=== PATIENT | female | born 1950 | race American Indian/Alaskan Native ===

== ENCOUNTER 2016-11-07 08:37 | Outpatient (CLI) | payer MEDICARE ==
--- NOTE | 2016-11-07 15:45 | PET Report ---
PET/CT:11/07/16 CLINICAL: Breast cancer restaging. RADIOPHARMACEUTICAL: 14.0mCi F18-FDG. COMPARISON: 01/03/15 PET/CT TECHNIQUE- Following intravenous injection of F-18 FDG and an approximately 60 minute uptake period, CT and PET images from the mid skull to the upper thighs were acquired with the patient in the fasted state. No contrast was administered. The CT protocol used for this PET CT study is designed for attenuation correction and anatomic localization of PET abnormalities. This bagging salvager CT is not desired to produce and cannot replace, [id number] diagnostic CT scans with specific imaging protocols for different body parts and indications. Plasma glucose at the time of this test: 117g/dl. The standardized uptake values (SUV) are normalized to patient body weight and indicate the highest activity concentration (SUV max) in a given disease site. FINDINGS: Brain--Physiologic FDG uptake in the visualized regions of the brain. Neck--Physiologic FDG uptake . Chest--Physiologic FDG uptake in mediastinal blood pool and myocardium. Massive cardiomegaly with increased size of the heart since the last exam. Lungs--No abnormal uptake. No pulmonary nodule or mass. Pleura/pericardium--No abnormal uptake. Diffuse pleural thickening has developed in the right hemithorax and there is a moderate size loculated pleural effusion or empyema. It contains no air. Thoracic nodes--No abnormal uptake. Hepatobiliary--No abnormal uptake. Liver background SUV mean, as a reference for comparing FDG studies, is 2.8 compared to 2.0 on the last exam. Stable 3 cm benign left hepatic cyst. No liver mass. Spleen--No abnormal uptake. Pancreas--No abnormal uptake. Adrenal Glands--No abnormal uptake. Kidneys/Ureters/Bladder--No abnormal uptake. Abdominopelvic Nodes--No abnormal uptake. Bowel/Peritoneum/Mesentery--No abnormal uptake. Pelvic organs--No abnormal uptake. Bones/Soft Tissues--No abnormal uptake. No bone lesions. Other findings: Status post right mastectomy. Large volume ascites. IMPRESSION-1. No evidence of FDG avid tumor. 2. Loculated right pleural effusion versus empyema. 3. Increased cardiomegaly and increased ascites.
== END 2016-11-07 08:38 | disposition home or self-care (01) ==
LOC: PET 08:37
PROVIDERS: ATTEND Internal Medicine Hematology & Oncology
DX: I50.9 Heart failure, unspecified (principal); C50.911 Malignant neoplasm of unspecified site of right female breast; I51.7 Cardiomegaly; J90 Pleural effusion, not elsewhere classified; K76.89 Other specified diseases of liver; R18.8 Other ascites; Z90.11 Acquired absence of right breast and nipple
CPT/HCPCS: 78815; 82962; A9552

== ENCOUNTER 2016-11-14 09:24 | Day surgery (SDC) | payer MEDICARE ==
[2016-11-14 10:41] LABS: INR 1.18 (0.87-1.13); Partial Thromboplastin Time < 20.0 Sec. (24.2-36.6)
[2016-11-14 13:35] VITALS: BP 120/78
--- NOTE | 2016-11-14 14:13 | Short Stay Summary ---
Short Stay Documentation Date of service: 11/14/16 - History Principal diagnosis: ascites H&P: obtained from office - Allergies and Medications Current Medications: Allergies grape Allergy (Verified 07/02/16 10:13) Itching pineapple Allergy (Verified 07/02/16 10:13) Itching Home Medications Medication Instructions Recorded Confirmed Last Taken Type Pravastatin Sodium [Pravastatin] 20 mg PO QHS 08/16/13 11/14/16 11/13/16 History Furosemide [Furosemide ORAL LIQ] 40 mg PO DAILY #30 ml 10/30/14 11/14/16 Rx Potassium Chloride [K-Dur] 20 meq PO QDAY 02/24/15 11/14/16 11/13/16 History Warfarin [Coumadin] 5 mg PO DAILY@1700 02/24/15 11/14/16 11/11/16 History Aspirin [Aspirin TAB] 325 mg PO ONCE 05/14/16 11/14/16 11/13/16 History amLODIPine [Norvasc] 10 mg PO DAILY 05/14/16 11/14/16 11/13/16 History Carvedilol [Coreg] 6.25 mg PO BID #60 tablet 06/13/16 11/14/16 11/13/16 Rx Lisinopril [Zestril TAB] 2.5 mg PO QDAY #30 tablet 06/13/16 11/14/16 11/13/16 Rx Digoxin [Lanoxin] 0.125 mg PO QDAY 08/20/16 11/14/16 11/13/16 History - Physical exam General appearance: no acute distress Gastrointestinal: distended - Brief post op/procedure progress note Date of procedure: 11/14/16 Pre-op diagnosis: ascites Post-op diagnosis: same Procedure: US paracentesis Anesthesia: local Surgeon: RAYMUNDO NIETO Estimated blood loss: none Pathology: none Specimen disposition: discarded Condition: stable - Disposition Condition at discharge: Good Short Stay Discharge Plan Additional Instructions: Make follow up appointment with .
--- NOTE | 2016-11-15 08:30 | Ultrasound Report ---
ULTRASOUND PARACENTESIS: HISTORY: Ascites. DESCRIPTION OF PROCEDURE: Informed consent was obtained. Sterile technique was utilized. 1% lidocaine for skin anesthesia. Using ultrasound guidance, a 5 Brazilian centesis needle was advanced into the left lower quadrant peritoneal space. There was spontaneous return of clear yellow fluid. 5.4 L of fluid was aspirated and discarded. No complications. IMPRESSION: Successful ultrasound-guided paracentesis.
== END 2016-11-14 13:20 ==
LOC: OPU 09:24
PROVIDERS: ATTEND Specialist
DX: R18.8 Other ascites (principal)
CPT/HCPCS: 36415; 49083; 85610; 85730

== ENCOUNTER 2016-12-16 09:32 | Day surgery (SDC) | payer MEDICARE ==
[2016-12-16 10:32] LABS: INR 1.34 (0.87-1.13)
[2016-12-16 10:33] LABS: Partial Thromboplastin Time 32.6 Sec. (24.2-36.6)
[2016-12-16] MEDS ORDERED: ALBURX 25% (ALBUMIN) IV ONE ×2 (11:56→11:57)
--- NOTE | 2016-12-16 12:00 | Short Stay Summary ---
Short Stay Documentation Date of service: 12/16/16 - Allergies and Medications Current Medications: Allergies grape Allergy (Verified 07/02/16 10:13) Itching pineapple Allergy (Verified 07/02/16 10:13) Itching Home Medications Medication Instructions Recorded Confirmed Last Taken Type Pravastatin Sodium [Pravastatin] 20 mg PO QHS 08/16/13 12/16/16 12/15/16 History 20mh Furosemide [Furosemide ORAL LIQ] 40 mg PO DAILY #30 ml 10/30/14 12/16/16 Rx 40mg Potassium Chloride [K-Dur] 20 meq PO QDAY 02/24/15 12/16/16 12/15/16 History 20meq Warfarin [Coumadin] 5 mg PO DAILY@1700 02/24/15 12/16/16 12/05/16 History Aspirin [Aspirin TAB] 325 mg PO ONCE 05/14/16 12/16/16 12/12/16 History 325mg amLODIPine [Norvasc] 10 mg PO DAILY 05/14/16 12/16/16 12/15/16 History 10mg Carvedilol [Coreg] 6.25 mg PO BID #60 tablet 06/13/16 12/16/16 12/15/16 Rx 6.25mg Lisinopril [Zestril TAB] 2.5 mg PO QDAY #30 tablet 06/13/16 12/16/16 12/15/16 Rx 2.5mg Digoxin [Lanoxin] 0.125 mg PO QDAY 08/20/16 12/16/16 12/15/16 History 0.125mg Active Medications Albumin Human (Alburx 25% (Albumin)) 25 gm IV ONCE ONE Stop: 12/16/16 11:57 - Physical exam General appearance: no acute distress Gastrointestinal: distended - Brief post op/procedure progress note Date of procedure: 12/16/16 Pre-op diagnosis: Ascites Post-op diagnosis: same Procedure: US guided paracentesis Anesthesia: local Findings: 7700 cc yellow serous fluid removed. Surgeon: THOMAS AGUILAR Estimated blood loss: none Condition: stable - Disposition Condition at discharge: Good Disposition: DISCHARGED TO HOME OR SELFCARE
--- NOTE | 2016-12-16 12:34 | Ultrasound Report ---
ULTRASOUND-GUIDED PARACENTESIS INDICATION: Ascites. COMPARISON: 11/14/2016. FINDINGS: After explaining the risk and benefits to the patient, written informed consent obtained. Using ultrasound guidance, an appropriate skin site in the left lower quadrant marked. Skin prepped and draped in the usual sterile fashion. 1% Xylocaine used for local anesthesia. Using ultrasound guidance, a 5 Naur[place] Yueh catheter was placed into the fluid collection and 7700 cc of straw-colored fluid aspirated. No sample sent to laboratory. Catheter removed and hemostasis achieved. Patient tolerated the procedure well and left the radiology department in stable condition. CONCLUSION: Ultrasound guided paracentesis, as described above. IV albumin would be administered in the [facility]PP[facility]. Dr. Patton present for and performed the entire procedure. Thank you for the opportunity to participate in this patient's care.
[2016-12-16 13:33] VITALS: BP 118/71
== END 2016-12-16 13:50 | disposition home or self-care (01) ==
LOC: OPU 09:32
PROVIDERS: ATTEND Specialist
DX: R18.8 Other ascites (principal); I48.91 Unspecified atrial fibrillation; E78.5 Hyperlipidemia, unspecified; D64.9 Anemia, unspecified; I11.0 Hypertensive heart disease with heart failure; I50.23 Acute on chronic systolic (congestive) heart failure; Z85.3 Personal history of malignant neoplasm of breast; Z79.01 Long term (current) use of anticoagulants
CPT/HCPCS: 36415; 49083; 85610; 85730; 96365; P9047

== ENCOUNTER 2017-01-16 08:18 | Day surgery (SDC) | payer MEDICARE ==
[2017-01-16 09:46] LABS: INR 1.52 (0.87-1.13)
[2017-01-16 09:47] LABS: Partial Thromboplastin Time 30.1 Sec. (24.2-36.6)
[2017-01-16 11:33] VITALS: BP 119/67
--- NOTE | 2017-01-16 11:58 | Short Stay Summary ---
Short Stay Documentation Date of service: 01/16/17 - History Principal diagnosis: Ascites - Allergies and Medications Current Medications: Allergies grape Allergy (Verified 07/02/16 10:13) Itching pineapple Allergy (Verified 07/02/16 10:13) Itching Home Medications Medication Instructions Recorded Confirmed Last Taken Type Pravastatin Sodium [Pravastatin] 20 mg PO QHS 08/16/13 01/16/17 01/15/17 History Furosemide [Furosemide ORAL LIQ] 40 mg PO DAILY #30 ml 10/30/14 01/16/17 Rx Potassium Chloride [K-Dur] 20 meq PO QDAY 02/24/15 01/16/17 01/15/17 History Warfarin [Coumadin] 5 mg PO DAILY@1700 02/24/15 01/16/17 01/12/17 History Aspirin [Aspirin TAB] 325 mg PO ONCE 05/14/16 01/16/17 01/12/17 History amLODIPine [Norvasc] 10 mg PO DAILY 05/14/16 01/16/17 01/15/17 History Carvedilol [Coreg] 6.25 mg PO BID #60 tablet 06/13/16 01/16/17 01/15/17 Rx Lisinopril [Zestril TAB] 2.5 mg PO QDAY #30 tablet 06/13/16 01/16/17 01/15/17 Rx Digoxin [Lanoxin] 0.125 mg PO QDAY 08/20/16 01/16/17 01/15/17 History - Physical exam General appearance: no acute distress - Brief post op/procedure progress note Date of procedure: 01/16/17 Pre-op diagnosis: Ascites Post-op diagnosis: same Procedure: Paracentesis Anesthesia: local Estimated blood loss: none Pathology: none Specimen disposition: discarded Condition: stable - Disposition Condition at discharge: Good Disposition: DISCHARGED TO HOME OR SELFCARE Short Stay Discharge Plan Additional Instructions: Follow up with MD as scheduled.
--- NOTE | 2017-01-29 08:36 | Ultrasound Report ---
Ultrasound guided paracentesis. History: Ascites. Procedure: The patient's skin surface overlying the left lower quadrant was prepped and draped using sterile technique. Local anesthetic was injected in the skin. Using sonographic guidance, a 5 Kiswahili Yueh catheter was inserted into the fluid collection. 3.5 L of serous fluid was aspirated. The patient tolerated the procedure well clinically.
== END 2017-01-16 12:25 | disposition home or self-care (01) ==
LOC: OPU 08:18 → EDSTATUS 09:00 → OPU 12:25
PROVIDERS: ATTEND Specialist
DX: R18.8 Other ascites (principal); I10 Essential (primary) hypertension; E78.5 Hyperlipidemia, unspecified; I48.91 Unspecified atrial fibrillation; Z85.3 Personal history of malignant neoplasm of breast; Z90.11 Acquired absence of right breast and nipple; Z79.899 Other long term (current) drug therapy; Z80.42 Family history of malignant neoplasm of prostate; Z80.1 Family history of malignant neoplasm of trachea, bronchus and lung; Z82.3 Family history of stroke; Z82.49 Family history of ischemic heart disease and other diseases of the circulatory system; Z83.1 Family history of other infectious and parasitic diseases
CPT/HCPCS: 36415; 49083; 85610; 85730

== ENCOUNTER 2017-02-13 08:20 | Day surgery (SDC) | payer MEDICARE ==
[2017-02-13 10:21] LABS: INR 1.51 (0.87-1.13); Partial Thromboplastin Time 28.8 Sec. (24.2-36.6)
--- NOTE | 2017-02-13 13:04 | Short Stay Summary ---
Short Stay Documentation Date of service: 02/13/17 - History Past Medical History: cancer - Allergies and Medications Current Medications: Allergies grape Allergy (Verified 07/02/16 10:13) Itching pineapple Allergy (Verified 07/02/16 10:13) Itching Home Medications Medication Instructions Recorded Confirmed Last Taken Type Pravastatin Sodium [Pravastatin] 20 mg PO QHS 08/16/13 02/13/17 02/05/17 History Furosemide [Furosemide ORAL LIQ] 40 mg PO DAILY #30 ml 10/30/14 02/13/17 Rx Potassium Chloride [K-Dur] 20 meq PO QDAY 02/24/15 02/13/17 02/12/17 History Warfarin [Coumadin] 5 mg PO DAILY@1700 02/24/15 02/13/17 02/09/17 History Aspirin [Aspirin TAB] 325 mg PO ONCE 05/14/16 02/13/17 02/09/17 History amLODIPine [Norvasc] 10 mg PO DAILY 05/14/16 02/13/17 02/12/17 History Carvedilol [Coreg] 6.25 mg PO BID #60 tablet 06/13/16 02/13/17 02/12/17 Rx Lisinopril [Zestril TAB] 2.5 mg PO QDAY #30 tablet 06/13/16 02/13/17 02/12/17 Rx Digoxin [Lanoxin] 0.125 mg PO QDAY 08/20/16 02/13/17 02/12/17 History - Physical exam General appearance: no acute distress Gastrointestinal: distended - Brief post op/procedure progress note Date of procedure: 02/13/17 Pre-op diagnosis: Ascites, mets, breast Ca Post-op diagnosis: same Procedure: US guided paracentesis Anesthesia: local Findings: 4800 cc of blood tinged fluid removed. Surgeon: THOMAS AGUILAR Estimated blood loss: none Specimen disposition: discarded Condition: stable
--- NOTE | 2017-02-13 13:06 | Ultrasound Report ---
ULTRASOUND-GUIDED PARACENTESIS INDICATION: Ascites. Breast carcinoma, metastases. COMPARISON: 01/16/2017. FINDINGS: After explaining the risk and benefits to the patient, written informed consent obtained. Using ultrasound guidance, an appropriate skin site in the left lower quadrant marked. Skin prepped and draped in the usual sterile fashion. 1% Xylocaine used for local anesthesia. Using ultrasound guidance, a 5 [place] Yueh catheter was placed into the fluid collection and 4800 cc of blood-tinged serous fluid aspirated. No sample sent to laboratory. Catheter removed and hemostasis achieved. Patient tolerated the procedure well and left the radiology department in stable condition. CONCLUSION: Ultrasound guided paracentesis, as described above. Dr. Patton present for and performed the entire procedure. Thank you for the opportunity to participate in this patient's care.
[2017-02-13 13:18] VITALS: BP 121/70
== END 2017-02-13 13:25 | disposition home or self-care (01) ==
LOC: OPU 08:20 → EDSTATUS 09:00 → OPU 13:25
PROVIDERS: ATTEND Specialist
DX: R18.8 Other ascites (principal); C50.919 Malignant neoplasm of unspecified site of unspecified female breast; Z79.01 Long term (current) use of anticoagulants
CPT/HCPCS: 36415; 49083; 85610; 85730

== ENCOUNTER 2017-03-27 08:23 | Day surgery (SDC) | payer MEDICARE ==
[2017-03-27 09:29] LABS: Eosinophils % (Auto) 6.4 % (0.0-4.3); Hematocrit 35.5 % (30.3-42.9); Hemoglobin 11.4 gm/dl (10.1-14.3); Mean Corpuscular HGB Conc 32 % (30-34); Mean Corpuscular Hemoglobin 26 pg (28-32); Mean Corpuscular Volume 82 fl (79-97); Platelet Count 191 K/mm3 (140-440); Red Blood Count 4.34 M/mm3 (3.65-5.03); Red Cell Distribution Width 19.5 % (13.2-15.2)
[2017-03-27 09:37] LABS: INR 1.48 (0.87-1.13)
--- NOTE | 2017-03-27 12:52 | Short Stay Summary ---
Short Stay Documentation Date of service: 03/27/17 - History Past Medical History: cancer - Allergies and Medications Current Medications: Allergies grape Allergy (Verified 07/02/16 10:13) Itching pineapple Allergy (Verified 07/02/16 10:13) Itching Home Medications Medication Instructions Recorded Confirmed Last Taken Type Pravastatin Sodium [Pravastatin] 20 mg PO QHS 08/16/13 03/27/17 03/26/17 History Furosemide [Furosemide ORAL LIQ] 40 mg PO DAILY #30 ml 10/30/14 03/27/17 Rx Potassium Chloride [K-Dur] 20 meq PO QDAY 02/24/15 03/27/17 03/26/17 History Warfarin [Coumadin] 5 mg PO DAILY@1700 02/24/15 03/27/17 03/23/17 History Aspirin [Aspirin TAB] 325 mg PO ONCE 05/14/16 03/27/17 03/26/17 History amLODIPine [Norvasc] 10 mg PO DAILY 05/14/16 03/27/17 03/26/17 History Carvedilol [Coreg] 6.25 mg PO BID #60 tablet 06/13/16 03/27/17 03/26/17 Rx Lisinopril [Zestril TAB] 2.5 mg PO QDAY #30 tablet 06/13/16 03/27/17 03/26/17 Rx Digoxin [Lanoxin] 0.125 mg PO QDAY 08/20/16 03/27/17 03/26/17 History - Physical exam General appearance: no acute distress Gastrointestinal: distended - Brief post op/procedure progress note Date of procedure: 03/27/17 Pre-op diagnosis: Ascites Post-op diagnosis: same Procedure: US guided paracentesis. Anesthesia: local Findings: 5300 cc blood tinged serous fluid removed. Surgeon: THOMAS AGUILAR Estimated blood loss: none Specimen disposition: discarded Condition: stable - Disposition Condition at discharge: Good Disposition: DISCHARGED TO HOME OR SELFCARE Short Stay Discharge Plan Follow up with: SOFIE VASUQEZ MD [Primary Care Provider] - 7 Days
--- NOTE | 2017-03-27 12:58 | Ultrasound Report ---
ULTRASOUND-GUIDED PARACENTESIS INDICATION: Ascites. Breast cancer. COMPARISON: 02/13/2017. FINDINGS: After explaining the risk and benefits to the patient, written informed consent obtained. Using ultrasound guidance, an appropriate skin site in the left lower quadrant marked. Skin prepped and draped in the usual sterile fashion. 1% Xylocaine used for local anesthesia. Using ultrasound guidance, a 5 Maltese Yueh catheter was placed into the fluid collection and 5300 cc of blood-tinged serous fluid aspirated. No sample sent to laboratory. Catheter removed and hemostasis achieved. Patient tolerated the procedure well and left the radiology department in stable condition. CONCLUSION: Ultrasound guided paracentesis, as described above. Dr. Patton present for and performed the entire procedure. Thank you for the opportunity to participate in this patient's care.
[2017-03-27 13:19] VITALS: BP 119/60
== END 2017-03-27 08:24 | disposition home or self-care (01) ==
LOC: OPU 08:23
PROVIDERS: ATTEND Specialist
DX: R18.8 Other ascites (principal); Z91.018 Allergy to other foods; Z85.3 Personal history of malignant neoplasm of breast
CPT/HCPCS: 36415; 49083; 85025; 85610

== ENCOUNTER 2017-04-25 07:55 | Day surgery (SDC) | payer MEDICARE ==
[2017-04-25] MEDS ORDERED: ALBURX 25% (ALBUMIN) IV PRN (10:31)
--- NOTE | 2017-04-25 10:31 | Short Stay Summary ---
Short Stay Documentation Date of service: 04/25/17 - History Principal diagnosis: ascites H&P: obtained from office - Allergies and Medications Current Medications: Allergies grape Allergy (Verified 07/02/16 10:13) Itching pineapple Allergy (Verified 07/02/16 10:13) Itching Home Medications Medication Instructions Recorded Confirmed Last Taken Type Pravastatin Sodium [Pravastatin] 20 mg PO QHS 08/16/13 04/25/17 04/24/17 History Furosemide [Furosemide ORAL LIQ] 40 mg PO DAILY #30 ml 10/30/14 04/25/17 Rx Potassium Chloride [K-Dur] 20 meq PO QDAY 02/24/15 04/25/17 04/24/17 History Warfarin [Coumadin] 5 mg PO DAILY@1700 02/24/15 04/25/17 04/22/17 History Aspirin [Aspirin TAB] 325 mg PO ONCE 05/14/16 04/25/17 04/24/17 History amLODIPine [Norvasc] 10 mg PO DAILY 05/14/16 04/25/17 04/24/17 History Carvedilol [Coreg] 6.25 mg PO BID #60 tablet 06/13/16 04/25/17 04/24/17 Rx Lisinopril [Zestril TAB] 2.5 mg PO QDAY #30 tablet 06/13/16 04/25/17 04/24/17 Rx Digoxin [Lanoxin] 0.125 mg PO QDAY 08/20/16 04/25/17 04/24/17 History - Physical exam General appearance: no acute distress Gastrointestinal: distended - Brief post op/procedure progress note Date of procedure: 04/25/17 Pre-op diagnosis: ascites Post-op diagnosis: same Procedure: US paracentesis Anesthesia: local Findings: large ascites Surgeon: RAYMUNDO NIETO Estimated blood loss: none Pathology: none Specimen disposition: discarded Condition: stable - Disposition Condition at discharge: Good Disposition: DC-01 TO HOME OR SELFCARE Short Stay Discharge Plan Follow up with: SOFIE VASQUEZ MD [Primary Care Provider] - 7 Days
--- NOTE | 2017-04-25 11:38 | Ultrasound Report ---
ULTRASOUND PARACENTESIS History: Ascites. Description of procedure: Informed consent was obtained. Sterile technique was utilized. Using ultrasound guidance, a 5 [place]orese centesis needle was advanced into the left lower quadrant peritoneal space. There was spontaneous return of clear yellow fluid. 7.3 L of fluid was aspirated and discarded. No complications. Impression: Successful ultrasound guided large volume paracentesis.
[2017-04-25 12:24] VITALS: BP 117/74
== END 2017-04-25 13:00 | disposition home or self-care (01) ==
LOC: OPU 07:55
PROVIDERS: ATTEND Specialist
DX: R18.8 Other ascites (principal); I10 Essential (primary) hypertension; Z79.899 Other long term (current) drug therapy; Z79.01 Long term (current) use of anticoagulants; Z91.018 Allergy to other foods
CPT/HCPCS: 49083; 96365; P9047

== ENCOUNTER 2017-05-26 06:31 | Day surgery (SDC) | payer MEDICARE ==
[2017-05-26 07:38] VITALS: BP 119/66
[2017-05-26 08:10] LABS: INR 1.37 (0.87-1.13); Partial Thromboplastin Time 30.4 Sec. (24.2-36.6)
== END 2017-05-26 08:30 | disposition home or self-care (01) ==
LOC: CATHLABREC 06:31 → EDSTATUS 07:30 → CATHLABREC 08:30
PROVIDERS: ATTEND Specialist
DX: R18.8 Other ascites (principal); Z53.8 Procedure and treatment not carried out for other reasons
CPT/HCPCS: 36415; 85610; 85730

== ENCOUNTER 2017-05-29 06:55 | Day surgery (SDC) | payer MEDICARE ==
[2017-05-29 08:36] LABS: INR 1.39 (0.87-1.13)
[2017-05-29 08:37] LABS: Partial Thromboplastin Time 29.5 Sec. (24.2-36.6)
[2017-05-29] MEDS ORDERED: ALBURX 25% (ALBUMIN) IV ONE ×2 (11:10→11:13)
--- NOTE | 2017-05-29 12:13 | Short Stay Summary ---
Short Stay Documentation Date of service: 05/29/17 - History Principal diagnosis: Ascites - Allergies and Medications Current Medications: Allergies grape Allergy (Verified 07/02/16 10:13) Itching pineapple Allergy (Verified 07/02/16 10:13) Itching Home Medications Medication Instructions Recorded Confirmed Last Taken Type Pravastatin Sodium [Pravastatin] 20 mg PO QHS 08/16/13 05/29/17 05/28/17 History Furosemide [Furosemide ORAL LIQ] 40 mg PO DAILY #30 ml 10/30/14 05/29/17 Rx Potassium Chloride [K-Dur] 20 meq PO QDAY 02/24/15 05/29/17 05/28/17 History Warfarin [Coumadin] 5 mg PO DAILY@1700 02/24/15 05/29/17 05/22/17 History 5mg Aspirin [Aspirin TAB] 325 mg PO ONCE 05/14/16 05/29/17 05/22/17 History 325mg amLODIPine [Norvasc] 10 mg PO DAILY 05/14/16 05/29/17 05/28/17 History Carvedilol [Coreg] 6.25 mg PO BID #60 tablet 06/13/16 05/29/17 05/28/17 Rx Lisinopril [Zestril TAB] 2.5 mg PO QDAY #30 tablet 06/13/16 05/29/17 05/28/17 Rx Digoxin [Lanoxin] 0.125 mg PO QDAY 08/20/16 05/29/17 05/28/17 History - Physical exam General appearance: no acute distress Gastrointestinal: distended - Brief post op/procedure progress note Date of procedure: 05/29/17 Pre-op diagnosis: Ascites Post-op diagnosis: same Procedure: Paracentesis Surgeon: JAMES JIMENEZ Estimated blood loss: none Pathology: none Specimen disposition: discarded Condition: stable - Disposition Condition at discharge: Good Disposition: DC-01 TO HOME OR SELFCARE Short Stay Discharge Plan Follow up with: BLANCA IQBAL MD [Staff Physician] - 7 Days SOFIE VASQUEZ MD [Primary Care Provider] - 7 Days
[2017-05-29 13:46] VITALS: BP 112/65
--- NOTE | 2017-05-29 14:37 | Ultrasound Report ---
Ultrasound guided paracentesis. History: Ascites. Procedure: The patient's skin surface overlying the left lower quadrant was prepped and draped using sterile technique. Local anesthetic was injected into the skin. Using sonographic guidance, a 5 Turkish catheter was inserted into the fluid collection. Approximately 8 L of serous fluid was aspirated and discarded. After the procedure, the patient was given 50 g of albumin intravenously. The patient was then discharged in satisfactory condition.
== END 2017-05-29 13:35 | disposition home or self-care (01) ==
LOC: CATHLABREC 06:55
PROVIDERS: ATTEND Specialist
DX: R18.8 Other ascites (principal); Z91.018 Allergy to other foods; Z79.01 Long term (current) use of anticoagulants
CPT/HCPCS: 36415; 49083; 85610; 85730; 96365; 96366; P9047

== ENCOUNTER 2017-06-26 07:02 | Day surgery (SDC) | payer MEDICARE ==
[2017-06-26 08:14] LABS: INR 1.3 (0.87-1.13)
[2017-06-26 08:15] LABS: Partial Thromboplastin Time 29.6 Sec. (24.2-36.6)
--- NOTE | 2017-06-26 10:10 | History and Physical Report ---
History of Present Illness Date of examination: 06/26/17 Chief complaint: distended abdomen Medications and Allergies Allergies Allergy/AdvReac Type Severity Reaction Status Date / Time grape Allergy Itching Verified 07/02/16 10:13 pineapple Allergy Itching Verified 07/02/16 10:13 Home Medications Medication Instructions Recorded Confirmed Last Taken Type Pravastatin Sodium [Pravastatin] 20 mg PO QHS 08/16/13 06/26/17 06/25/17 History Furosemide [Furosemide ORAL LIQ] 40 mg PO DAILY #30 ml 10/30/14 06/26/17 Rx Potassium Chloride [K-Dur] 20 meq PO QDAY 02/24/15 06/26/17 06/25/17 History Warfarin [Coumadin] 5 mg PO DAILY@1700 02/24/15 06/26/17 06/22/17 History Aspirin [Aspirin TAB] 325 mg PO ONCE 05/14/16 06/26/17 06/22/17 History amLODIPine [Norvasc] 10 mg PO DAILY 05/14/16 06/26/17 06/25/17 History Carvedilol [Coreg] 6.25 mg PO BID #60 tablet 06/13/16 06/26/17 06/25/17 Rx Lisinopril [Zestril TAB] 2.5 mg PO QDAY #30 tablet 06/13/16 06/26/17 06/25/17 Rx Digoxin [Lanoxin] 0.125 mg PO QDAY 08/20/16 06/26/17 06/25/17 History Palbociclib [Ibrance] 125 mg PO QDAY 06/26/17 06/26/17 06/25/17 History Exam Vital Signs Temp Pulse Resp BP Pulse Ox 97.6 F 62 18 118/68 94 06/26/17 07:30 06/26/17 07:30 06/26/17 07:30 06/26/17 07:30 06/26/17 07:30
--- NOTE | 2017-06-26 10:12 | Procedure Note ---
Date of procedure: 06/26/17 Pre-op diagnosis: ascites Post-op diagnosis: same Procedure: paracentesis Findings: straw colored fluid Anesthesia: local Surgeon: KIKI CAMILO Estimated blood loss: none Pathology: none Specimen disposition: discarded Condition: stable Disposition: observation
--- NOTE | 2017-06-26 11:10 | Ultrasound Report ---
Ultrasound guided paracentesis: Ascites. Imaging of the abdomen demonstrated a significant by him of free peritoneal fluid. An approach site in the left flank was chosen. The skin was cleansed and 1% lidocaine used for local anesthesia. The area was draped. A small skin mansoor was made through which a 5 [place] Yueh catheter was successfully placed into the fluid collection. A total of 5.7 L of straw-colored fluid was removed without complication. The fluid was discarded. The patient was sent to the observation prior to discharge.
[2017-06-26 11:16] VITALS: BP 113/60
== END 2017-06-26 11:35 | disposition home or self-care (01) ==
LOC: CATHLABREC 07:02 → EDSTATUS 07:30 → CATHLABREC 11:35
PROVIDERS: ATTEND Specialist
DX: R18.8 Other ascites (principal); Z91.018 Allergy to other foods; Z79.01 Long term (current) use of anticoagulants
CPT/HCPCS: 36415; 49083; 85610; 85730

== ENCOUNTER 2017-07-21 06:52 | Day surgery (SDC) | payer MEDICARE ==
[2017-07-21 08:08] LABS: INR 1.28 (0.87-1.13); Partial Thromboplastin Time 32.5 Sec. (24.2-36.6)
[2017-07-21 09:44] VITALS: BP 124/65
--- NOTE | 2017-07-21 09:52 | Ultrasound Report ---
ULTRASOUND-GUIDED PARACENTESIS INDICATION: Ascites. Metastatic breast cancer. COMPARISON: 06/26/2017. FINDINGS: After explaining the risk and benefits to the patient, written informed consent obtained. Using ultrasound guidance, an appropriate skin site in the left lower quadrant marked. Skin prepped and draped in the usual sterile fashion. 1% Xylocaine used for local anesthesia. Using ultrasound guidance, a 5 Indonesian Yueh catheter was placed into the fluid collection and 4600 cc of dark yellow fluid aspirated. No sample sent to laboratory. Catheter removed and hemostasis achieved. Patient tolerated the procedure well and left the radiology department in stable condition. CONCLUSION: Ultrasound guided paracentesis, as described above. Dr. Patton present for and performed the entire procedure. Thank you for the opportunity to participate in this patient's care.
--- NOTE | 2017-07-21 09:58 | Short Stay Summary ---
Short Stay Documentation Date of service: 07/21/17 - History Past Medical History: cancer - Allergies and Medications Current Medications: Allergies grape Allergy (Verified 07/02/16 10:13) Itching pineapple Allergy (Verified 07/02/16 10:13) Itching Home Medications Medication Instructions Recorded Confirmed Last Taken Type Pravastatin Sodium [Pravastatin] 20 mg PO QHS 08/16/13 07/21/17 07/20/17 History Furosemide [Furosemide ORAL LIQ] 40 mg PO DAILY #30 ml 10/30/14 07/21/17 Rx Potassium Chloride [K-Dur] 20 meq PO QDAY 02/24/15 07/21/17 07/20/17 History Warfarin [Coumadin] 5 mg PO DAILY@1700 02/24/15 07/21/17 07/17/17 History Aspirin [Aspirin TAB] 325 mg PO ONCE 05/14/16 07/21/17 07/20/17 History amLODIPine [Norvasc] 10 mg PO DAILY 05/14/16 07/21/17 07/20/17 History Carvedilol [Coreg] 6.25 mg PO BID #60 tablet 06/13/16 07/21/17 07/20/17 Rx Lisinopril [Zestril TAB] 2.5 mg PO QDAY #30 tablet 06/13/16 07/21/17 07/20/17 Rx Digoxin [Lanoxin] 0.125 mg PO QDAY 08/20/16 07/21/17 07/20/17 History Palbociclib [Ibrance] 125 mg PO QDAY 06/26/17 07/21/17 07/20/17 History - Physical exam General appearance: no acute distress Gastrointestinal: distended - Brief post op/procedure progress note Date of procedure: 07/21/17 Pre-op diagnosis: Ascites Post-op diagnosis: same Procedure: US guided paracentesis Anesthesia: local Findings: 4.6 liters of yellow serous fuid removed. Surgeon: THOMAS AGUILAR Estimated blood loss: none Specimen disposition: discarded Condition: stable - Disposition Condition at discharge: Stable Disposition: DC-01 TO HOME OR SELFCARE Short Stay Discharge Plan Follow up with: SOFIE VASQUEZ MD [Primary Care Provider] - 7 Days
== END 2017-07-21 11:00 | disposition home or self-care (01) ==
LOC: CATHLABREC 06:52 → EDSTATUS 07:30 → CATHLABREC 11:00
PROVIDERS: ATTEND Specialist
DX: R18.8 Other ascites (principal); C50.919 Malignant neoplasm of unspecified site of unspecified female breast; Z79.01 Long term (current) use of anticoagulants; Z91.018 Allergy to other foods
CPT/HCPCS: 36415; 49083; 85610; 85730

== ENCOUNTER 2017-08-26 06:56 | Day surgery (SDC) | payer MEDICARE ==
[2017-08-26 08:01] LABS: Hematocrit 31.1 % (30.3-42.9); Hemoglobin 10.7 gm/dl (10.1-14.3); Mean Corpuscular HGB Conc 34 % (30-34); Mean Corpuscular Hemoglobin 33 pg (28-32); Mean Corpuscular Volume 95 fl (79-97); Platelet Count 111 K/mm3 (140-440); Red Blood Count 3.26 M/mm3 (3.65-5.03)
[2017-08-26 08:12] LABS: INR 1.28 (0.87-1.13)
[2017-08-26 08:13] LABS: Partial Thromboplastin Time 30.3 Sec. (24.2-36.6)
[2017-08-26 08:15] LABS: Red Cell Distribution Width 26.9 % (13.2-15.2); White Blood Count 2.2 K/mm3 (4.5-11.0)
--- NOTE | 2017-08-26 10:34 | Ultrasound Report ---
ULTRASOUND-GUIDED PARACENTESIS INDICATION: Ascites. COMPARISON: 07/21/2017. FINDINGS: After explaining the risk and benefits to the patient, written informed consent obtained. Using ultrasound guidance, an appropriate skin site in the right lower quadrant marked. Skin prepped and draped in the usual sterile fashion. 1% Xylocaine used for local anesthesia. Using ultrasound guidance, a 5 Kyrgyz Yueh catheter was placed into the fluid collection and 3800 cc of dark yellow/slight blood tinged fluid aspirated. No sample sent to laboratory. Catheter removed and hemostasis achieved. Patient tolerated the procedure well and left the radiology department in stable condition. CONCLUSION: Ultrasound guided paracentesis, as described above. Dr. Patton present for and performed the entire procedure. Thank you for the opportunity to participate in this patient's care.
[2017-08-26 10:40] VITALS: BP 115/75
--- NOTE | 2017-08-26 10:40 | Short Stay Summary ---
Short Stay Documentation Date of service: 08/26/17 - Allergies and Medications Current Medications: Allergies grape Allergy (Verified 07/02/16 10:13) Itching pineapple Allergy (Verified 07/02/16 10:13) Itching Home Medications Medication Instructions Recorded Confirmed Last Taken Type Pravastatin Sodium [Pravastatin] 20 mg PO QHS 08/16/13 08/26/17 08/25/17 History Furosemide [Furosemide ORAL LIQ] 40 mg PO DAILY #30 ml 10/30/14 08/26/17 Rx Potassium Chloride [K-Dur] 20 meq PO QDAY 02/24/15 08/26/17 08/25/17 History Warfarin [Coumadin] 6 mg PO DAILY@1700 02/24/15 08/26/17 08/22/17 History Aspirin [Aspirin TAB] 325 mg PO ONCE 05/14/16 08/26/17 08/22/17 History amLODIPine [Norvasc] 10 mg PO DAILY 05/14/16 08/26/17 08/25/17 History Carvedilol [Coreg] 6.25 mg PO BID #60 tablet 06/13/16 08/26/17 08/25/17 Rx Lisinopril [Zestril TAB] 2.5 mg PO QDAY #30 tablet 06/13/16 08/26/17 08/25/17 Rx Digoxin [Lanoxin] 0.125 mg PO QDAY 08/20/16 08/26/17 08/25/17 History Palbociclib [Ibrance] 125 mg PO QDAY 06/26/17 08/26/17 08/25/17 History - Physical exam General appearance: no acute distress Gastrointestinal: distended - Brief post op/procedure progress note Date of procedure: 08/26/17 Pre-op diagnosis: Ascites Post-op diagnosis: same Procedure: US guided paracentesis Anesthesia: local Findings: 3800 dark yellow/slight blood tinged fluid removed. Surgeon: THOMAS AGUILAR Estimated blood loss: none Specimen disposition: discarded Condition: stable - Disposition Condition at discharge: Stable Disposition: DC-01 TO HOME OR SELFCARE Short Stay Discharge Plan Additional Instructions: Resume diet, activity and medications as prior to admission. May shower 08/27/2017. Report to MD any redness, swelling, drainage or fever. Follow up with Dr. Carvalho as needed. Follow up with: SOFIE VASQUEZ MD [Primary Care Provider] - 7 Days
== END 2017-08-26 11:00 | disposition home or self-care (01) ==
LOC: CATHLABREC 06:56 → EDSTATUS 07:30 → CATHLABREC 11:00
PROVIDERS: ATTEND Specialist
DX: R18.8 Other ascites (principal); J90 Pleural effusion, not elsewhere classified; Z79.82 Long term (current) use of aspirin; Z79.01 Long term (current) use of anticoagulants; Z79.899 Other long term (current) drug therapy; Z91.018 Allergy to other foods
CPT/HCPCS: 36415; 49083; 85027; 85610; 85730

== ENCOUNTER 2017-09-25 07:01 | Day surgery (SDC) | payer MEDICARE ==
[2017-09-25 09:16] LABS: INR 1.31 (0.87-1.13)
[2017-09-25 09:17] LABS: Partial Thromboplastin Time 29.9 Sec. (24.2-36.6)
[2017-09-25] MEDS ORDERED: ALBURX 25% (ALBUMIN) IV PRN (10:31)
--- NOTE | 2017-09-25 10:31 | Short Stay Summary ---
Short Stay Documentation Date of service: 09/25/17 - History Principal diagnosis: ascites H&P: obtained from office - Allergies and Medications Current Medications: Allergies grape Allergy (Verified 07/02/16 10:13) Itching pineapple Allergy (Verified 07/02/16 10:13) Itching Home Medications Medication Instructions Recorded Confirmed Last Taken Type Pravastatin Sodium [Pravastatin] 20 mg PO QHS 08/16/13 08/26/17 08/25/17 History Furosemide [Furosemide ORAL LIQ] 40 mg PO DAILY #30 ml 10/30/14 08/26/17 Rx Potassium Chloride [K-Dur] 20 meq PO QDAY 02/24/15 08/26/17 08/25/17 History Warfarin [Coumadin] 6 mg PO DAILY@1700 02/24/15 08/26/17 08/22/17 History Aspirin [Aspirin TAB] 325 mg PO ONCE 05/14/16 08/26/17 08/22/17 History amLODIPine [Norvasc] 10 mg PO DAILY 05/14/16 08/26/17 08/25/17 History Carvedilol [Coreg] 6.25 mg PO BID #60 tablet 06/13/16 08/26/17 08/25/17 Rx Lisinopril [Zestril TAB] 2.5 mg PO QDAY #30 tablet 06/13/16 08/26/17 08/25/17 Rx Digoxin [Lanoxin] 0.125 mg PO QDAY 08/20/16 08/26/17 08/25/17 History Palbociclib [Ibrance] 125 mg PO QDAY 06/26/17 08/26/17 08/25/17 History - Physical exam General appearance: no acute distress Gastrointestinal: distended - Brief post op/procedure progress note Date of procedure: 09/25/17 Pre-op diagnosis: ascites Post-op diagnosis: same Procedure: US paracentesis Anesthesia: local Findings: large ascites Surgeon: RAYMUNDO NIETO Estimated blood loss: none Pathology: none Specimen disposition: discarded Condition: stable - Disposition Condition at discharge: Good Disposition: DC-01 TO HOME OR SELFCARE Short Stay Discharge Plan Follow up with: SOFIE VASQUEZ MD [Primary Care Provider] - 7 Days
--- NOTE | 2017-09-25 12:25 | Ultrasound Report ---
ULTRASOUND PARACENTESIS History: Ascites. Description of procedure: Informed consent was obtained. Sterile technique was utilized. 1% lidocaine for skin anesthesia. Using ultrasound guidance, a 5 Korean centesis needle was advanced into the left lower quadrant peritoneal space. There was spontaneous return of blood-tinged fluid. 6.3 L of fluid was aspirated and discarded. No complications. Impression: Successful ultrasound guided paracentesis as described.
[2017-09-25 12:42] VITALS: BP 118/58
== END 2017-09-25 12:45 | disposition home or self-care (01) ==
LOC: CATHLABREC 07:01 → EDSTATUS 07:30 → CATHLABREC 12:45
PROVIDERS: ATTEND Specialist
DX: R18.8 Other ascites (principal); Z79.01 Long term (current) use of anticoagulants; Z91.018 Allergy to other foods; Z79.82 Long term (current) use of aspirin; Z79.899 Other long term (current) drug therapy
CPT/HCPCS: 36415; 49083; 85610; 85730; 96365; P9047

== ENCOUNTER 2017-10-24 06:44 | Day surgery (SDC) | payer MEDICARE ==
[2017-10-24 08:08] LABS: INR 1.24 (0.87-1.13)
[2017-10-24 08:09] LABS: Partial Thromboplastin Time 30.4 Sec. (24.2-36.6)
[2017-10-24] MEDS ORDERED: ALBURX 25% (ALBUMIN) IV PRN (09:30)
--- NOTE | 2017-10-24 09:30 | Short Stay Summary ---
Short Stay Documentation Date of service: 10/24/17 - History Principal diagnosis: ascites H&P: obtained from office - Allergies and Medications Current Medications: Allergies grape Allergy (Verified 07/02/16 10:13) Itching pineapple Allergy (Verified 07/02/16 10:13) Itching Home Medications Medication Instructions Recorded Confirmed Last Taken Type Pravastatin Sodium [Pravastatin] 20 mg PO QHS 08/16/13 10/24/17 10/23/17 History 20mg Furosemide [Furosemide ORAL LIQ] 40 mg PO DAILY #30 ml 10/30/14 10/24/17 Rx 240mg Potassium Chloride [K-Dur] 20 meq PO QDAY 02/24/15 10/24/17 10/23/17 History 20meq Warfarin [Coumadin] 6 mg PO DAILY@1700 02/24/15 10/24/17 10/18/17 History 6mg Aspirin [Aspirin TAB] 325 mg PO ONCE 05/14/16 10/24/17 10/18/17 History 325mg amLODIPine [Norvasc] 10 mg PO DAILY 05/14/16 10/24/17 10/23/17 History 10mg Carvedilol [Coreg] 6.25 mg PO BID #60 tablet 06/13/16 10/24/17 10/23/17 Rx 6.25 Lisinopril [Zestril TAB] 2.5 mg PO QDAY #30 tablet 06/13/16 10/24/17 10/23/17 Rx 2.5mg Digoxin [Lanoxin] 0.125 mg PO QDAY 08/20/16 10/24/17 10/23/17 History 0.125mg Palbociclib [Ibrance] 125 mg PO QDAY 06/26/17 10/24/17 10/23/17 History 125mg - Physical exam General appearance: no acute distress Gastrointestinal: distended - Brief post op/procedure progress note Date of procedure: 10/24/17 Pre-op diagnosis: ascites Post-op diagnosis: same Procedure: US paracentesis Anesthesia: local Findings: large ascites Surgeon: RAYMUNDO NIETO Estimated blood loss: none Pathology: none Specimen disposition: discarded Condition: stable - Disposition Condition at discharge: Good Disposition: DC-01 TO HOME OR SELFCARE Short Stay Discharge Plan Follow up with: SOFIE VASQUEZ MD [Primary Care Provider] - 7 Days
--- NOTE | 2017-10-24 10:21 | Ultrasound Report ---
ULTRASOUND PARACENTESIS History: Ascites. Description of procedure: Informed consent was obtained. Sterile technique was utilized. Using ultrasound guidance, a 5 Italian centesis needle was advanced into the right lower quadrant peritoneal space. There was spontaneous return of clear yellow fluid. 6.3 L of fluid was aspirated and discarded. No complications. Impression: Successful ultrasound-guided paracentesis.
[2017-10-24 11:49] VITALS: BP 125/78
== END 2017-10-24 12:15 | disposition home or self-care (01) ==
LOC: CATHLABREC 06:44
PROVIDERS: ATTEND Specialist
DX: R18.8 Other ascites (principal); Z91.018 Allergy to other foods; Z79.82 Long term (current) use of aspirin; Z79.01 Long term (current) use of anticoagulants
CPT/HCPCS: 36415; 49083; 85610; 85730; 96365; P9047

== ENCOUNTER 2017-11-20 07:09 | Day surgery (SDC) | payer MEDICARE ==
[2017-11-20 09:11] LABS: INR 1.2 (0.87-1.13)
[2017-11-20 09:12] LABS: Partial Thromboplastin Time 29.2 Sec. (24.2-36.6)
[2017-11-20] MEDS ORDERED: ALBURX 25% (ALBUMIN) IV PRN (10:29)
--- NOTE | 2017-11-20 10:29 | Short Stay Summary ---
Short Stay Documentation Date of service: 11/20/17 - History Principal diagnosis: ascites H&P: obtained from office - Allergies and Medications Current Medications: Allergies grape Allergy (Verified 07/02/16 10:13) Itching pineapple Allergy (Verified 07/02/16 10:13) Itching Home Medications Medication Instructions Recorded Confirmed Last Taken Type Pravastatin Sodium [Pravastatin] 20 mg PO QHS 08/16/13 11/20/17 11/19/17 History Furosemide [Furosemide ORAL LIQ] 40 mg PO DAILY #30 ml 10/30/14 11/20/17 Rx Potassium Chloride [K-Dur] 20 meq PO QDAY 02/24/15 11/20/17 11/19/17 History Warfarin [Coumadin] 6 mg PO DAILY@1700 02/24/15 11/20/17 11/14/17 History Aspirin [Aspirin TAB] 325 mg PO ONCE 05/14/16 11/20/17 11/14/17 History amLODIPine [Norvasc] 10 mg PO DAILY 05/14/16 11/20/17 11/19/17 History Carvedilol [Coreg] 6.25 mg PO BID #60 tablet 06/13/16 11/20/17 11/19/17 Rx Lisinopril [Zestril TAB] 2.5 mg PO QDAY #30 tablet 06/13/16 11/20/17 11/19/17 Rx Digoxin [Lanoxin] 0.125 mg PO QDAY 08/20/16 11/20/17 11/19/17 History Palbociclib [Ibrance] 125 mg PO QDAY 06/26/17 11/20/17 11/19/17 History - Physical exam General appearance: no acute distress Gastrointestinal: distended - Brief post op/procedure progress note Date of procedure: 11/20/17 Pre-op diagnosis: ascites Post-op diagnosis: same Procedure: US paracentesis Anesthesia: local Surgeon: RAYMUNDO NIETO Estimated blood loss: none Pathology: none Specimen disposition: discarded Condition: stable - Disposition Condition at discharge: Good Disposition: DC-01 TO HOME OR SELFCARE Short Stay Discharge Plan Follow up with: SOFIE VASQUEZ MD [Primary Care Provider] - 7 Days
[2017-11-20 10:40] VITALS: BP 111/78
--- NOTE | 2017-11-20 11:32 | Ultrasound Report ---
ULTRASOUND PARACENTESIS HISTORY: Ascites. DESCRIPTION OF PROCEDURE: Informed consent was obtained. Sterile technique was utilized. 1% lidocaine for skin anesthesia. Using ultrasound guidance, a 5 Irish centesis needle was advanced into the left lower quadrant peritoneal space. There was spontaneous return of clear yellow fluid. 3.2 L of fluid was aspirated and discarded. No complications. IMPRESSION: Successful ultrasound guided paracentesis as described.
== END 2017-11-20 11:40 | disposition home or self-care (01) ==
LOC: CATHLABREC 07:09 → EDSTATUS 07:30 → CATHLABREC 11:40
PROVIDERS: ATTEND Specialist
DX: R18.8 Other ascites (principal); Z91.018 Allergy to other foods; Z79.899 Other long term (current) drug therapy; Z79.01 Long term (current) use of anticoagulants
CPT/HCPCS: 36415; 49083; 85610; 85730

== ENCOUNTER 2017-12-22 07:01 | Day surgery (SDC) | payer MEDICARE ==
[2017-12-22 08:14] LABS: INR 1.19 (0.87-1.13)
[2017-12-22 08:15] LABS: Partial Thromboplastin Time 29.8 Sec. (24.2-36.6)
--- NOTE | 2017-12-22 08:40 | Short Stay Summary ---
Short Stay Documentation Date of service: 12/22/17 - History Principal diagnosis: ascites, cirrhosis H&P: obtained from office - Allergies and Medications Current Medications: Allergies grape Allergy (Verified 07/02/16 10:13) Itching pineapple Allergy (Verified 07/02/16 10:13) Itching Home Medications Medication Instructions Recorded Confirmed Last Taken Type Pravastatin Sodium [Pravastatin] 20 mg PO QHS 08/16/13 12/22/17 12/21/17 History Furosemide [Furosemide ORAL LIQ] 40 mg PO DAILY #30 ml 10/30/14 12/22/17 Rx Potassium Chloride [K-Dur] 20 meq PO QDAY 02/24/15 12/22/17 12/21/17 History Warfarin [Coumadin] 6 mg PO DAILY@1700 02/24/15 12/22/17 12/17/17 History Aspirin [Aspirin TAB] 325 mg PO ONCE 05/14/16 12/22/17 12/17/17 History amLODIPine [Norvasc] 10 mg PO DAILY 05/14/16 12/22/17 12/21/17 History Carvedilol [Coreg] 6.25 mg PO BID #60 tablet 06/13/16 12/22/17 12/21/17 Rx Lisinopril [Zestril TAB] 2.5 mg PO QDAY #30 tablet 06/13/16 12/22/17 12/21/17 Rx Digoxin [Lanoxin] 0.125 mg PO QDAY 08/20/16 12/22/17 12/21/17 History Palbociclib [Ibrance] 125 mg PO QDAY 06/26/17 12/22/17 12/20/17 History - Physical exam General appearance: no acute distress Gastrointestinal: normoactive bowel sounds, distended - Brief post op/procedure progress note Date of procedure: 12/22/17 Pre-op diagnosis: ascites Post-op diagnosis: same Procedure: US paracentesis Anesthesia: local Findings: large ascites Surgeon: RAYMUNDO NIETO Estimated blood loss: none Pathology: none Specimen disposition: discarded Condition: stable - Hospital course Hospital course: uneventful - Disposition Condition at discharge: Good Disposition: DC-01 TO HOME OR SELFCARE Short Stay Discharge Plan Follow up with: SOFIE VASQUEZ MD [Primary Care Provider] - 7 Days
--- NOTE | 2017-12-22 09:11 | Ultrasound Report ---
ULTRASOUND PARACENTESIS History: Ascites. Description of procedure: Informed consent was obtained. Sterile technique was utilized. 1% lidocaine for skin anesthesia. Using ultrasound guidance, a 5 Georgian centesis needle was advanced into the left lower quadrant peritoneal space. There was spontaneous return of clear, yellow fluid. 5.1 L of fluid was aspirated and discarded. No complications. Impression: Successful ultrasound guided paracentesis as described.
[2017-12-22] MEDS ORDERED: ALBURX 25% (ALBUMIN) IV PRN (10:00)
[2017-12-22 10:40] VITALS: BP 116/57
== END 2017-12-22 10:55 | disposition home or self-care (01) ==
LOC: CATHLABREC 07:01 → EDSTATUS 07:30 → CATHLABREC 10:55
PROVIDERS: ATTEND Specialist
DX: R18.8 Other ascites (principal); K74.60 Unspecified cirrhosis of liver; Z91.018 Allergy to other foods; Z79.82 Long term (current) use of aspirin; Z79.899 Other long term (current) drug therapy
CPT/HCPCS: 36415; 49083; 85610; 85730; 96365; P9047

== ENCOUNTER 2018-01-19 07:03 | Day surgery (SDC) | payer MEDICARE ==
[2018-01-19 08:09] LABS: INR 1.41 (0.87-1.13)
[2018-01-19 08:10] LABS: Partial Thromboplastin Time 34.6 Sec. (24.2-36.6)
--- NOTE | 2018-01-19 09:20 | Ultrasound Report ---
ULTRASOUND PARACENTESIS History: Ascites. Description of procedure: Informed consent was obtained. Sterile technique was utilized. 1% lidocaine for skin anesthesia. Using ultrasound guidance, a 5 Armenian centesis needle was advanced into the left lower quadrant peritoneal space. There is spontaneous return of clear yellow fluid. 4.7 L of fluid was aspirated and discarded. No complications. Impression: Successful ultrasound guided paracentesis as described.
[2018-01-19] MEDS ORDERED: ALBURX 25% (ALBUMIN) IV PRN (09:25)
--- NOTE | 2018-01-19 09:25 | Short Stay Summary ---
Short Stay Documentation Date of service: 01/19/18 - History Principal diagnosis: ascites H&P: obtained from office - Allergies and Medications Current Medications: Allergies grape Allergy (Verified 07/02/16 10:13) Itching pineapple Allergy (Verified 07/02/16 10:13) Itching Home Medications Medication Instructions Recorded Confirmed Last Taken Type Pravastatin Sodium [Pravastatin] 20 mg PO QHS 08/16/13 01/19/18 01/18/18 History Furosemide [Furosemide ORAL LIQ] 40 mg PO DAILY #30 ml 10/30/14 01/19/18 Rx Potassium Chloride [K-Dur] 20 meq PO QDAY 02/24/15 01/19/18 01/18/18 History Warfarin [Coumadin] 6 mg PO DAILY@1700 02/24/15 01/19/18 4 Days Ago History ~01/15/18 Aspirin [Aspirin TAB] 325 mg PO ONCE 05/14/16 01/19/18 01/18/18 History amLODIPine [Norvasc] 10 mg PO DAILY 05/14/16 01/19/18 01/18/18 History Carvedilol [Coreg] 6.25 mg PO BID #60 tablet 06/13/16 01/19/18 01/18/18 Rx Lisinopril [Zestril TAB] 2.5 mg PO QDAY #30 tablet 06/13/16 01/19/18 01/18/18 Rx Digoxin [Lanoxin] 0.125 mg PO QDAY 08/20/16 01/19/18 01/18/18 History Palbociclib [Ibrance] 125 mg PO QDAY 06/26/17 01/19/18 01/18/18 History - Physical exam General appearance: no acute distress Gastrointestinal: normoactive bowel sounds, distended - Brief post op/procedure progress note Date of procedure: 01/19/18 Pre-op diagnosis: ascites Post-op diagnosis: same Procedure: US paracentesis Anesthesia: local Findings: large ascites Surgeon: RAYMUNDO NIETO Estimated blood loss: none Pathology: none Specimen disposition: discarded Condition: stable - Hospital course Hospital course: uneventful - Disposition Condition at discharge: Good Disposition: DC-01 TO HOME OR SELFCARE Short Stay Discharge Plan Follow up with: SOFIE VASQUEZ MD [Primary Care Provider] - 7 Days
[2018-01-19 10:02] VITALS: BP 114/68
== END 2018-01-19 10:10 | disposition home or self-care (01) ==
LOC: CATHLABREC 07:03 → EDSTATUS 07:30 → CATHLABREC 10:10
PROVIDERS: ATTEND Specialist
DX: R18.8 Other ascites (principal); Z79.01 Long term (current) use of anticoagulants; Z91.018 Allergy to other foods; Z79.82 Long term (current) use of aspirin; Z79.899 Other long term (current) drug therapy
CPT/HCPCS: 36415; 49083; 85610; 85730

== ENCOUNTER 2018-01-22 08:51 | Outpatient (CLI) | payer MEDICARE ==
--- NOTE | 2018-01-22 14:53 | PET Report ---
PET SB TO MT SUBSEQUENT: HISTORY: Restaging of breast cancer. TECHNIQUE: 12.2 millicuries F-18 FDG was administered intravenously. Noncontrast CT images and PET images were obtained from the skull base to the proximal thighs. Fused images were reviewed on a workstation. The patient's blood glucose level measured 102. COMPARISON: 11/07/16. FINDINGS: BRAIN: physiologic FDG uptake in the imaged brain. NECK: physiologic FDG uptake. MEDIASTINUM: There is moderate cardiomegaly and small pericardial effusion. LUNGS: physiologic FDG uptake. PLEURA/PERICARDIUM: Small to medium complex right pleural effusion appear stable. THORACIC LYMPH NODES: physiologic FDG uptake. HEPATOBILIARY: physiologic FDG uptake. 3.3 cm liver hypodensity is unchanged and most consistent with a hemangioma or cyst. Mean liver SUV measures 2.5. PANCREAS: physiologic FDG uptake. SPLEEN: physiologic FDG uptake. ADRENAL GLANDS: physiologic FDG uptake. KIDNEYS/RENAL COLLECTING SYSTEMS: physiologic FDG uptake. BOWEL/MESENTERY: physiologic FDG uptake. Large ascites is noted. PELVIC VISCERA: physiologic FDG uptake. ABDOMINAL/PELVIC LYMPH NODES: physiologic FDG uptake. MUSCULOSKELETAL: physiologic FDG uptake. IMPRESSION: Negative PET/CT. No evidence for disease recurrence or metastasis. Stable findings since 11/07/16.
== END 2018-01-22 08:52 | disposition home or self-care (01) ==
LOC: PET 08:51
PROVIDERS: ATTEND Internal Medicine Hematology & Oncology
DX: C50.911 Malignant neoplasm of unspecified site of right female breast (principal); I51.7 Cardiomegaly; I31.3 Pericardial effusion (noninflammatory); J90 Pleural effusion, not elsewhere classified; R18.8 Other ascites; I50.9 Heart failure, unspecified; I48.91 Unspecified atrial fibrillation; E78.00 Pure hypercholesterolemia, unspecified
CPT/HCPCS: 78815; 82962; A9552

== ENCOUNTER 2018-02-23 07:12 | Day surgery (SDC) | payer MEDICARE ==
[2018-02-23 09:57] LABS: INR 1.26 (0.87-1.13); Partial Thromboplastin Time 29.2 Sec. (24.2-36.6)
--- NOTE | 2018-02-23 11:36 | Ultrasound Report ---
ULTRASOUND PARACENTESIS History: Ascites. Description of procedure: Informed consent was obtained. Sterile technique was utilized. 1% lidocaine for skin anesthesia. Using ultrasound guidance, a 5 Faroese centesis needle was advanced into the left lower quadrant peritoneal space. There was spontaneous return of clear yellow fluid. 5.8 L of fluid was aspirated and discarded. No complications. Impression: Successful ultrasound guided right paracentesis as described.
[2018-02-23] MEDS ORDERED: ALBURX 25% (ALBUMIN) IV PRN (11:47)
--- NOTE | 2018-02-23 11:47 | Short Stay Summary ---
Short Stay Documentation Date of service: 02/23/18 - History Principal diagnosis: ascites H&P: obtained from office - Allergies and Medications Current Medications: Allergies grape Allergy (Verified 07/02/16 10:13) Itching pineapple Allergy (Verified 07/02/16 10:13) Itching Home Medications Medication Instructions Recorded Confirmed Last Taken Type Pravastatin Sodium [Pravastatin] 20 mg PO QHS 08/16/13 02/23/18 02/22/18 History Furosemide [Furosemide ORAL LIQ] 40 mg PO DAILY #30 ml 10/30/14 02/23/18 Rx Potassium Chloride [K-Dur] 20 meq PO QDAY 02/24/15 02/23/18 02/22/18 History Warfarin [Coumadin] 6 mg PO DAILY@1700 02/24/15 02/23/18 02/18/18 History Aspirin [Aspirin TAB] 325 mg PO ONCE 05/14/16 02/23/18 02/18/18 History amLODIPine [Norvasc] 10 mg PO DAILY 05/14/16 02/23/18 02/22/18 History Carvedilol [Coreg] 6.25 mg PO BID #60 tablet 06/13/16 02/23/18 02/22/18 Rx Lisinopril [Zestril TAB] 2.5 mg PO QDAY #30 tablet 06/13/16 02/23/18 02/22/18 Rx Digoxin [Lanoxin] 0.125 mg PO QDAY 08/20/16 02/23/18 02/22/18 History Palbociclib [Ibrance] 125 mg PO QDAY 06/26/17 02/23/18 02/21/18 History - Physical exam General appearance: no acute distress Gastrointestinal: distended - Brief post op/procedure progress note Date of procedure: 02/23/18 Pre-op diagnosis: ascites Post-op diagnosis: same Procedure: US paracentesis Anesthesia: local Findings: moderate to large ascites Surgeon: RAYMUNDO NIETO Estimated blood loss: none Pathology: none Specimen disposition: discarded Condition: stable - Disposition Condition at discharge: Good Disposition: DC-01 TO HOME OR SELFCARE Short Stay Discharge Plan Follow up with: SOFIE VASQUEZ MD [Primary Care Provider] - 7 Days
[2018-02-23 12:54] VITALS: BP 124/62
== END 2018-02-23 13:26 | disposition home or self-care (01) ==
LOC: CATHLABREC 07:12 → EDSTATUS 07:30 → CATHLABREC 13:26
PROVIDERS: ATTEND Specialist
DX: R18.8 Other ascites (principal); Z79.01 Long term (current) use of anticoagulants; Z79.82 Long term (current) use of aspirin; Z79.899 Other long term (current) drug therapy; Z91.018 Allergy to other foods
CPT/HCPCS: 36415; 49083; 85610; 85730; P9047

== ENCOUNTER 2018-03-25 07:10 | Day surgery (SDC) | payer MEDICARE ==
[2018-03-25 08:54] LABS: Partial Thromboplastin Time 32.4 Sec. (24.2-36.6)
[2018-03-25 09:13] LABS: INR 1.56 (0.87-1.13)
[2018-03-25 11:13] VITALS: BP 118/69
--- NOTE | 2018-03-25 13:08 | Ultrasound Report ---
ULTRASOUND PARACENTESIS History: Ascites. Description of procedure: Informed consent was obtained. Sterile technique was utilized. 1% lidocaine for skin anesthesia. Using ultrasound guidance, a 5 Kinyarwanda centesis needle was advanced into the left lower quadrant peritoneal space. There was spontaneous return of slightly cloudy yellow fluid. 5.9 L of fluid was aspirated and discarded. No complications. Impression: Successful ultrasound-guided paracentesis.
--- NOTE | 2018-03-25 13:23 | Short Stay Summary ---
Short Stay Documentation Date of service: 03/25/18 - History Principal diagnosis: ascites Past Medical History: cancer - Allergies and Medications Current Medications: Allergies grape Allergy (Verified 07/02/16 10:13) Itching pineapple Allergy (Verified 07/02/16 10:13) Itching Home Medications Medication Instructions Recorded Confirmed Last Taken Type Pravastatin Sodium [Pravastatin] 20 mg PO QHS 08/16/13 03/25/18 03/24/18 History Furosemide [Furosemide ORAL LIQ] 40 mg PO DAILY #30 ml 10/30/14 03/25/18 Rx Potassium Chloride [K-Dur] 20 meq PO QDAY 02/24/15 03/25/18 03/24/18 History Warfarin [Coumadin] 6 mg PO DAILY@1700 02/24/15 03/25/18 03/20/18 History Aspirin [Aspirin TAB] 325 mg PO ONCE 05/14/16 03/25/18 03/20/18 History amLODIPine [Norvasc] 10 mg PO DAILY 05/14/16 03/25/18 03/24/18 History Carvedilol [Coreg] 6.25 mg PO BID #60 tablet 06/13/16 03/25/18 03/24/18 Rx Lisinopril [Zestril TAB] 2.5 mg PO QDAY #30 tablet 06/13/16 03/25/18 03/24/18 Rx Digoxin [Lanoxin] 0.125 mg PO QDAY 08/20/16 03/25/18 03/24/18 History Palbociclib [Ibrance] 125 mg PO QDAY 06/26/17 03/25/18 03/24/18 History - Physical exam General appearance: no acute distress Gastrointestinal: distended - Brief post op/procedure progress note Date of procedure: 03/25/18 Pre-op diagnosis: ascites Post-op diagnosis: same Procedure: US paracentesis Anesthesia: local Findings: moderate to large ascites Surgeon: RAYMUNDO NIETO Estimated blood loss: none Pathology: none Specimen disposition: discarded Condition: stable Short Stay Discharge Plan Follow up with: SOFIE VASQUEZ MD [Primary Care Provider] - 7 Days
== END 2018-03-25 11:45 ==
LOC: CATHLABREC 07:10 → EDSTATUS 07:30 → CATHLABREC 11:45
PROVIDERS: ATTEND Specialist
DX: R18.8 Other ascites (principal); Z79.01 Long term (current) use of anticoagulants; Z91.018 Allergy to other foods; Z79.899 Other long term (current) drug therapy
CPT/HCPCS: 36415; 49083; 85610; 85730

== ENCOUNTER 2018-04-24 07:13 | Day surgery (SDC) | payer MEDICARE ==
[2018-04-24 09:23] LABS: INR 1.16 (0.87-1.13)
[2018-04-24 09:24] LABS: Partial Thromboplastin Time 22.3 Sec. (24.2-36.6)
--- NOTE | 2018-04-24 10:59 | Procedure Note ---
Date of procedure: 04/24/18 Pre-op diagnosis: ascites Post-op diagnosis: same Procedure: paracentesis Findings: straw colored fluid Anesthesia: local Surgeon: KIKI CAMILO Estimated blood loss: none Pathology: none Specimen disposition: discarded Condition: stable Disposition: observation
--- NOTE | 2018-04-24 11:00 | History and Physical Report ---
History of Present Illness Date of examination: 04/24/18 Chief complaint: distended abdomen History of present illness: chronic Medications and Allergies Allergies Allergy/AdvReac Type Severity Reaction Status Date / Time grape Allergy Itching Verified 07/02/16 10:13 pineapple Allergy Itching Verified 07/02/16 10:13 Home Medications Medication Instructions Recorded Confirmed Last Taken Type Pravastatin Sodium [Pravastatin] 20 mg PO QHS 08/16/13 04/24/18 04/23/18 History 20 mg Furosemide [Furosemide ORAL LIQ] 40 mg PO DAILY #30 ml 10/30/14 04/24/18 Rx 40 mg Potassium Chloride [K-Dur] 20 meq PO QDAY 02/24/15 04/24/18 04/23/18 History Warfarin [Coumadin] 6 mg PO DAILY@1700 02/24/15 04/24/18 04/19/18 History 6mg Aspirin [Aspirin TAB] 325 mg PO ONCE 05/14/16 04/24/18 04/19/18 History 325 mg amLODIPine [Norvasc] 10 mg PO DAILY 05/14/16 04/24/18 04/23/18 History 10mg Carvedilol [Coreg] 6.25 mg PO BID #60 tablet 06/13/16 04/24/18 04/23/18 Rx 6.25 mg Lisinopril [Zestril TAB] 2.5 mg PO QDAY #30 tablet 06/13/16 04/24/18 04/23/18 Rx 2.5 mg Digoxin [Lanoxin] 0.125 mg PO QDAY 08/20/16 04/24/18 04/23/18 History 0.125 mg Palbociclib [Ibrance] 125 mg PO QDAY 06/26/17 04/24/18 04/23/18 History Exam Vital Signs Temp Pulse Resp BP Pulse Ox 97.9 F 60 16 118/66 93 04/24/18 09:13 04/24/18 09:13 04/24/18 09:13 04/24/18 09:13 04/24/18 09:13
--- NOTE | 2018-04-24 11:19 | Ultrasound Report ---
Ultrasound guided paracentesis: Ascites. Imaging of the abdomen demonstrated a moderate volume of echolucent fluid in the abdomen. An appropriate approach site was identified in the left lower quadrant. The skin was cleansed and draped. 1% lidocaine used for local anesthesia. A small skin mansoor was made through which a 5 Mongolian Yueh catheter was positioned into a fluid pocket. A total of 3.7 L of straw-colored fluid was successfully removed and discarded. No patient complications identified.
[2018-04-24 14:20] VITALS: BP 101/56
== END 2018-04-24 13:10 | disposition home or self-care (01) ==
LOC: CATHLABREC 07:13 → EDSTATUS 07:30 → CATHLABREC 13:10
PROVIDERS: ATTEND Specialist
DX: R18.8 Other ascites (principal); Z79.01 Long term (current) use of anticoagulants
CPT/HCPCS: 36415; 49083; 85610; 85730

== ENCOUNTER 2018-05-14 07:43 | Day surgery (SDC) | payer MEDICARE ==
[2018-05-14 09:29] LABS: INR 1.31 (0.87-1.13)
[2018-05-14 09:30] LABS: Partial Thromboplastin Time 30.6 Sec. (24.2-36.6)
[2018-05-14] MEDS ORDERED: ALBURX 25% (ALBUMIN) IV PRN (12:29)
--- NOTE | 2018-05-14 12:29 | Short Stay Summary ---
Short Stay Documentation Date of service: 05/14/18 - History Principal diagnosis: ascites H&P: obtained from office - Allergies and Medications Current Medications: Allergies grape Allergy (Verified 07/02/16 10:13) Itching pineapple Allergy (Verified 07/02/16 10:13) Itching Home Medications Medication Instructions Recorded Confirmed Last Taken Type Pravastatin Sodium [Pravastatin] 20 mg PO QHS 08/16/13 05/14/18 05/13/18 History 20mg Furosemide [Furosemide ORAL LIQ] 40 mg PO DAILY #30 ml 10/30/14 05/14/18 Rx 40mg Potassium Chloride [K-Dur] 20 meq PO QDAY 02/24/15 05/14/18 05/13/18 History 20meq Warfarin [Coumadin] 6 mg PO DAILY@1700 02/24/15 05/14/18 05/10/18 History 6mg Aspirin [Aspirin TAB] 325 mg PO ONCE 05/14/16 05/14/18 05/10/18 History 325mg amLODIPine [Norvasc] 10 mg PO DAILY 05/14/16 05/14/18 05/13/18 History 10mg Carvedilol [Coreg] 6.25 mg PO BID #60 tablet 06/13/16 05/14/18 05/13/18 Rx 6.25mg Lisinopril [Zestril TAB] 2.5 mg PO QDAY #30 tablet 06/13/16 05/14/18 05/13/18 Rx 2.5mg Digoxin [Lanoxin] 0.125 mg PO QDAY 08/20/16 05/14/18 05/13/18 History 0.125mg Palbociclib [Ibrance] 125 mg PO QDAY 06/26/17 05/14/18 05/13/18 History 125mg - Physical exam General appearance: no acute distress Gastrointestinal: distended - Brief post op/procedure progress note Date of procedure: 05/14/18 Pre-op diagnosis: ascites Post-op diagnosis: same Procedure: US paracentesis Surgeon: RAYMUNDO NIETO Estimated blood loss: none Pathology: none Specimen disposition: discarded Condition: stable - Disposition Condition at discharge: Good Disposition: DC-01 TO HOME OR SELFCARE Short Stay Discharge Plan Follow up with: SOFIE VASQUEZ MD [Primary Care Provider] - 7 Days
[2018-05-14 13:20] VITALS: BP 104/55
--- NOTE | 2018-05-14 15:00 | Ultrasound Report ---
ULTRASOUND PARACENTESIS History: Ascites. Description of procedure: Informed consent was obtained. Sterile technique was utilized. 1% lidocaine for skin anesthesia. Using ultrasound guidance, a 5 Telugu centesis needle was advanced into the left lower quadrant peritoneal space. There was spontaneous return of clear yellow fluid. 4.2 L of fluid was aspirated and discarded. No complications. Impression: Successful ultrasound-guided paracentesis.
== END 2018-05-14 13:30 | disposition home or self-care (01) ==
LOC: CATHLABREC 07:43 → EDSTATUS 05-25 07:30
PROVIDERS: ATTEND Specialist
DX: R18.8 Other ascites (principal); E78.5 Hyperlipidemia, unspecified; I11.0 Hypertensive heart disease with heart failure; I50.23 Acute on chronic systolic (congestive) heart failure; I48.91 Unspecified atrial fibrillation; Z79.82 Long term (current) use of aspirin; Z79.01 Long term (current) use of anticoagulants; Z91.018 Allergy to other foods; Z85.3 Personal history of malignant neoplasm of breast
CPT/HCPCS: 36415; 49083; 85610; 85730

== ENCOUNTER 2018-06-15 07:37 | Day surgery (SDC) | payer MEDICARE ==
[2018-06-15 11:51] LABS: INR 1.68 (0.87-1.13); Partial Thromboplastin Time 32.3 Sec. (24.2-36.6)
[2018-06-15] MEDS ORDERED: ALBURX 25% (ALBUMIN) IV PRN (12:22)
--- NOTE | 2018-06-15 12:22 | Short Stay Summary ---
Short Stay Documentation Date of service: 06/15/18 - History Principal diagnosis: ascites H&P: obtained from office Past Medical History: ESRD - Allergies and Medications Current Medications: Allergies grape Allergy (Verified 07/02/16 10:13) Itching pineapple Allergy (Verified 07/02/16 10:13) Itching Home Medications Medication Instructions Recorded Confirmed Last Taken Type Pravastatin Sodium [Pravastatin] 20 mg PO QHS 08/16/13 06/15/18 06/14/18 History 10 mg Furosemide [Furosemide ORAL LIQ] 40 mg PO DAILY #30 ml 10/30/14 06/15/18 Rx 40 mg Potassium Chloride [K-Dur] 20 meq PO QDAY 02/24/15 06/15/18 06/14/18 History 20 meq Warfarin [Coumadin] 6 mg PO DAILY@1700 02/24/15 06/15/18 06/09/18 History 6mg Aspirin [Aspirin TAB] 325 mg PO ONCE 05/14/16 06/15/18 06/09/18 History 325 mg amLODIPine [Norvasc] 10 mg PO DAILY 05/14/16 06/15/18 06/14/18 History 10 mg Carvedilol [Coreg] 6.25 mg PO BID #60 tablet 06/13/16 06/15/18 06/14/18 Rx 6.25 Lisinopril [Zestril TAB] 2.5 mg PO QDAY #30 tablet 06/13/16 06/15/18 06/14/18 Rx 2.5 Digoxin [Lanoxin] 0.125 mg PO QDAY 08/20/16 06/15/18 06/14/18 History 0.125 mg Palbociclib [Ibrance] 125 mg PO QDAY 06/26/17 06/15/18 06/14/18 History 125 mg - Physical exam General appearance: no acute distress Gastrointestinal: distended - Brief post op/procedure progress note Date of procedure: 06/15/18 Pre-op diagnosis: ascites Post-op diagnosis: same Procedure: US paracentesis Anesthesia: local Findings: moderate ascites Surgeon: RAYMUNDO NIETO Estimated blood loss: none Pathology: none Specimen disposition: discarded Condition: stable - Disposition Condition at discharge: Good Disposition: DC-01 TO HOME OR SELFCARE Short Stay Discharge Plan Follow up with: SOFIE VASQUEZ MD [Primary Care Provider] - 7 Days
[2018-06-15 14:36] VITALS: BP 106/62
--- NOTE | 2018-06-15 14:48 | Ultrasound Report ---
ULTRASOUND PARACENTESIS History: Ascites Description of procedure: Informed consent was obtained. Sterile technique was utilized. 1% lidocaine for skin anesthesia. Using ultrasound guidance, a 5 South Sudanese centesis needle was advanced into the left lower quadrant peritoneal space. There was spontaneous return of clear yellow fluid. 5.5 L of fluid was aspirated and discarded. No complications. Impression: Successful ultrasound-guided paracentesis.
== END 2018-06-15 17:30 | disposition home or self-care (01) ==
LOC: US 07:37
PROVIDERS: ATTEND Specialist
DX: R18.8 Other ascites (principal); I13.2 Hypertensive heart and chronic kidney disease with heart failure and with stage 5 chronic kidney disease, or end stage renal disease; I50.23 Acute on chronic systolic (congestive) heart failure; N18.6 End stage renal disease; I48.91 Unspecified atrial fibrillation; E78.00 Pure hypercholesterolemia, unspecified; J18.9 Pneumonia, unspecified organism; E78.5 Hyperlipidemia, unspecified; D64.9 Anemia, unspecified; Z79.899 Other long term (current) drug therapy; Z79.01 Long term (current) use of anticoagulants; Z88.8 Allergy status to other drugs, medicaments and biological substances; Z98.42 Cataract extraction status, left eye; Z98.41 Cataract extraction status, right eye; Z85.3 Personal history of malignant neoplasm of breast; Z82.49 Family history of ischemic heart disease and other diseases of the circulatory system
CPT/HCPCS: 36415; 49083; 85610; 85730; 96365; P9047

== ENCOUNTER 2018-07-15 07:45 | Day surgery (SDC) | payer MEDICARE ==
[2018-07-15 09:09] LABS: INR 1.33 (0.87-1.13)
[2018-07-15] MEDS ORDERED: ALBURX 25% (ALBUMIN) IV PRN (10:46)
--- NOTE | 2018-07-15 10:46 | Short Stay Summary ---
Short Stay Documentation Date of service: 07/15/18 - History Principal diagnosis: ascites H&P: obtained from office - Allergies and Medications Current Medications: Allergies grape Allergy (Verified 07/02/16 10:13) Itching pineapple Allergy (Verified 07/02/16 10:13) Itching Home Medications Medication Instructions Recorded Confirmed Last Taken Type Pravastatin Sodium [Pravastatin] 20 mg PO QHS 08/16/13 07/15/18 07/14/18 History Furosemide [Furosemide ORAL LIQ] 40 mg PO DAILY #30 ml 10/30/14 07/15/18 Rx Potassium Chloride [K-Dur] 20 meq PO QDAY 02/24/15 07/15/18 07/14/18 History Warfarin [Coumadin] 6 mg PO DAILY@1700 02/24/15 07/15/18 07/10/18 History Aspirin [Aspirin TAB] 325 mg PO ONCE 05/14/16 07/15/18 07/10/18 History amLODIPine [Norvasc] 10 mg PO DAILY 05/14/16 07/15/18 07/14/18 History Carvedilol [Coreg] 6.25 mg PO BID #60 tablet 06/13/16 07/15/18 07/14/18 Rx Lisinopril [Zestril TAB] 2.5 mg PO QDAY #30 tablet 06/13/16 07/15/18 07/14/18 Rx Digoxin [Lanoxin] 0.125 mg PO QDAY 08/20/16 07/15/18 07/14/18 History Palbociclib [Ibrance] 125 mg PO QDAY 06/26/17 07/15/18 07/14/18 History - Physical exam General appearance: no acute distress Gastrointestinal: distended - Brief post op/procedure progress note Date of procedure: 07/15/18 Pre-op diagnosis: ascites Post-op diagnosis: same Procedure: US paracentesis Anesthesia: local Findings: moderate ascites Surgeon: RAYMUNDO INETO Estimated blood loss: none Pathology: none Specimen disposition: discarded Condition: stable - Disposition Condition at discharge: Good Disposition: DC-01 TO HOME OR SELFCARE Short Stay Discharge Plan Follow up with: SOFIE VASQUEZ MD [Primary Care Provider] - 7 Days
--- NOTE | 2018-07-15 11:27 | Ultrasound Report ---
ULTRASOUND PARACENTESIS History: Ascites. Description of procedure: Informed consent was obtained. Sterile technique was utilized. 1% lidocaine for skin anesthesia. Using ultrasound guidance, a 5 Icelandic centesis needle was advanced into the left lower quadrant peritoneal space. There was spontaneous return of clear yellow fluid. 4.9 L of fluid was aspirated and discarded. No complications. Impression: Successful ultrasound-guided paracentesis.
[2018-07-15 11:44] VITALS: BP 113/58
== END 2018-07-15 12:00 | disposition home or self-care (01) ==
LOC: CATHLABREC 07:45
PROVIDERS: ATTEND Specialist
DX: R18.8 Other ascites (principal); E78.00 Pure hypercholesterolemia, unspecified; I48.91 Unspecified atrial fibrillation; I11.0 Hypertensive heart disease with heart failure; I50.9 Heart failure, unspecified; Z79.82 Long term (current) use of aspirin; Z79.899 Other long term (current) drug therapy; Z79.01 Long term (current) use of anticoagulants; Z91.018 Allergy to other foods; Z90.11 Acquired absence of right breast and nipple; Z98.891 History of uterine scar from previous surgery; Z85.3 Personal history of malignant neoplasm of breast; Z86.718 Personal history of other venous thrombosis and embolism; Z98.890 Other specified postprocedural states; Z80.1 Family history of malignant neoplasm of trachea, bronchus and lung; Z80.9 Family history of malignant neoplasm, unspecified; Z82.49 Family history of ischemic heart disease and other diseases of the circulatory system
CPT/HCPCS: 36415; 49083; 85610; 85730

== ENCOUNTER 2018-11-13 07:38 | Day surgery (SDC) | payer MEDICARE ==
[2018-11-13 10:07] LABS: INR 1.26 (0.87-1.13)
[2018-11-13 10:08] LABS: Partial Thromboplastin Time 29.1 Sec. (24.2-36.6)
[2018-11-13] MEDS ORDERED: XYLOCAINE 1% 20 mL ONE (10:26)
[2018-11-13] MEDS ORDERED: ALBURX 25% (ALBUMIN) IV PRN (11:16)
--- NOTE | 2018-11-13 11:16 | Short Stay Summary ---
Short Stay Documentation Date of service: 11/13/18 - History Principal diagnosis: ascites H&P: obtained from office - Allergies and Medications Current Medications: Allergies grape Allergy (Verified 07/02/16 10:13) Itching pineapple Allergy (Verified 07/02/16 10:13) Itching Home Medications Medication Instructions Recorded Confirmed Last Taken Type Pravastatin Sodium [Pravastatin] 20 mg PO QHS 08/16/13 10/13/18 10/12/18 History 1 tab Furosemide [Furosemide ORAL LIQ] 40 mg PO DAILY #30 ml 10/30/14 10/13/18 10/12/18 Rx 1 tab Potassium Chloride [K-Dur] 20 meq PO QDAY 02/24/15 10/13/18 10/12/18 History 1 tab Warfarin [Coumadin] 6 mg PO DAILY@1700 02/24/15 10/13/18 10/09/18 History 1 tab Aspirin [Aspirin TAB] 325 mg PO ONCE 05/14/16 10/13/18 10/09/18 History 1 tab amLODIPine [Norvasc] 10 mg PO DAILY 05/14/16 10/13/18 10/12/18 History 1Tab Carvedilol [Coreg] 6.25 mg PO BID #60 tablet 06/13/16 10/13/18 10/12/18 Rx 1 tab Lisinopril [Zestril TAB] 2.5 mg PO QDAY #30 tablet 06/13/16 10/13/18 10/12/18 Rx 1 tab Digoxin [Lanoxin] 0.125 mg PO QDAY 08/20/16 10/13/18 10/12/18 History 1 tab Palbociclib [Ibrance] 125 mg PO QDAY 06/26/17 10/13/18 10/12/18 History 1 tab - Physical exam General appearance: no acute distress Gastrointestinal: distended - Brief post op/procedure progress note Date of procedure: 11/13/18 Pre-op diagnosis: ascites Post-op diagnosis: same Procedure: US paracentesis Anesthesia: local Surgeon: RAYMUNDO NIETO Estimated blood loss: none Pathology: none Specimen disposition: discarded Condition: stable - Disposition Condition at discharge: Good Disposition: DC-01 TO HOME OR SELFCARE Short Stay Discharge Plan Follow up with: PRIMARY CARE, [Primary Care Provider] - 7 Days
--- NOTE | 2018-11-13 11:42 | Ultrasound Report ---
ULTRASOUND PARACENTESIS HISTORY: Ascites. DESCRIPTION OF PROCEDURE: A time out was performed. Informed consent was obtained. Sterile technique was utilized. Using ultrasound guidance, a 5 Azeri centesis needle was advanced into the peritoneal space. There was spontaneous return of clear yellow fluid. 3.9 L of fluid was drained. No complications. IMPRESSION: Successful ultrasound-guided paracentesis.
[2018-11-13 12:02] VITALS: BP 120/58
== END 2018-11-13 12:20 | disposition home or self-care (01) ==
LOC: CATHLABREC 07:38
PROVIDERS: ATTEND Specialist
DX: R18.8 Other ascites (principal); I48.91 Unspecified atrial fibrillation; I11.0 Hypertensive heart disease with heart failure; I50.9 Heart failure, unspecified; Z79.899 Other long term (current) drug therapy; Z79.01 Long term (current) use of anticoagulants; Z79.82 Long term (current) use of aspirin; Z91.018 Allergy to other foods; Z90.11 Acquired absence of right breast and nipple; Z85.3 Personal history of malignant neoplasm of breast; Z98.891 History of uterine scar from previous surgery; Z98.890 Other specified postprocedural states; Z80.1 Family history of malignant neoplasm of trachea, bronchus and lung; Z82.49 Family history of ischemic heart disease and other diseases of the circulatory system
CPT/HCPCS: 36415; 49083; 85610; 85730

== ENCOUNTER 2018-12-10 07:43 | Outpatient (CLI) | payer MEDICARE ==
--- NOTE | 2018-12-10 15:51 | PET Report ---
PET/CT:12/10/18 07:43:00 CLINICAL: Breast cancer restaging. RADIOPHARMACEUTICAL: 14.213mCi F18-FDG. COMPARISON: 01/22/18 PET/CT TECHNIQUE- Following intravenous injection of F-18 FDG and an approximately 60 minute uptake period, CT and PET images from the mid skull to the upper thighs were acquired with the patient in the fasted state. No contrast was administered. The CT protocol used for this PET CT study is designed for attenuation correction and anatomic localization of PET abnormalities. This k9 handler CT is not desired to produce and cannot replace, [id number] diagnostic CT scans with specific imaging protocols for different body parts and indications. Plasma glucose at the time of this test: 108g/dl. The standardized uptake values (SUV) are normalized to patient body weight and indicate the highest activity concentration (SUV max) in a given disease site. FINDINGS: Brain--Physiologic FDG uptake in the visualized regions of the brain. Neck--Physiologic FDG uptake in mucosal structures and muscles of the neck. No mass or lymphadenopathy. Chest--Physiologic FDG uptake in mediastinal blood pool and myocardium. Physiologic FDG uptake in bilateral intercostal muscles and within the diaphragm. Stable mediastinal fluid and cardiomegaly. Minimal pericardial effusion. Lungs--No abnormal uptake. No pulmonary nodule or mass. Pleura/pericardium--No abnormal uptake. Stable loculated right pleural effusion. Thoracic nodes--No abnormal uptake. Hepatobiliary--No abnormal uptake. Liver background SUV mean, as a reference for comparing FDG studies, is 2.0 compared to 2.7 on the last exam. The previously identified left hepatic hypodense mass is slightly smaller and measures 2.6 x 2.6 cm. It has developed new peripheral calcifications. No other liver mass. Spleen--No abnormal uptake. Pancreas--No abnormal uptake. Adrenal Glands--No abnormal uptake. Kidneys/Ureters/Bladder--No abnormal uptake. Abdominopelvic Nodes--No abnormal uptake. Bowel/Peritoneum/Mesentery--No abnormal uptake. Pelvic organs--No abnormal uptake. Bones/Soft Tissues--No abnormal uptake and no suspicious bone lesions. Other findings: Large volume ascites is slightly increased. IMPRESSION- Negative study with no FDG avid disease. Stable loculated right pleural effusion of uncertain etiology. Slightly increased large volume ascites of uncertain etiology. No evidence of pulmonary, hepatic, jane or skeletal metastasis.
== END 2018-12-10 07:44 | disposition home or self-care (01) ==
LOC: PET 07:43
PROVIDERS: ATTEND Internal Medicine Hematology & Oncology
DX: C50.911 Malignant neoplasm of unspecified site of right female breast (principal); J90 Pleural effusion, not elsewhere classified; E78.5 Hyperlipidemia, unspecified; I11.0 Hypertensive heart disease with heart failure; I50.23 Acute on chronic systolic (congestive) heart failure; E78.00 Pure hypercholesterolemia, unspecified; Z90.12 Acquired absence of left breast and nipple
CPT/HCPCS: 78815; 82962; A9552

== ENCOUNTER 2018-12-14 07:44 | Day surgery (SDC) | payer MEDICARE ==
[2018-12-14 09:25] LABS: INR 1.21 (0.87-1.13)
[2018-12-14 09:26] LABS: Partial Thromboplastin Time 29.2 Sec. (24.2-36.6)
[2018-12-14] MEDS ORDERED: XYLOCAINE 1% 20 mL ONE (10:11)
[2018-12-14] MEDS ORDERED: ALBURX 25% (ALBUMIN) IV PRN (11:17)
--- NOTE | 2018-12-14 11:17 | Short Stay Summary ---
Short Stay Documentation Date of service: 12/14/18 Narrative H&P: ascites - History Principal diagnosis: ascites - Allergies and Medications Current Medications: Allergies grape Allergy (Verified 07/02/16 10:13) Itching pineapple Allergy (Verified 07/02/16 10:13) Itching Home Medications Medication Instructions Recorded Confirmed Last Taken Type Pravastatin Sodium [Pravastatin] 20 mg PO QHS 08/16/13 12/14/18 12/13/18 History 1 tab Furosemide [Furosemide ORAL LIQ] 40 mg PO DAILY #30 ml 10/30/14 12/14/18 12/13/18 Rx 1 tab Potassium Chloride [K-Dur] 20 meq PO QDAY 02/24/15 12/14/18 12/13/18 History 1 tab Warfarin [Coumadin] 6 mg PO DAILY@1700 02/24/15 12/14/18 12/11/18 History 1 tab Aspirin [Aspirin TAB] 325 mg PO ONCE 05/14/16 12/14/18 12/11/18 History 1 tab amLODIPine [Norvasc] 10 mg PO DAILY 05/14/16 12/14/18 12/13/18 History 1 tab Carvedilol [Coreg] 6.25 mg PO BID #60 tablet 06/13/16 12/14/18 12/13/18 Rx 1 tab Lisinopril [Zestril TAB] 2.5 mg PO QDAY #30 tablet 06/13/16 12/14/18 12/13/18 Rx 1 tab Digoxin [Lanoxin] 0.125 mg PO QDAY 08/20/16 12/14/18 12/13/18 History 1 tab Palbociclib [Ibrance] 125 mg PO QDAY 06/26/17 12/14/18 12/13/18 History 1 tab - Physical exam General appearance: no acute distress Gastrointestinal: distended - Brief post op/procedure progress note Date of procedure: 12/14/18 Pre-op diagnosis: ascites Post-op diagnosis: same Procedure: US paracentesis Anesthesia: local Findings: moderate ascites Surgeon: RAYMUNDO NIETO Estimated blood loss: none Pathology: none Specimen disposition: discarded Condition: stable - Disposition Condition at discharge: Good Disposition: DC-01 TO HOME OR SELFCARE Short Stay Discharge Plan Follow up with: DEEDEE BLANCO MD [Primary Care Provider] - 7 Days
[2018-12-14 12:18] VITALS: BP 130/68
--- NOTE | 2018-12-14 12:19 | Ultrasound Report ---
ULTRASOUND PARACENTESIS HISTORY: Ascites. DESCRIPTION OF PROCEDURE: A time out was performed. Informed consent was obtained. Sterile technique was utilized. Using ultrasound guidance, a 5 Icelandic centesis needle was advanced into the peritoneal space. There was spontaneous return of clear yellow fluid. 2.3 L of fluid was drained. No complications. IMPRESSION: Successful ultrasound-guided paracentesis.
== END 2018-12-14 13:00 | disposition home or self-care (01) ==
LOC: CATHLABREC 07:44 → EDSTATUS 09:00 → CATHLABREC 13:00
PROVIDERS: ATTEND Specialist
DX: R18.8 Other ascites (principal); I11.0 Hypertensive heart disease with heart failure; I50.23 Acute on chronic systolic (congestive) heart failure; I48.91 Unspecified atrial fibrillation; D64.9 Anemia, unspecified; H40.9 Unspecified glaucoma; E78.00 Pure hypercholesterolemia, unspecified; Z85.3 Personal history of malignant neoplasm of breast; Z79.01 Long term (current) use of anticoagulants; Z79.82 Long term (current) use of aspirin; Z79.899 Other long term (current) drug therapy; Z91.018 Allergy to other foods; Z98.49 Cataract extraction status, unspecified eye; Z90.11 Acquired absence of right breast and nipple; Z98.891 History of uterine scar from previous surgery; Z98.890 Other specified postprocedural states; Z80.1 Family history of malignant neoplasm of trachea, bronchus and lung; Z82.49 Family history of ischemic heart disease and other diseases of the circulatory system
CPT/HCPCS: 36415; 49083; 85610; 85730

== ENCOUNTER 2019-01-11 07:52 | Day surgery (SDC) | payer MEDICARE ==
[2019-01-11 09:23] LABS: INR 1.54 (0.87-1.13)
--- NOTE | 2019-01-11 10:37 | Short Stay Summary ---
Short Stay Documentation Date of service: 01/11/19 - History Principal diagnosis: ascites Past Medical History: renal failure - Allergies and Medications Current Medications: Allergies grape Allergy (Verified 07/02/16 10:13) Itching pineapple Allergy (Verified 07/02/16 10:13) Itching Home Medications Medication Instructions Recorded Confirmed Last Taken Type Pravastatin Sodium [Pravastatin] 20 mg PO QHS 08/16/13 01/11/19 01/10/19 History 20mg Furosemide [Furosemide ORAL LIQ] 40 mg PO DAILY #30 ml 10/30/14 01/11/19 01/10/19 Rx 40mg Potassium Chloride [K-Dur] 20 meq PO QDAY 02/24/15 01/11/19 01/10/19 History 20meq Warfarin [Coumadin] 6 mg PO DAILY@1700 02/24/15 01/11/19 01/07/19 History 6mg Aspirin [Aspirin TAB] 325 mg PO ONCE 05/14/16 01/11/19 01/10/19 History 325mg amLODIPine [Norvasc] 10 mg PO DAILY 05/14/16 01/11/19 01/10/19 History 10mg Carvedilol [Coreg] 6.25 mg PO BID #60 tablet 06/13/16 01/11/19 01/10/19 Rx 6.25mg Lisinopril [Zestril TAB] 2.5 mg PO QDAY #30 tablet 06/13/16 01/11/19 01/10/19 Rx 2.5mg Digoxin [Lanoxin] 0.125 mg PO QDAY 08/20/16 01/11/19 01/10/19 History 0.125mg Palbociclib [Ibrance] 125 mg PO QDAY 06/26/17 01/11/19 01/10/19 History 125mg - Physical exam General appearance: no acute distress Gastrointestinal: distended - Brief post op/procedure progress note Date of procedure: 01/11/19 Pre-op diagnosis: ascites Post-op diagnosis: same Procedure: US paracentesis Anesthesia: local Findings: moderate ascites Surgeon: RAYMUNDO NIETO Estimated blood loss: none Pathology: none Specimen disposition: discarded Condition: stable - Hospital course Hospital course: uneventful - Disposition Condition at discharge: Good Disposition: DC-01 TO HOME OR SELFCARE Short Stay Discharge Plan Follow up with: DEEDEE BLANCO MD [Primary Care Provider] - 7 Days
[2019-01-11] MEDS ORDERED: ALBURX 25% (ALBUMIN) IV PRN (10:38)
--- NOTE | 2019-01-11 11:32 | Ultrasound Report ---
ULTRASOUND PARACENTESIS HISTORY: Ascites. DESCRIPTION OF PROCEDURE: A time out was performed. Informed consent was obtained. Sterile technique was utilized. Using ultrasound guidance, a 5 Hungarian centesis needle was advanced into the peritoneal space. There was spontaneous return of clear yellow fluid. 3.9 L of fluid was drained. No complications. IMPRESSION: Successful ultrasound-guided paracentesis.
[2019-01-11 12:01] VITALS: BP 119/70
== END 2019-01-11 12:15 | disposition home or self-care (01) ==
LOC: CATHLABREC 07:52
PROVIDERS: ATTEND Specialist
DX: R18.8 Other ascites (principal); I11.0 Hypertensive heart disease with heart failure; D64.9 Anemia, unspecified; I50.23 Acute on chronic systolic (congestive) heart failure; H40.9 Unspecified glaucoma; I48.91 Unspecified atrial fibrillation; E78.00 Pure hypercholesterolemia, unspecified; Z90.11 Acquired absence of right breast and nipple; Z98.891 History of uterine scar from previous surgery; Z91.018 Allergy to other foods; Z79.899 Other long term (current) drug therapy; Z79.01 Long term (current) use of anticoagulants; Z79.82 Long term (current) use of aspirin; Z85.3 Personal history of malignant neoplasm of breast; Z98.49 Cataract extraction status, unspecified eye; Z80.1 Family history of malignant neoplasm of trachea, bronchus and lung; Z98.890 Other specified postprocedural states; Z82.49 Family history of ischemic heart disease and other diseases of the circulatory system
CPT/HCPCS: 36415; 49083; 85610

== ENCOUNTER 2019-02-11 07:35 | Day surgery (SDC) | payer MEDICARE ==
[2019-02-11 08:54] LABS: INR 1.33 (0.87-1.13); Partial Thromboplastin Time 30.1 Sec. (24.2-36.6)
[2019-02-11] MEDS ORDERED: XYLOCAINE 1% 20 mL ONE (09:16)
--- NOTE | 2019-02-11 09:34 | Short Stay Summary ---
Short Stay Documentation Date of service: 02/11/19 Narrative H&P: ascites - History Principal diagnosis: ascites Past Medical History: renal failure - Allergies and Medications Current Medications: Allergies grape Allergy (Verified 07/02/16 10:13) Itching pineapple Allergy (Verified 07/02/16 10:13) Itching Home Medications Medication Instructions Recorded Confirmed Last Taken Type Pravastatin Sodium [Pravastatin] 20 mg PO QHS 08/16/13 02/11/19 02/10/19 History Furosemide [Furosemide ORAL LIQ] 40 mg PO DAILY #30 ml 10/30/14 02/11/19 02/10/19 Rx Potassium Chloride [K-Dur] 20 meq PO QDAY 02/24/15 02/11/19 02/10/19 History Warfarin [Coumadin] 6 mg PO DAILY@1700 02/24/15 02/11/19 02/06/19 History Aspirin [Aspirin TAB] 325 mg PO ONCE 05/14/16 02/11/19 02/06/19 History amLODIPine [Norvasc] 10 mg PO DAILY 05/14/16 02/11/19 02/10/19 History Carvedilol [Coreg] 6.25 mg PO BID #60 tablet 06/13/16 02/11/19 02/10/19 Rx Lisinopril [Zestril TAB] 2.5 mg PO QDAY #30 tablet 06/13/16 02/11/19 02/10/19 Rx Digoxin [Lanoxin] 0.125 mg PO QDAY 08/20/16 02/11/19 02/10/19 History Palbociclib [Ibrance] 125 mg PO QDAY 06/26/17 02/11/19 02/10/19 History - Physical exam General appearance: no acute distress Gastrointestinal: distended - Brief post op/procedure progress note Date of procedure: 02/11/19 Pre-op diagnosis: ascites Post-op diagnosis: same Procedure: US paracentesis Anesthesia: local Findings: moderate ascites Surgeon: RAYMUNDO NIETO Estimated blood loss: none Pathology: none Specimen disposition: discarded Condition: stable - Hospital course Hospital course: uneventful - Disposition Condition at discharge: Good Disposition: DC-01 TO HOME OR SELFCARE Short Stay Discharge Plan Follow up with: DEEDEE BLANCO MD [Primary Care Provider] - 7 Days
[2019-02-11] MEDS ORDERED: ALBURX 25% (ALBUMIN) IV PRN (10:00)
--- NOTE | 2019-02-11 10:41 | Ultrasound Report ---
ULTRASOUND PARACENTESIS HISTORY: Ascites. DESCRIPTION OF PROCEDURE: A time out was performed. Informed consent was obtained. Sterile technique was utilized. Using ultrasound guidance, a 5 Chinese centesis needle was advanced into the peritoneal space. There was spontaneous return of clear yellow fluid. 3.3 L of fluid was drained. 120 cc of fluid was sent to laboratory for analysis. No complications. IMPRESSION: Successful ultrasound-guided paracentesis.
[2019-02-11 14:54] VITALS: BP 131/61
== END 2019-02-11 11:20 | disposition home or self-care (01) ==
LOC: CATHLABREC 07:35
PROVIDERS: ATTEND Specialist
DX: R18.8 Other ascites (principal); I48.91 Unspecified atrial fibrillation; I11.0 Hypertensive heart disease with heart failure; I50.23 Acute on chronic systolic (congestive) heart failure; D64.9 Anemia, unspecified; E78.00 Pure hypercholesterolemia, unspecified; J90 Pleural effusion, not elsewhere classified; Z90.11 Acquired absence of right breast and nipple; Z98.891 History of uterine scar from previous surgery; Z98.890 Other specified postprocedural states; Z86.718 Personal history of other venous thrombosis and embolism; Z80.1 Family history of malignant neoplasm of trachea, bronchus and lung; Z91.018 Allergy to other foods; Z79.01 Long term (current) use of anticoagulants; Z79.82 Long term (current) use of aspirin; Z98.49 Cataract extraction status, unspecified eye; Z79.899 Other long term (current) drug therapy; Z85.3 Personal history of malignant neoplasm of breast; Z82.49 Family history of ischemic heart disease and other diseases of the circulatory system; Z88.8 Allergy status to other drugs, medicaments and biological substances
CPT/HCPCS: 36415; 49083; 85610; 85730

== ENCOUNTER 2019-03-16 07:43 | Day surgery (SDC) | payer MEDICARE ==
[2019-03-16 08:53] LABS: INR 2.03 (0.87-1.13)
[2019-03-16 08:54] LABS: Partial Thromboplastin Time 36.2 Sec. (24.2-36.6)
--- NOTE | 2019-03-16 12:10 | Ultrasound Report ---
ULTRASOUND PARACENTESIS HISTORY: Ascites. DESCRIPTION OF PROCEDURE: A time out was performed. Informed consent was obtained. Sterile technique was utilized. Using ultrasound guidance, a 5 Greenlandic centesis needle was advanced into the peritoneal space. There was spontaneous return of clear yellow fluid. 4 L of fluid was drained. No complications. IMPRESSION: Successful ultrasound-guided paracentesis.
[2019-03-16] MEDS ORDERED: ALBURX 25% (ALBUMIN) IV PRN (12:12)
--- NOTE | 2019-03-16 12:12 | Short Stay Summary ---
Short Stay Documentation Date of service: 03/16/19 - History Principal diagnosis: ascites Past Medical History: renal failure - Allergies and Medications Current Medications: Allergies grape Allergy (Verified 07/02/16 10:13) Itching pineapple Allergy (Verified 07/02/16 10:13) Itching Home Medications Medication Instructions Recorded Confirmed Last Taken Type Pravastatin Sodium [Pravastatin] 20 mg PO QHS 08/16/13 02/11/19 02/10/19 History Furosemide [Furosemide ORAL LIQ] 40 mg PO DAILY #30 ml 10/30/14 02/11/19 02/10/19 Rx Potassium Chloride [K-Dur] 20 meq PO QDAY 02/24/15 02/11/19 02/10/19 History Warfarin [Coumadin] 6 mg PO DAILY@1700 02/24/15 02/11/19 02/06/19 History Aspirin 325 mg PO ONCE 05/14/16 02/11/19 02/06/19 History amLODIPine [Norvasc] 10 mg PO DAILY 05/14/16 02/11/19 02/10/19 History Carvedilol [Coreg] 6.25 mg PO BID #60 tablet 06/13/16 02/11/19 02/10/19 Rx Lisinopril [Zestril TAB] 2.5 mg PO QDAY #30 tablet 06/13/16 02/11/19 02/10/19 Rx Digoxin [Lanoxin] 0.125 mg PO QDAY 08/20/16 02/11/19 02/10/19 History Palbociclib [Ibrance] 125 mg PO QDAY 06/26/17 02/11/19 02/10/19 History - Physical exam General appearance: no acute distress Gastrointestinal: distended - Brief post op/procedure progress note Date of procedure: 03/16/19 Pre-op diagnosis: ascites Post-op diagnosis: same Procedure: US paracentesis Anesthesia: local Findings: moderate ascites Surgeon: RAYMUNDO NIETO Estimated blood loss: none Pathology: none Specimen disposition: discarded Condition: stable - Disposition Condition at discharge: Good Disposition: DC-01 TO HOME OR SELFCARE Short Stay Discharge Plan Follow up with: DEEDEE BLANCO MD [Primary Care Provider] - 7 Days
[2019-03-16 12:46] VITALS: BP 116/47
== END 2019-03-16 07:44 | disposition home or self-care (01) ==
LOC: CATHLABREC 07:43
PROVIDERS: ATTEND Internal Medicine Hematology & Oncology
DX: R18.8 Other ascites (principal); I11.0 Hypertensive heart disease with heart failure; I50.23 Acute on chronic systolic (congestive) heart failure; I48.91 Unspecified atrial fibrillation; D64.9 Anemia, unspecified; E78.00 Pure hypercholesterolemia, unspecified; Z86.718 Personal history of other venous thrombosis and embolism; Z80.8 Family history of malignant neoplasm of other organs or systems; Z80.1 Family history of malignant neoplasm of trachea, bronchus and lung; Z79.899 Other long term (current) drug therapy; Z85.3 Personal history of malignant neoplasm of breast; Z98.49 Cataract extraction status, unspecified eye; Z79.01 Long term (current) use of anticoagulants; Z79.82 Long term (current) use of aspirin; Z98.890 Other specified postprocedural states; Z90.11 Acquired absence of right breast and nipple; Z82.49 Family history of ischemic heart disease and other diseases of the circulatory system; Z88.8 Allergy status to other drugs, medicaments and biological substances
CPT/HCPCS: 36415; 49083; 85610; 85730; C1729

== ENCOUNTER 2019-04-14 07:21 | Day surgery (SDC) | payer MEDICARE ==
[2019-04-14 08:17] LABS: INR 1.66 (0.87-1.13)
[2019-04-14 10:03] VITALS: BP 111/61
--- NOTE | 2019-04-14 10:08 | Ultrasound Report ---
ULTRASOUND PARACENTESIS: 04/14/19 07:51:00 CLINICAL: Ascites. FINDINGS: Ultrasound demonstrated a large volume of ascites. Consent for the procedure was obtained and a time out was called. Using ultrasound guidance, 1% lidocaine local anesthesia and a 5-Andorran Yueh catheter, paracentesis was performed in the left lower quadrant. 4.4L of of dark mary jo fluid was removed. The patient tolerated the procedure well and there were no apparent complications. IMPRESSION: Uncomplicated paracentesis with removal of 4.4 L of ascitic fluid.
== END 2019-04-14 10:30 | disposition home or self-care (01) ==
LOC: CATHLABREC 07:21 → EDSTATUS 07:30 → CATHLABREC 10:30
PROVIDERS: ATTEND Specialist
DX: R18.8 Other ascites (principal); I48.91 Unspecified atrial fibrillation; I11.0 Hypertensive heart disease with heart failure; I50.23 Acute on chronic systolic (congestive) heart failure; E78.5 Hyperlipidemia, unspecified; D64.9 Anemia, unspecified; E78.00 Pure hypercholesterolemia, unspecified; Z86.718 Personal history of other venous thrombosis and embolism; Z90.11 Acquired absence of right breast and nipple; Z98.891 History of uterine scar from previous surgery; Z88.8 Allergy status to other drugs, medicaments and biological substances; Z79.899 Other long term (current) drug therapy; Z79.82 Long term (current) use of aspirin; Z98.890 Other specified postprocedural states; Z85.3 Personal history of malignant neoplasm of breast; Z80.1 Family history of malignant neoplasm of trachea, bronchus and lung; Z82.49 Family history of ischemic heart disease and other diseases of the circulatory system
CPT/HCPCS: 36415; 49083; 85610

== ENCOUNTER 2019-05-14 07:38 | Day surgery (SDC) | payer MEDICARE ==
[2019-05-14 08:29] LABS: INR 1.73 (0.87-1.13)
[2019-05-14] MEDS ORDERED: XYLOCAINE 1% 20 mL ONE (10:11)
[2019-05-14 12:39] VITALS: BP 119/67
[2019-05-14] MEDS ORDERED: ALBURX 25% (ALBUMIN) IV PRN (13:35)
--- NOTE | 2019-05-14 13:37 | Short Stay Summary ---
Short Stay Documentation Date of service: 05/14/19 - History Principal diagnosis: ascites Past Medical History: ESRD - Allergies and Medications Current Medications: Allergies grape Allergy (Verified 07/02/16 10:13) Itching pineapple Allergy (Verified 07/02/16 10:13) Itching Home Medications Medication Instructions Recorded Confirmed Last Taken Type Pravastatin Sodium [Pravastatin] 20 mg PO QHS 08/16/13 05/14/19 05/13/19 History Furosemide [Furosemide ORAL LIQ] 40 mg PO DAILY #30 ml 10/30/14 05/14/19 05/13/19 Rx Potassium Chloride [K-Dur] 20 meq PO QDAY 02/24/15 05/14/19 05/13/19 History Warfarin [Coumadin] 6 mg PO DAILY@1700 02/24/15 05/14/19 05/10/19 History Aspirin 325 mg PO ONCE 05/14/16 05/14/19 05/13/19 History amLODIPine [Norvasc] 10 mg PO DAILY 05/14/16 05/14/19 05/13/19 History Carvedilol [Coreg] 6.25 mg PO BID #60 tablet 06/13/16 05/14/19 05/13/19 Rx Lisinopril [Zestril TAB] 2.5 mg PO QDAY #30 tablet 06/13/16 05/14/19 05/13/19 Rx Digoxin [Lanoxin] 0.125 mg PO QDAY 08/20/16 05/14/19 05/13/19 History Palbociclib [Ibrance] 125 mg PO QDAY 06/26/17 05/14/19 05/13/19 History - Physical exam General appearance: no acute distress Gastrointestinal: distended - Brief post op/procedure progress note Date of procedure: 05/14/19 Pre-op diagnosis: ascites Post-op diagnosis: same Procedure: US paracentesis Anesthesia: local Findings: moderate ascites Surgeon: RAYMUNDO NIETO Estimated blood loss: none Pathology: none Specimen disposition: discarded Condition: stable - Hospital course Hospital course: uneventful - Disposition Condition at discharge: Good Disposition: DC-01 TO HOME OR SELFCARE Short Stay Discharge Plan Follow up with: DEEDEE BLANCO MD [Primary Care Provider] - 7 Days
--- NOTE | 2019-05-14 15:53 | Ultrasound Report ---
ULTRASOUND-GUIDED PARACENTESIS HISTORY: ascites. PROCEDURE: The risks (including but not limited to bleeding, infection, and bowel injury) and benefi ts were explained to the patient and informed consent was obtained. A time out procedure was perform ed. Ultrasound was used to evaluate the abdomen and locate the largest ascites fluid pocket. Once the sk in was marked, the procedure site was prepped and draped in the usual sterile fashion and lidocaine w as used for local anesthesia. A skin mansoor was made and a 6-Kyrgyz paracentesis catheter was placed. The patient was monitored closely throughout the procedure, and a total of 4400 mL of blood-tinged f luid was aspirated. Samples were sent to the lab for further evaluation per the primary clinicians o rders. The patient tolerated the procedure well with no complications. IMPRESSION: Successful ultrasound-guided paracentesis. Signer Name: Emerson Metcalf Jr, MD Signed: 05/14/2019 3:49 PM Workstation Name: [id number]
== END 2019-05-14 14:00 | disposition home or self-care (01) ==
LOC: CATHLABREC 07:38
PROVIDERS: ATTEND Specialist
DX: R18.8 Other ascites (principal); I11.0 Hypertensive heart disease with heart failure; I50.23 Acute on chronic systolic (congestive) heart failure; I48.91 Unspecified atrial fibrillation; H40.9 Unspecified glaucoma; Z80.8 Family history of malignant neoplasm of other organs or systems; Z80.1 Family history of malignant neoplasm of trachea, bronchus and lung; Z85.3 Personal history of malignant neoplasm of breast; Z88.8 Allergy status to other drugs, medicaments and biological substances; Z79.01 Long term (current) use of anticoagulants; Z79.82 Long term (current) use of aspirin; Z79.899 Other long term (current) drug therapy; Z98.49 Cataract extraction status, unspecified eye; Z86.718 Personal history of other venous thrombosis and embolism; Z90.11 Acquired absence of right breast and nipple; Z98.891 History of uterine scar from previous surgery; Z98.890 Other specified postprocedural states; Z82.49 Family history of ischemic heart disease and other diseases of the circulatory system
CPT/HCPCS: 36415; 49083; 85610; 85730

== ENCOUNTER 2019-06-14 07:42 | Day surgery (SDC) | payer MEDICARE ==
[2019-06-14 08:36] LABS: INR 1.54 (0.87-1.13)
[2019-06-14 08:37] LABS: Partial Thromboplastin Time 31.9 Sec. (24.2-36.6)
[2019-06-14] MEDS ORDERED: XYLOCAINE 1% 20 mL ONE (08:46)
[2019-06-14] MEDS ORDERED: ALBURX 25% (ALBUMIN) IV PRN (09:47)
--- NOTE | 2019-06-14 09:47 | Short Stay Summary ---
Short Stay Documentation Date of service: 06/14/19 Narrative H&P: ascites - History Principal diagnosis: ascites Past Medical History: renal failure - Allergies and Medications Current Medications: Allergies grape Allergy (Verified 07/02/16 10:13) Itching pineapple Allergy (Verified 07/02/16 10:13) Itching Home Medications Medication Instructions Recorded Confirmed Last Taken Type Pravastatin Sodium [Pravastatin] 20 mg PO QHS 08/16/13 05/14/19 06/13/19 History Furosemide [Furosemide ORAL LIQ] 40 mg PO DAILY #30 ml 10/30/14 06/14/19 06/13/19 Rx Potassium Chloride [K-Dur] 20 meq PO QDAY 02/24/15 06/14/19 06/13/19 History Warfarin [Coumadin] 6 mg PO DAILY@1700 02/24/15 06/14/19 06/09/19 History Aspirin 325 mg PO ONCE 05/14/16 06/14/19 06/09/19 History amLODIPine [Norvasc] 10 mg PO DAILY 05/14/16 06/14/19 06/13/19 History Carvedilol [Coreg] 6.25 mg PO BID #60 tablet 06/13/16 06/14/19 06/13/19 Rx Lisinopril [Zestril TAB] 2.5 mg PO QDAY #30 tablet 06/13/16 06/14/19 06/13/19 Rx Digoxin [Lanoxin] 0.125 mg PO QDAY 08/20/16 06/14/19 06/13/19 History Palbociclib [Ibrance] 125 mg PO QDAY 06/26/17 06/14/19 06/13/19 History - Physical exam General appearance: no acute distress Gastrointestinal: distended - Brief post op/procedure progress note Date of procedure: 06/14/19 Pre-op diagnosis: ascites Post-op diagnosis: same Procedure: US paracentesis Anesthesia: local Findings: moderate ascites Surgeon: RAYMUNDO NIETO Estimated blood loss: none Pathology: none Specimen disposition: discarded Condition: stable - Hospital course Hospital course: uneventful - Disposition Condition at discharge: Good Disposition: DC-01 TO HOME OR SELFCARE Short Stay Discharge Plan Follow up with: DEEDEE BLANCO MD [Primary Care Provider] - 7 Days
--- NOTE | 2019-06-14 09:52 | Ultrasound Report ---
ULTRASOUND-GUIDED PARACENTESIS HISTORY: ascites. PROCEDURE: The risks (including but not limited to bleeding, infection, and bowel injury) and benefi ts were explained to the patient and informed consent was obtained. A time out procedure was perform ed. Ultrasound was used to evaluate the abdomen and locate the largest ascites fluid pocket. Once the sk in was marked, the procedure site was prepped and draped in the usual sterile fashion and lidocaine w as used for local anesthesia. A skin mansoor was made and a 5 Niuean centesis catheter was placed. The patient was monitored closely throughout the procedure, and a total of 3800 mL of clear yellow fluid was aspirated. No labs were requested by the ordering physician. The patient tolerated the procedure well with no complications. IMPRESSION: Successful ultrasound-guided paracentesis as described. Signer Name: Emerson Metcalf Jr, MD Signed: 06/14/2019 9:48 AM Workstation Name: [id number]
[2019-06-14 10:37] VITALS: BP 119/67
== END 2019-06-14 10:48 | disposition home or self-care (01) ==
LOC: CATHLABREC 07:42
PROVIDERS: ATTEND Specialist
DX: R18.8 Other ascites (principal); I11.0 Hypertensive heart disease with heart failure; I50.23 Acute on chronic systolic (congestive) heart failure; I48.91 Unspecified atrial fibrillation; E78.5 Hyperlipidemia, unspecified; D64.9 Anemia, unspecified; H40.9 Unspecified glaucoma; J18.9 Pneumonia, unspecified organism; Z90.11 Acquired absence of right breast and nipple; Z98.891 History of uterine scar from previous surgery; Z79.82 Long term (current) use of aspirin; Z79.01 Long term (current) use of anticoagulants; Z88.8 Allergy status to other drugs, medicaments and biological substances; Z79.899 Other long term (current) drug therapy; Z85.3 Personal history of malignant neoplasm of breast; Z98.49 Cataract extraction status, unspecified eye; Z86.718 Personal history of other venous thrombosis and embolism; Z98.890 Other specified postprocedural states; Z80.1 Family history of malignant neoplasm of trachea, bronchus and lung; Z82.49 Family history of ischemic heart disease and other diseases of the circulatory system
CPT/HCPCS: 36415; 49083; 85610; 85730

== ENCOUNTER 2019-07-12 09:41 | Outpatient (CLI) | payer MEDICARE ==
--- NOTE | 2019-07-12 11:36 | Mammography Report ---
DIGITAL SCREENING MAMMOGRAM WITH CAD, 07/12/2019 INDICATION: Routine screening mammography. Breast cancer survivor status post right mastectomy. TECHNIQUE: Digital left 2D mammography was obtained in the craniocaudal and mediolateral oblique pro jections. This examination was interpreted with the benefit of Computer-Aided Detection analysis. COMPARISON: None. FINDINGS: Breast Density: The breast is heterogeneously dense, which may obscure small masses. There is no evidence of dominant mass, suspicious calcifications or architectural distortion in the l eft breast. IMPRESSION: No mammographic evidence of malignancy. Follow up recommendation: Routine yearly BI-RADS Category 1: Negative. A "normal" or negative report should not discourage follow up or biopsy of a clinically significant f inding. A written summary of these findings will be mailed to the patient. The patient will be entered into a mammography reporting system which will generate a reminder letter for the patient's next appointmen t at the appropriate interval. [employer] recommends yearly mammograms starting at age 40 and continuing as l esha as a woman is in good health. Breast MRI is recommended for women with an approximate 20-25% or greater lifetime risk of breast cancer, including women with a strong family history of breast or ova lamar cancer or who have been treated for Hodgkin's disease. Signer Name: Blake Camara MD Signed: 07/12/2019 11:31 AM Workstation Name: [id number]
== END 2019-07-12 09:42 | disposition home or self-care (01) ==
LOC: SPVWC 09:41
PROVIDERS: ATTEND Internal Medicine Hematology & Oncology
DX: Z12.31 Encounter for screening mammogram for malignant neoplasm of breast (principal); I11.0 Hypertensive heart disease with heart failure; I50.9 Heart failure, unspecified; E78.00 Pure hypercholesterolemia, unspecified

== ENCOUNTER 2019-07-15 07:39 | Day surgery (SDC) | payer MEDICARE ==
[2019-07-15 09:02] LABS: INR 1.4 (0.87-1.13)
[2019-07-15 09:03] LABS: Partial Thromboplastin Time 29.2 Sec. (24.2-36.6)
[2019-07-15] MEDS ORDERED: ALBURX 25% (ALBUMIN) IV PRN (10:47)
--- NOTE | 2019-07-15 10:47 | Short Stay Summary ---
Short Stay Documentation Date of service: 07/15/19 Narrative H&P: ascites - History Principal diagnosis: ascites Past Medical History: cancer, renal failure - Allergies and Medications Current Medications: Allergies grape Allergy (Verified 07/02/16 10:13) Itching pineapple Allergy (Verified 07/02/16 10:13) Itching Home Medications Medication Instructions Recorded Confirmed Last Taken Type Pravastatin Sodium [Pravastatin] 20 mg PO QHS 08/16/13 07/15/19 07/14/19 History Furosemide [Furosemide ORAL LIQ] 40 mg PO DAILY #30 ml 10/30/14 07/15/19 07/14/19 Rx Potassium Chloride [K-Dur] 20 meq PO QDAY 02/24/15 07/15/19 07/14/19 History Warfarin [Coumadin] 6 mg PO DAILY@1700 02/24/15 07/15/19 07/11/19 History Aspirin 325 mg PO ONCE 05/14/16 07/15/19 07/11/19 History amLODIPine [Norvasc] 10 mg PO DAILY 05/14/16 07/15/19 07/14/19 History Carvedilol [Coreg] 6.25 mg PO BID #60 tablet 06/13/16 07/15/19 07/14/19 Rx Lisinopril [Zestril TAB] 2.5 mg PO QDAY #30 tablet 06/13/16 07/15/19 07/14/19 Rx Digoxin [Lanoxin] 0.125 mg PO QDAY 08/20/16 07/15/19 07/14/19 History Palbociclib [Ibrance] 125 mg PO QDAY 06/26/17 07/15/19 07/14/19 History - Physical exam General appearance: no acute distress Gastrointestinal: distended - Brief post op/procedure progress note Date of procedure: 07/15/19 Pre-op diagnosis: ascites Post-op diagnosis: same Procedure: US paracentesis Anesthesia: local Findings: moderate ascites Surgeon: RAYMUNDO NIETO Estimated blood loss: none Pathology: none Specimen disposition: discarded - Hospital course Hospital course: uneventful - Disposition Condition at discharge: Good Disposition: DC-01 TO HOME OR SELFCARE Short Stay Discharge Plan Follow up with: DEEDEE BLANCO MD [Primary Care Provider] - 7 Days
--- NOTE | 2019-07-15 12:02 | Ultrasound Report ---
ULTRASOUND-GUIDED PARACENTESIS HISTORY: acites. PROCEDURE: The risks (including but not limited to bleeding, infection, and bowel injury) and benefi ts were explained to the patient and informed consent was obtained. A time out procedure was perform ed. Ultrasound was used to evaluate the abdomen and locate the largest ascites fluid pocket. Once the sk in was marked, the procedure site was prepped and draped in the usual sterile fashion and lidocaine w as used for local anesthesia. A skin mansoor was made and a 5 Ukrainian centesis catheter was placed. The patient was monitored closely throughout the procedure, and a total of 3600 mL of clear yellow fluid was aspirated. No labs were ordered. The patient tolerated the procedure well with no complications. IMPRESSION: Successful ultrasound-guided paracentesis as described. Signer Name: Emerson Metcalf Jr, MD Signed: 07/15/2019 11:58 AM Workstation Name: [id number]
[2019-07-15 13:40] VITALS: BP 109/51
== END 2019-07-15 13:45 | disposition home or self-care (01) ==
LOC: CATHLABREC 07:39
PROVIDERS: ATTEND Specialist
DX: R18.8 Other ascites (principal); I11.0 Hypertensive heart disease with heart failure; I50.23 Acute on chronic systolic (congestive) heart failure; D64.9 Anemia, unspecified; E78.5 Hyperlipidemia, unspecified; I48.91 Unspecified atrial fibrillation; Z90.11 Acquired absence of right breast and nipple; Z86.718 Personal history of other venous thrombosis and embolism; Z98.891 History of uterine scar from previous surgery; Z79.899 Other long term (current) drug therapy; Z79.01 Long term (current) use of anticoagulants; Z79.82 Long term (current) use of aspirin; Z85.3 Personal history of malignant neoplasm of breast; Z98.49 Cataract extraction status, unspecified eye; Z98.890 Other specified postprocedural states; Z80.1 Family history of malignant neoplasm of trachea, bronchus and lung; Z82.49 Family history of ischemic heart disease and other diseases of the circulatory system; Z88.8 Allergy status to other drugs, medicaments and biological substances
CPT/HCPCS: 36415; 49083; 85610; 85730; 96365; P9047

== ENCOUNTER 2019-08-13 08:16 | Day surgery (SDC) | payer MEDICARE ==
[2019-08-13 09:45] LABS: INR 1.55 (0.87-1.13)
[2019-08-13 09:46] LABS: Partial Thromboplastin Time 32.8 Sec. (24.2-36.6)
[2019-08-13] MEDS ORDERED: ALBURX 25% (ALBUMIN) IV PRN (11:18)
--- NOTE | 2019-08-13 11:18 | Short Stay Summary ---
Short Stay Documentation Date of service: 08/13/19 Narrative H&P: ascites - History Principal diagnosis: ascites Past Medical History: renal failure - Allergies and Medications Current Medications: Allergies grape Allergy (Verified 07/02/16 10:13) Itching pineapple Allergy (Verified 07/02/16 10:13) Itching Home Medications Medication Instructions Recorded Confirmed Last Taken Type Pravastatin Sodium [Pravastatin] 20 mg PO QHS 08/16/13 07/15/19 07/14/19 History 20 mg Furosemide [Furosemide ORAL LIQ] 40 mg PO DAILY #30 ml 10/30/14 07/15/19 07/14/19 Rx 40 mg Potassium Chloride [K-Dur] 20 meq PO QDAY 02/24/15 07/15/19 07/14/19 History 20 meq Warfarin [Coumadin] 6 mg PO DAILY@1700 02/24/15 07/15/19 07/11/19 History 6 mg Aspirin 325 mg PO ONCE 05/14/16 07/15/19 07/11/19 History 325 mg amLODIPine [Norvasc] 10 mg PO DAILY 05/14/16 07/15/19 07/14/19 History 10 mg Carvedilol [Coreg] 6.25 mg PO BID #60 tablet 06/13/16 07/15/19 07/14/19 Rx Lisinopril [Zestril TAB] 2.5 mg PO QDAY #30 tablet 06/13/16 07/15/19 07/14/19 Rx Digoxin [Lanoxin] 0.125 mg PO QDAY 08/20/16 07/15/19 07/14/19 History Palbociclib [Ibrance] 125 mg PO QDAY 06/26/17 07/15/19 07/14/19 History 125 mg - Physical exam General appearance: no acute distress Gastrointestinal: distended - Brief post op/procedure progress note Date of procedure: 08/13/19 Pre-op diagnosis: ascites Post-op diagnosis: same Procedure: US paracentesis Anesthesia: local Findings: moderate ascites Surgeon: RAYMUNDO NIETO Estimated blood loss: none Pathology: none Specimen disposition: discarded Condition: stable - Hospital course Hospital course: uneventful - Disposition Condition at discharge: Good Disposition: DC-01 TO HOME OR SELFCARE Short Stay Discharge Plan Follow up with: DEEDEE BLANCO MD [Primary Care Provider] - 7 Days
[2019-08-13 11:50] VITALS: BP 118/67
--- NOTE | 2019-08-13 13:20 | Ultrasound Report ---
ULTRASOUND-GUIDED PARACENTESIS HISTORY: ASCITES. PROCEDURE: The risks (including but not limited to bleeding, infection, and bowel injury) and benefi ts were explained to the patient and informed consent was obtained. A time out procedure was perform ed. Ultrasound was used to evaluate the abdomen and locate the largest ascites fluid pocket. Once the sk in was marked, the procedure site was prepped and draped in the usual sterile fashion and lidocaine w as used for local anesthesia. A skin mansoor was made and a 5 Gibraltarian centesis catheter was placed. The patient was monitored closely throughout the procedure, and a total of 4400 mL of clear yellow fluid was aspirated. No labs were ordered. The patient tolerated the procedure well with no complications. IMPRESSION: Successful ultrasound-guided paracentesis as described. Signer Name: Emerson Metcalf Jr, MD Signed: 08/13/2019 1:16 PM Workstation Name: [id number]
== END 2019-08-13 12:00 | disposition home or self-care (01) ==
LOC: CATHLABREC 08:16
PROVIDERS: ATTEND Specialist
DX: R18.8 Other ascites (principal); I11.0 Hypertensive heart disease with heart failure; I50.23 Acute on chronic systolic (congestive) heart failure; I48.91 Unspecified atrial fibrillation; E78.5 Hyperlipidemia, unspecified; D64.9 Anemia, unspecified; Z85.3 Personal history of malignant neoplasm of breast; Z98.49 Cataract extraction status, unspecified eye; Z86.718 Personal history of other venous thrombosis and embolism; Z90.11 Acquired absence of right breast and nipple; Z88.8 Allergy status to other drugs, medicaments and biological substances; Z79.01 Long term (current) use of anticoagulants; Z79.82 Long term (current) use of aspirin; Z79.899 Other long term (current) drug therapy; Z98.891 History of uterine scar from previous surgery; Z98.890 Other specified postprocedural states; Z80.1 Family history of malignant neoplasm of trachea, bronchus and lung; Z82.49 Family history of ischemic heart disease and other diseases of the circulatory system
CPT/HCPCS: 36415; 49083; 85610; 85730

== ENCOUNTER 2019-09-13 07:51 | Day surgery (SDC) | payer MEDICARE ==
[2019-09-13 09:15] LABS: INR TNR (0.87-1.13)
[2019-09-13 10:21] LABS: INR 1.57 (0.87-1.13); Partial Thromboplastin Time 31.7 Sec. (24.2-36.6)
--- NOTE | 2019-09-13 10:55 | Procedure Note ---
Date of procedure: 09/13/19 Pre-op diagnosis: Ascites Post-op diagnosis: same Procedure: Ultrasound guided paracentesis. Findings: See report in PACS. Anesthesia: local Surgeon: GEORGIA AWAN Estimated blood loss: none Pathology: none Condition: stable Disposition: same day
[2019-09-13] MEDS ORDERED: ALBUMIN HUMAN 25% (25 GM/100 ML) INJ IV PRN (11:30)
[2019-09-13 11:34] VITALS: BP 103/41
--- NOTE | 2019-09-13 11:52 | Ultrasound Report ---
Ultrasound-guided paracentesis HISTORY: ascites. Acute dyspnea PROCEDURE: The risks (including but not limited to bleeding, infection, and bowel injury) and benefi ts were explained to the patient and informed consent was obtained. A time out procedure was perform ed. Ultrasound was used to evaluate the abdomen and locate the largest ascites fluid pocket. Once the sk in was marked, the procedure site was prepped and draped in the usual sterile fashion and lidocaine w as used for local anesthesia. A skin mansoor was made and a 6-Pakistani paracentesis catheter was placed. The patient was monitored closely throughout the procedure, and a total of 4900 mL of straw-colored fluid was aspirated. The patient tolerated the procedure well with no complications. IMPRESSION: Successful paracentesis as above with a total of 4900 mL of straw-colored fluid aspirated . Signer Name: Maldonado Raya MD Signed: 09/13/2019 11:47 AM Workstation Name: [id number]
== END 2019-09-13 12:30 | disposition home or self-care (01) ==
LOC: CATHLABREC 07:51
PROVIDERS: ATTEND Specialist
DX: R18.8 Other ascites (principal); R06.09 Other forms of dyspnea; I11.0 Hypertensive heart disease with heart failure; I50.23 Acute on chronic systolic (congestive) heart failure; I48.91 Unspecified atrial fibrillation; E78.5 Hyperlipidemia, unspecified; D64.9 Anemia, unspecified; H40.9 Unspecified glaucoma; Z86.718 Personal history of other venous thrombosis and embolism; Z88.8 Allergy status to other drugs, medicaments and biological substances; Z79.82 Long term (current) use of aspirin; Z79.01 Long term (current) use of anticoagulants; Z79.899 Other long term (current) drug therapy; Z85.3 Personal history of malignant neoplasm of breast; Z98.49 Cataract extraction status, unspecified eye; Z90.11 Acquired absence of right breast and nipple; Z80.1 Family history of malignant neoplasm of trachea, bronchus and lung; Z98.890 Other specified postprocedural states; Z98.891 History of uterine scar from previous surgery; Z82.49 Family history of ischemic heart disease and other diseases of the circulatory system
CPT/HCPCS: 36415; 49083; 85610; 85730

== ENCOUNTER 2019-10-06 10:14 | Outpatient (CLI) | payer MEDICARE ==
--- NOTE | 2019-10-06 13:49 | Cat Scan Report ---
CT CHEST WITHOUT CONTRAST INDICATION / CLINICAL INFORMATION: C50.911 MALIGNANT NEOPLASM OF UNSP SITE OF RIGHT FEMALE BREAST. TECHNIQUE: Axial CT images were obtained through the chest without contrast. Sagittal and coronal reformatted im ages. All CT scans at this location are performed using CT dose reduction for ALARA by means of autom ated exposure control. COMPARISON: No comparison CT chest FINDINGS: HEART: Moderate to severe cardiomegaly. No significant pericardial effusion. THORACIC AORTA: No significant abnormality. MEDIASTINUM and SLOANE: No mass or pathologic adenopathy. The thyroid gland, tracheobronchial tree and esophagus are unremarkable. LUNGS: Mild volume loss and linear scarring is identified throughout the right lung which may be seco ndary to radiation changes. The lungs are clear otherwise. No significant parenchymal disease, nodule or infiltrate. PLEURA: There is diffuse right pleural thickening and small right pleural fluid. No obvious pleural-b ased mass on noncontrast exam. This may be secondary to radiation changes as well. No left pleural ab normality. No pneumothorax. SKELETAL SYSTEM: No suspicious bony lesion. ADDITIONAL FINDINGS: Stable right mastectomy changes. IMPRESSION: No evidence for disease recurrence or metastasis in the chest on noncontrast CT. Moderate to severe cardiomegaly. Chronic pleural parenchymal changes in the right lung as outlined above. No suspicious thoracic mass or adenopathy. CT ABDOMEN AND PELVIS WITHOUT CONTRAST HISTORY: C50.911 MALIGNANT NEOPLASM OF UNSP SITE OF RIGHT FEMALE BREAST COMPARISON: CT abdomen pelvis with contrast dated 05/31/2016 TECHNIQUE: Axial CT images were obtained through the abdomen and pelvis without IV contrast. Sagittal and coronal reformatted images. All CT scans at this location are performed using CT dose reduction for ALARA by means of automated exposure control. FINDINGS: CT ABDOMEN: Liver: No suspicious liver mass is identified. 3 cm cyst with wall calcifications is noted in the lef t hepatic lobe. There is suggestion of minimal underlying cirrhosis. Biliary: No significant abnormality. Spleen: No significant abnormality. Unenlarged. Pancreas: No significant abnormality. Adrenals: No significant abnormality. Kidneys: No significant abnormality. Lymphatics: No lymphadenopathy. Vasculature: No significant abnormality. Bowel/Peritoneum: No evidence for bowel obstruction or focal inflammation. There are scattered divert icula throughout the length of the colon. The appendix is not confidently identified. CT PELVIS: : At least 2 small calcified uterine fibroids are identified measuring up to 1.5 cm. The adnexa are unremarkable. The bladder is within normal limits. Osseous Structures: No suspicious bony lesion. Additional Findings: Large ascites is present throughout the abdomen. IMPRESSION: No evidence for metastatic disease to the abdomen or pelvis. Minimal underlying cirrhotic changes in the liver. Large ascites. Mild colonic diverticulosis. Mild uterine fibroid disease. Signer Name: Emerson Metcalf Jr, MD Signed: 10/06/2019 1:44 PM Workstation Name: [id number]
== END 2019-10-06 10:15 | disposition home or self-care (01) ==
LOC: CT 10:14
PROVIDERS: ATTEND Internal Medicine Hematology & Oncology
DX: K57.30 Diverticulosis of large intestine without perforation or abscess without bleeding (principal); D25.9 Leiomyoma of uterus, unspecified; C50.911 Malignant neoplasm of unspecified site of right female breast; I11.0 Hypertensive heart disease with heart failure; I50.9 Heart failure, unspecified; C78.01 Secondary malignant neoplasm of right lung; Z98.41 Cataract extraction status, right eye; Z86.69 Personal history of other diseases of the nervous system and sense organs; Z90.11 Acquired absence of right breast and nipple
CPT/HCPCS: 71250; 74176

== ENCOUNTER 2019-10-08 07:40 | Inpatient (IN) | payer MEDICARE, MEDICAID ==
[2019-10-08 09:06] LABS: INR 1.45 (0.87-1.13)
--- NOTE | 2019-10-08 12:13 | Short Stay Summary ---
Short Stay Documentation Date of service: 10/08/19 - History Principal diagnosis: ascites Past Medical History: liver disease, renal failure - Allergies and Medications Current Medications: Allergies grape Allergy (Verified 07/02/16 10:13) Itching pineapple Allergy (Verified 07/02/16 10:13) Itching Home Medications Medication Instructions Recorded Confirmed Last Taken Type Pravastatin Sodium [Pravastatin] 20 mg PO QHS 08/16/13 09/13/19 09/12/19 History 20 mg Furosemide [Furosemide ORAL LIQ] 40 mg PO DAILY #30 ml 10/30/14 09/13/19 09/12/19 Rx 40 mg Potassium Chloride [K-Dur] 20 meq PO QDAY 02/24/15 09/13/19 09/12/19 History 20 meq Warfarin [Coumadin] 6 mg PO DAILY@1700 02/24/15 09/13/19 09/12/19 History 6 mg Aspirin 325 mg PO ONCE 05/14/16 09/13/19 09/12/19 History 325 mg amLODIPine 10 mg PO DAILY 05/14/16 09/13/19 09/12/19 History 10 mg Lisinopril [Zestril TAB] 2.5 mg PO QDAY #30 tablet 06/13/16 09/13/19 09/12/19 Rx 2.5mg carvediloL [Coreg] 6.25 mg PO BID #60 tablet 06/13/16 09/13/19 09/12/19 Rx 6.25mg Digoxin [Lanoxin] 0.125 mg PO QDAY 08/20/16 09/13/19 09/12/19 History 0.125mg Palbociclib [Ibrance] 125 mg PO QDAY 06/26/17 09/13/19 09/12/19 History 125 mg - Physical exam General appearance: no acute distress Gastrointestinal: distended - Brief post op/procedure progress note Date of procedure: 10/08/19 Pre-op diagnosis: ascites Post-op diagnosis: other (hemoperitoneum) Anesthesia: local Findings: large ascites/hemoperitoneum Surgeon: RAYMUNDO NIETO Estimated blood loss: none Pathology: list (120cc saved for labs if needed. None ordered by MD) Specimen disposition: other (saved) - Hospital course Hospital course: Given the new hemoperitoneum, pt was sent to the ER for evaluation - Disposition Condition at discharge: Good Disposition: DC/[place]-70 ANOTHER TYPE [facility] Short Stay Discharge Plan Follow up with: DEEDEE BLANCO MD [Primary Care Provider] - 7 Days
--- NOTE | 2019-10-08 12:14 | Ultrasound Report ---
ULTRASOUND-GUIDED PARACENTESIS HISTORY: ascites. PROCEDURE: The risks (including but not limited to bleeding, infection, and bowel injury) and benefi ts were explained to the patient and informed consent was obtained. A time out procedure was perform ed. Ultrasound was used to evaluate the abdomen and locate the largest ascites fluid pocket. Once the sk in was marked, the procedure site was prepped and draped in the usual sterile fashion and lidocaine w as used for local anesthesia. A skin mansoor was made and a 5 Faroese centesis catheter was placed. The patient was monitored closely throughout the procedure, and a total of 6000 mL of bloody fluid was a spirated. 120 cc of fluid was saved if needed for laboratory analysis. The patient tolerated the procedure well with no complications. IMPRESSION: Successful ultrasound-guided paracentesis as described. 6 L of bloody fluid was aspirated . These findings were discussed with Dr. Kellogg (covering for Dr. Carvalho). A decision was made to s end the patient to the emergency room for evaluation. Signer Name: Emerson Metcalf Jr, MD Signed: 10/08/2019 12:10 PM Workstation Name: [id number]
[2019-10-08] MEDS ORDERED: SODIUM CHLORIDE 0.9% 250ML 250 ML IV ONE (13:11)
--- NOTE | 2019-10-08 13:13 | Emergency Department Report ---
<JAMES MORALES - Last Filed: 10/08/19 15:04> ED General Adult HPI - General Chief complaint: Medical Clearance Time Seen by Provider: 10/08/19 12:38 Source: patient, RN notes reviewed, old records reviewed Mode of arrival: Stretcher Limitations: No Limitations - History of Present Illness Initial comments: Primary care DrDar: Patient cannot remember Cardiology: Patient cannot remember Pulmonology: Dr Carvalho Hematology oncology: Dr Amanda Richards The patient is a pleasant 69-year-old female. This patient is not known to this provider previously. The patient has a history of A. fib on chronic Coumadin therapy. Also has a history of breast cancer, status post mastectomy, with recurrent pleural effusions and recurrent ascites. Patient typically gets sporadic paracenteses. She had a CT scan of the chest, abdomen, pelvis performed a few days ago, which showed large ascites, no evidence of underlying cirrhotic changes to the liver, otherwise no acute pathology. The patient was sent to the emergency room today after receiving her typical outpatient paracentesis, and was found to have hemoperitoneum. She was sent to the emergency room for evaluation. The patient denies physical pain at this time. She is not taking her Coumadin for 4 days, as instructed. She denies additional injuries and she denies complaints. -: This afternoon Severity scale (0 -10): 0 Improves with: none Worsens with: none Associated Symptoms: denies other symptoms - Related Data Home Medications Medication Instructions Recorded Confirmed Last Taken Pravastatin Sodium [Pravastatin] 20 mg PO QHS 08/16/13 09/13/19 09/12/19 20 mg Potassium Chloride [K-Dur] 20 meq PO QDAY 02/24/15 09/13/19 09/12/19 20 meq Warfarin [Coumadin] 6 mg PO DAILY@1700 02/24/15 09/13/19 09/12/19 6 mg Aspirin 325 mg PO ONCE 05/14/16 09/13/19 09/12/19 325 mg amLODIPine 10 mg PO DAILY 05/14/16 09/13/19 09/12/19 10 mg Digoxin [Lanoxin] 0.125 mg PO QDAY 08/20/16 09/13/19 09/12/19 0.125mg Palbociclib [Ibrance] 125 mg PO QDAY 06/26/17 09/13/19 09/12/19 125 mg Previous Rx's Medication Instructions Recorded Last Taken Type Furosemide [Furosemide ORAL LIQ] 40 mg PO DAILY #30 ml 10/30/14 09/12/19 Rx 40 mg Lisinopril [Zestril TAB] 2.5 mg PO QDAY #30 tablet 06/13/16 09/12/19 Rx 2.5mg carvediloL [Coreg] 6.25 mg PO BID #60 tablet 06/13/16 09/12/19 Rx 6.25mg Allergies Allergy/AdvReac Type Severity Reaction Status Date / Time grape Allergy Itching Verified 07/02/16 10:13 pineapple Allergy Itching Verified 07/02/16 10:13 ED Review of Systems Constitutional: denies: fever Eyes: denies: eye discharge ENT: denies: congestion Respiratory: denies: wheezing Cardiovascular: denies: syncope Gastrointestinal: denies: abdominal pain, hematemesis, melena, hematochezia Genitourinary: denies: dysuria Neurological: denies: weakness Hematological/Lymphatic: denies: easy bleeding ED Past Medical Hx - Past Medical History Hx Hypertension: Yes (2003) Hx Congestive Heart Failure: Yes Hx Diabetes: No Hx Deep Vein Thrombosis: (Unk) Hx of Cancer: Yes Hx Asthma: No Hx COPD: No Additional medical history: glaucoma. atrial fibrillation - Surgical History Hx Pacemaker: No Hx Internal Defibrillator: No Hx Breast Surgery: Yes (right mastectomy 2004) Additional Surgical History: eye surgery. drain placed by pulmonary doctor to help with fluid overload. - Social History Smoking Status: Never Smoker Substance Use Type: None - Medications Home Medications: Home Medications Medication Instructions Recorded Confirmed Last Taken Type Pravastatin Sodium [Pravastatin] 20 mg PO QHS 08/16/13 09/13/19 09/12/19 History 20 mg Furosemide [Furosemide ORAL LIQ] 40 mg PO DAILY #30 ml 10/30/14 09/13/19 09/12/19 Rx 40 mg Potassium Chloride [K-Dur] 20 meq PO QDAY 02/24/15 09/13/19 09/12/19 History 20 meq Warfarin [Coumadin] 6 mg PO DAILY@1700 02/24/15 09/13/19 09/12/19 History 6 mg Aspirin 325 mg PO ONCE 05/14/16 09/13/19 09/12/19 History 325 mg amLODIPine 10 mg PO DAILY 05/14/16 09/13/19 09/12/19 History 10 mg Lisinopril [Zestril TAB] 2.5 mg PO QDAY #30 tablet 06/13/16 09/13/19 09/12/19 Rx 2.5mg carvediloL [Coreg] 6.25 mg PO BID #60 tablet 06/13/16 09/13/19 09/12/19 Rx 6.25mg Digoxin [Lanoxin] 0.125 mg PO QDAY 08/20/16 09/13/19 09/12/19 History 0.125mg Palbociclib [Ibrance] 125 mg PO QDAY 06/26/17 09/13/19 09/12/19 History 125 mg ED Physical Exam - General Limitations: No Limitations General appearance: alert, in no apparent distress - Head Head exam: Present: atraumatic, normocephalic - Eye Eye exam: Present: normal appearance, EOMI. Absent: nystagmus - ENT ENT exam: Present: normal exam, normal orophraynx, mucous membranes moist, normal external ear exam - Neck Neck exam: Present: normal inspection, full ROM. Absent: tenderness, meni ngismus - Respiratory Respiratory exam: Present: normal lung sounds bilaterally. Absent: respiratory distress - Cardiovascular Cardiovascular Exam: Present: bradycardia, irregular rhythm, normal heart sounds. Absent: systolic murmur, diastolic murmur, rubs, gallop - GI/Abdominal GI/Abdominal exam: Present: soft, other (fluid wave is noted. There is no tenderness, rebound or guarding.). Absent: tenderness, guarding, rebound, rigid, pulsatile mass - Extremities Exam Extremities exam: Present: normal inspection, full ROM, other (2+ pulses noted in the bilateral upper and lower extremities. There is no palpable cord. negative Homans sign. Muscular compartments are soft. The pelvis is stable.). Absent: pedal edema, calf tenderness - Back Exam Back exam: Present: normal inspection, full ROM. Absent: tenderness, CVA tenderness (R), CVA tenderness (L), paraspinal tenderness, vertebral tenderness - Neurological Exam Neurological exam: Present: alert, other (there is no facial droop. The tongue is midline. The extraocular movements are intact bilaterally. Speaking in full sentences. Minimal elevation of the base of the tongue. There is 5 out of 5 strength in the bilateral upper and lower extremities, and sensation is intact to light touch in the bilateral upper and lower extremities. Appropriate insight.) - Psychiatric Psychiatric exam: Present: normal affect, normal mood - Skin Skin exam: Present: warm, dry, intact, normal color. Absent: rash ED Course - Reevaluation(s) Reevaluation #1: 10/08/19 14:[address] Theodore, general surgeon, who will follow in consultation Hemoglobin and hematocrit from today are appreciated, they are lower than in 2017. This may be chronic, the patient is not tachycardic or especially symptomatically. Gen. surgery is amenable to admission with serial abdominal exams, serial hemoglobin, hematocrit, and following consultation. Reevaluation #2: 10/08/19 15:04 Care will be transferred to the oncoming ER physician, Dr. Payton ARMENTA, to follow up on CT scan results. Plan is to contact the general surgeon Dr Theodore if CT shows significant findings However, if no significant findings noted, general surgery to follow routine consultation, medical team to admit. ED Medical Decision Making - Lab Data Result diagrams: 10/08/19 13:30 10/08/19 13:30 Vital Signs 10/08/19 10/08/19 08:15 11:38 Temperature 97.4 F L 97.4 F L Pulse Rate 48 L 65 Respiratory 14 20 Rate Blood Pressure 115/59 Blood Pressure 116/54 [Left] O2 Sat by Pulse 92 Oximetry Lab Results 10/08/19 10/08/19 10/08/19 Range/Units 08:45 13:30 13:30 WBC 3.5 L (4.5-11.0) K/mm3 RBC 2.03 L (3.65-5.03) M/mm3 Hgb 7.4 L (10.1-14.3) gm/dl Hct 22.2 L (30.3-42.9) % MCV 109 H (79-97) fl MCH 36 H (28-32) pg MCHC 33 (30-34) % RDW 21.3 H (13.2-15.2) % Plt Count 262 (140-440) K/mm3 PT 17.9 H 17.7 H (12.2-14.9) Sec. INR 1.45 H 1.43 H (0.87-1.13) APTT 26.9 (24.2-36.6) Sec. Sodium (137-145) mmol/L Potassium (3.6-5.0) mmol/L Chloride (98-107) mmol/L Carbon Dioxide (22-30) mmol/L Anion Gap mmol/L BUN (7-17) mg/dL Creatinine (0.7-1.2) mg/dL Estimated GFR ml/min BUN/Creatinine Ratio % Glucose (65-100) mg/dL Calcium (8.4-10.2) mg/dL Magnesium (1.7-2.3) mg/dL Total Bilirubin (0.1-1.2) mg/dL AST (5-40) units/L ALT (7-56) units/L Alkaline Phosphatase (35-129) units/L Total Creatine Kinase (30-135) units/L Total Protein (6.3-8.2) g/dL Albumin (3.9-5) g/dL Albumin/Globulin Ratio % 12/13/19 Range/Units 13:30 WBC (4.5-11.0) K/mm3 RBC (3.65-5.03) M/mm3 Hgb (10.1-14.3) gm/dl Hct (30.3-42.9) % MCV (79-97) fl MCH (28-32) pg MCHC (30-34) % RDW (13.2-15.2) % Plt Count (140-440) K/mm3 PT (12.2-14.9) Sec. INR (0.87-1.13) APTT (24.2-36.6) Sec. Sodium 140 (137-145) mmol/L Potassium 3.4 L (3.6-5.0) mmol/L Chloride 103.1 (98-107) mmol/L Carbon Dioxide 24 (22-30) mmol/L Anion Gap 16 mmol/L BUN 9 (7-17) mg/dL Creatinine 1.0 (0.7-1.2) mg/dL Estimated GFR > 60 ml/min BUN/Creatinine Ratio 9 % Glucose 75 (65-100) mg/dL Calcium 8.1 L (8.4-10.2) mg/dL Magnesium 2.20 (1.7-2.3) mg/dL Total Bilirubin 0.50 (0.1-1.2) mg/dL AST 16 (5-40) units/L ALT 6 L (7-56) units/L Alkaline Phosphatase 83 (35-129) units/L Total Creatine Kinase 29 L (30-135) units/L Total Protein 7.0 (6.3-8.2) g/dL Albumin 3.0 L (3.9-5) g/dL Albumin/Globulin Ratio 0.8 % - EKG Data -: EKG Interpreted by Me Rate: bradycardia - EKG Data 10/08/19 14:25 afib bradycardic low voltage - Radiology Data Radiology results: pending ED Disposition Clinical Impression: Hemoperitoneum, Anemia, History of anticoagulant therapy Disposition: OP ADMIT IP TO THIS HOSP Condition: Good <RADHA ARMENTA - Last Filed: 10/08/19 22:00> ED Review of Systems ROS: Stated complaint: Other details as noted in HPI ED Course Vital Signs 10/08/19 10/08/19 10/08/19 08:15 11:38 15:14 Temperature 97.4 F L 97.4 F L Pulse Rate 48 L 65 68 Respiratory 14 20 27 H Rate Blood Pressure 115/59 Blood Pressure 116/54 [Left] O2 Sat by Pulse 92 96 Oximetry 10/08/19 10/08/19 10/08/19 15:16 15:30 15:46 Temperature Pulse Rate 67 65 63 Respiratory 26 H 29 H 26 H Rate Blood Pressure 111/57 103/57 112/60 Blood Pressure [Left] O2 Sat by Pulse 100 97 99 Oximetry 10/08/19 10/08/19 10/08/19 16:00 16:16 16:30 Temperature Pulse Rate Respiratory Rate Blood Pressure 105/56 111/57 116/62 Blood Pressure [Left] O2 Sat by Pulse 98 99 97 Oximetry 10/08/19 10/08/19 10/08/19 16:46 17:00 17:16 Temperature Pulse Rate Respiratory Rate Blood Pressure 113/59 105/60 102/54 Blood Pressure [Left] O2 Sat by Pulse 93 94 99 Oximetry 10/08/19 10/08/19 10/08/19 17:30 17:46 18:18 Temperature Pulse Rate Respiratory Rate Blood Pressure 104/49 104/47 108/46 Blood Pressure [Left] O2 Sat by Pulse 98 98 96 Oximetry 10/08/19 10/08/19 10/08/19 18:30 18:45 19:13 Temperature Pulse Rate Respiratory Rate Blood Pressure 108/46 109/58 108/46 Blood Pressure [Left] O2 Sat by Pulse 97 100 96 Oximetry 10/08/19 10/08/19 10/08/19 19:30 19:45 20:00 Temperature Pulse Rate 105 H 95 H 67 Respiratory 20 12 24 Rate Blood Pressure 102/51 103/57 99/63 Blood Pressure [Left] O2 Sat by Pulse 97 97 96 Oximetry 10/08/19 10/08/19 10/08/19 20:15 20:30 20:45 Temperature Pulse Rate 74 65 Respiratory 25 H 26 H 25 H Rate Blood Pressure 112/52 109/48 104/54 Blood Pressure [Left] O2 Sat by Pulse 96 Oximetry 10/08/19 21:01 Temperature Pulse Rate 65 Respiratory 26 H Rate Blood Pressure 117/45 Blood Pressure [Left] O2 Sat by Pulse Oximetry - Reevaluation(s) Reevaluation #3: 10/08/19 19:20 ct results reviewed. No active bleeding, vitals stable, Dr Theodore did evaluate pt in ed prior to ct. Will contact hospitalist for admission. vital signs stable. ED Medical Decision Making - Lab Data Result diagrams: 10/08/19 13:30 10/08/19 13:30 - Radiology Data Radiology results: report reviewed . CT angio abdomen pelvis INDICATION: hemoperitoneum s/p procedure. TECHNIQUE: All CT scans at this location are performed using CT dose reduction for ALARA by means of automated exposure control. Precontrast localizer images were obtained, followed by axial and 3-dimensional reconstruction images, performed at an independent workstation by the lead nuclear medicine technologist after IV bolus contrast injection. COMPARISON: CT chest abdomen pelvis done earlier today. FINDINGS: The amount of abdominal fluid has decreased markedly since paracentesis performed earlier today, but there is still a moderate amount of fluid in the abdomen and pelvis. CT ANGIOGRAM: Abdominal aorta is unremarkable. Celiac axis, SMA, bilateral renal arteries and LORENA are all patent and normal. Iliac and proximal deep/superficial femoral arteries are normal. The intrahepatic IVC is quite prominent, and portal veins are dilated Focal areas of vascular extravasation or very difficult to differentiate from residual contrast material in the stomach and small bowel, administered for the CT exam done earlier today. I cannot identify a definite acute hemorrhage. IMPRESSION: 1. Abdominal aorta and its major branches appear unremarkable. I cannot identify active hemorrhage. - Medical Decision Making admit order changed to 20:57 since inital order did not cross over in [facility], Dr Barrera to admit. Critical care attestation.: If time is entered above; I have spent that time in minutes in the direct care of this critically ill patient, excluding procedure time. ED Disposition Is pt being admited?: Yes Time of Disposition: 19:28 (Dr Ross/hosp)
[2019-10-08 14:04] LABS: Hematocrit 22.2 % (30.3-42.9); Hemoglobin 7.4 gm/dl (10.1-14.3); Mean Corpuscular HGB Conc 33 % (30-34); Mean Corpuscular Volume 109 fl (79-97); Platelet Count 262 K/mm3 (140-440); Red Blood Count 2.03 M/mm3 (3.65-5.03)
[2019-10-08 14:13] LABS: Red Cell Distribution Width 21.3 % (13.2-15.2)
[2019-10-08 14:15] LABS: INR 1.43 (0.87-1.13)
[2019-10-08 14:16] LABS: Partial Thromboplastin Time 26.9 Sec. (24.2-36.6)
[2019-10-08 14:20] LABS: Alanine Aminotransferase 6 units/L (7-56); BUN/Creatinine Ratio 9; Blood Urea Nitrogen 9 mg/dL (7-17); Calcium 8.1 mg/dL (8.4-10.2); Hemolysis Index 3
[2019-10-08] MEDS ORDERED: POTASSIUM CHLORIDE ER 20 MEQ TAB PO ONE (14:30)
--- NOTE | 2019-10-08 14:46 | Consultation ---
History of Present Illness Consult date: 10/08/19 Reason for consult: other (hemoperitoneum) Chief complaint: sent from radiology for hemoperitoneum on US guided paracentesis. - History of present illness History of present illness: 69 year old female with a history of breast CA, cirrhosis, abdominal acites requiring monthly paracentisis, was sent to ED this morning after hemoperitoneum was found on scheduled US guided paracentesis. She has no complaints, and after looking at previous paracentesis reports this is the first time acitic fluid was found to be bloody. She last took her coumadin 4 days ago and denies any fall or other trauma. Past History Past Medical History: cancer, liver disease, renal failure Past Surgical History: , mastectomy Medications and Allergies Allergies Allergy/AdvReac Type Severity Reaction Status Date / Time grape Allergy Itching Verified 07/02/16 10:13 pineapple Allergy Itching Verified 07/02/16 10:13 Home Medications Medication Instructions Recorded Confirmed Last Taken Type Pravastatin Sodium [Pravastatin] 20 mg PO QHS 08/16/13 09/13/19 09/12/19 History 20 mg Furosemide [Furosemide ORAL LIQ] 40 mg PO DAILY #30 ml 10/30/14 09/13/19 09/12/19 Rx 40 mg Potassium Chloride [K-Dur] 20 meq PO QDAY 02/24/15 09/13/19 09/12/19 History 20 meq Warfarin [Coumadin] 6 mg PO DAILY@1700 02/24/15 09/13/19 09/12/19 History 6 mg Aspirin 325 mg PO ONCE 05/14/16 09/13/19 09/12/19 History 325 mg amLODIPine 10 mg PO DAILY 05/14/16 09/13/19 09/12/19 History 10 mg Lisinopril [Zestril TAB] 2.5 mg PO QDAY #30 tablet 06/13/16 09/13/19 09/12/19 Rx 2.5mg carvediloL [Coreg] 6.25 mg PO BID #60 tablet 06/13/16 09/13/19 09/12/19 Rx 6.25mg Digoxin [Lanoxin] 0.125 mg PO QDAY 08/20/16 09/13/19 09/12/19 History 0.125mg Palbociclib [Ibrance] 125 mg PO QDAY 06/26/17 09/13/19 09/12/19 History 125 mg Review of Systems - Cardiovascular no chest pain - Respiratory no shortness of breath - Gastrointestinal no abdominal pain, no nausea, no vomiting Exam Vital Signs Temp Pulse Resp BP 97.4 F L 48 L 14 116/54 10/08/19 08:15 10/08/19 08:15 10/08/19 08:15 10/08/19 08:15 - General physical appearance Positive: no distress - Respiratory Positive: normal respiratory effort - Extremities Extremities: no ischemia - Abdomen Abdomen: Present: soft. Absent: tender, distended Results - Labs 10/08/19 13:30 10/08/19 13:30 Abnormal lab results 10/08/19 10/08/19 10/08/19 Range/Units 08:45 13:30 13:30 WBC 3.5 L (4.5-11.0) K/mm3 RBC 2.03 L (3.65-5.03) M/mm3 Hgb 7.4 L (10.1-14.3) gm/dl Hct 22.2 L (30.3-42.9) % MCV 109 H (79-97) fl MCH 36 H (28-32) pg RDW 21.3 H (13.2-15.2) % PT 17.9 H 17.7 H (12.2-14.9) Sec. INR 1.45 H 1.43 H (0.87-1.13) Potassium (3.6-5.0) mmol/L Calcium (8.4-10.2) mg/dL ALT (7-56) units/L Total Creatine Kinase (30-135) units/L Albumin (3.9-5) g/dL 10/08/19 Range/Units 13:30 WBC (4.5-11.0) K/mm3 RBC (3.65-5.03) M/mm3 Hgb (10.1-14.3) gm/dl Hct (30.3-42.9) % MCV (79-97) fl MCH (28-32) pg RDW (13.2-15.2) % PT (12.2-14.9) Sec. INR (0.87-1.13) Potassium 3.4 L (3.6-5.0) mmol/L Calcium 8.1 L (8.4-10.2) mg/dL ALT 6 L (7-56) units/L Total Creatine Kinase 29 L (30-135) units/L Albumin 3.0 L (3.9-5) g/dL Diabetes panel 10/08/19 Range/Units 13:30 Sodium 140 (137-145) mmol/L Potassium 3.4 L (3.6-5.0) mmol/L Chloride 103.1 (98-107) mmol/L Carbon Dioxide 24 (22-30) mmol/L BUN 9 (7-17) mg/dL Creatinine 1.0 (0.7-1.2) mg/dL Glucose 75 (65-100) mg/dL Calcium 8.1 L (8.4-10.2) mg/dL AST 16 (5-40) units/L ALT 6 L (7-56) units/L Alkaline Phosphatase 83 (35-129) units/L Total Protein 7.0 (6.3-8.2) g/dL Albumin 3.0 L (3.9-5) g/dL Calcium panel 10/08/19 Range/Units 13:30 Calcium 8.1 L (8.4-10.2) mg/dL Albumin 3.0 L (3.9-5) g/dL Pituitary panel 10/08/19 Range/Units 13:30 Sodium 140 (137-145) mmol/L Potassium 3.4 L (3.6-5.0) mmol/L Chloride 103.1 (98-107) mmol/L Carbon Dioxide 24 (22-30) mmol/L BUN 9 (7-17) mg/dL Creatinine 1.0 (0.7-1.2) mg/dL Glucose 75 (65-100) mg/dL Calcium 8.1 L (8.4-10.2) mg/dL Adrenal panel 10/08/19 Range/Units 13:30 Sodium 140 (137-145) mmol/L Potassium 3.4 L (3.6-5.0) mmol/L Chloride 103.1 (98-107) mmol/L Carbon Dioxide 24 (22-30) mmol/L BUN 9 (7-17) mg/dL Creatinine 1.0 (0.7-1.2) mg/dL Glucose 75 (65-100) mg/dL Calcium 8.1 L (8.4-10.2) mg/dL Total Bilirubin 0.50 (0.1-1.2) mg/dL AST 16 (5-40) units/L ALT 6 L (7-56) units/L Alkaline Phosphatase 83 (35-129) units/L Total Protein 7.0 (6.3-8.2) g/dL Albumin 3.0 L (3.9-5) g/dL - Imaging CT scan - abdomen: pending (CTA abdomen/pelvis pending) Assessment and Plan 69 year old female with chronic ascities and monthly paracentesis found to have hemoperitonium on scheduled aspiration. Stable, clinically asymptomatic, with anemia (unknown at this time how significant since last Hb was 10 over 2 years ago). Unlikely exanguinating since 6L of fluid was removed and she remains hemodynamically stable. Will f/u CTA to see if there is some extra-vascular extravasation in which case IR consultation should be considered for exact vessel control. Trend H/H, IV hydration, avoid anticoagulation. will continue to follow.
--- NOTE | 2019-10-08 19:15 | Cat Scan Report ---
. CT angio abdomen pelvis INDICATION: hemoperitoneum s/p procedure. TECHNIQUE: All CT scans at this location are performed using CT dose reduction for ALARA by means of automated e xposure control. Precontrast localizer images were obtained, followed by axial and 3-dimensional reconstruction images , performed at an independent workstation by the radiology ct technologist after IV bolus contrast injection. COMPARISON: CT chest abdomen pelvis done earlier today. FINDINGS: The amount of abdominal fluid has decreased markedly since paracentesis performed earlier today, but there is still a moderate amount of fluid in the abdomen and pelvis. CT ANGIOGRAM: Abdominal aorta is unremarkable. Celiac axis, SMA, bilateral renal arteries and LORENA are all patent an d normal. Iliac and proximal deep/superficial femoral arteries are normal. The intrahepatic IVC is qu ite prominent, and portal veins are dilated Focal areas of vascular extravasation or very difficult to differentiate from residual contrast mater ial in the stomach and small bowel, administered for the CT exam done earlier today. I cannot identif y a definite acute hemorrhage. IMPRESSION: 1. Abdominal aorta and its major branches appear unremarkable. I cannot identify active hemorrhage. Signer Name: Srikanth Marcos MD Signed: 10/08/2019 7:11 PM Workstation Name: [id number]
[2019-10-08] MEDS: HYDROmorphone 1 MG/1 ML INJ IV ONE ×2 (20:24→20:35)
[2019-10-08 21:19] LABS: Total Cells Counted 100 /mm3
[2019-10-08] MEDS ORDERED: MAGNESIUM HYDROXIDE (MOM) ORAL LIQD UDC PO PRN (22:03)
[2019-10-08] MEDS ORDERED: ONDANSETRON 4 MG/2 ML INJ IV PRN (22:03)
[2019-10-08] MEDS ORDERED: MORPHINE 2 MG/1 ML INJ IV PRN (22:03)
[2019-10-08] MEDS ORDERED: ACETAMINOPHEN 325 MG TAB PO PRN (22:03)
--- NOTE | 2019-10-09 01:25 | History and Physical Report ---
History of Present Illness Date of examination: 10/08/19 Date of admission: 10/08/19 20:57 Chief complaint: Ascites History of present illness: 69-year-old -[place] female with known history of breast cancer status post mastectomy and chemotherapy with recurrent pleural effusion and ascites, history of hypertension, coronary artery disease and atrial fibrillation. She was seen for paracentesis and she was found to have a bloody tap. CT abdomen and pelvis did not reveal significant findings for the hemoperitoneum. She denies any fever or chills, no nausea vomiting, denies any abdominal pain, denies any diarrhea or constipation, no chest pain or shortness of breath. Patient is on chronic anticoagulation. She has been admitted for hemoperitoneum General surgeon Dr. Theodore has been notified by the ER physician. Labs including CBC will be monitored. Past History Past Medical History: atrial fib, cancer, liver disease, renal failure, other (History of glaucoma) Past Surgical History: , mastectomy Social history: no significant social history Family history: cancer (Lung cancer in father), hypertension (Hypertension Father, hypertension and heart disease in mother) Medications and Allergies Allergies Allergy/AdvReac Type Severity Reaction Status Date / Time grape Allergy Itching Verified 07/02/16 10:13 pineapple Allergy Itching Verified 07/02/16 10:13 Home Medications Medication Instructions Recorded Confirmed Last Taken Type Pravastatin Sodium [Pravastatin] 20 mg PO QHS 08/16/13 10/08/19 09/12/19 History 20 mg Furosemide [Furosemide ORAL LIQ] 40 mg PO DAILY #30 ml 10/30/14 10/08/19 09/12/19 Rx 40 mg Potassium Chloride [K-Dur] 20 meq PO QDAY 02/24/15 10/08/19 09/12/19 History 20 meq Warfarin [Coumadin] 5 mg PO DAILY@1700 02/24/15 10/08/19 09/12/19 History 6 mg Aspirin 325 mg PO ONCE 05/14/16 10/08/19 09/12/19 History 325 mg Digoxin [Lanoxin] 0.125 mg PO QDAY 08/20/16 10/08/19 09/12/19 History 0.125mg Palbociclib [Ibrance] 125 mg PO QDAY 06/26/17 10/08/19 09/12/19 History 125 mg Lisinopril [Zestril TAB] 20 mg PO QDAY 10/08/19 10/08/19 Unknown History carvediloL [Coreg] 25 mg PO QDAY 10/08/19 10/08/19 Unknown History Active Meds: Active Medications Acetaminophen (Tylenol) 650 mg PO Q4H PRN PRN Reason: Pain MILD(1-3)/Fever >100.5/DICKINSON Magnesium Hydroxide (Milk Of Magnesia) 30 ml PO Q4H PRN PRN Reason: Constipation Morphine Sulfate (Morphine) 2 mg IV Q4H PRN PRN Reason: Pain, Moderate (4-6) Ondansetron HCl (Zofran) 4 mg IV Q8H PRN PRN Reason: Nausea And Vomiting Sodium Chloride (Sodium Chloride Flush Syringe 10 Ml) 10 ml IV BID RAPHAEL Sodium Chloride (Sodium Chloride Flush Syringe 10 Ml) 10 ml IV PRN PRN PRN Reason: LINE FLUSH Review of Systems Gastrointestinal: other (Abdominal distention with ascites) Exam - Constitutional Vitals: Temp Pulse Resp BP Pulse Ox 97.8 F 56 L 14 113/88 99 10/08/19 22:25 10/09/19 00:23 10/09/19 00:00 10/09/19 00:00 10/09/19 00:23 General appearance: Present: no acute distress, well-nourished - EENT Eyes: Present: PERRL, EOM intact ENT: hearing intact, clear oral mucosa, dentition normal - Neck Neck: Present: supple, normal ROM - Respiratory Respiratory effort: normal Respiratory: right: rales - Cardiovascular Rhythm: regular Heart Sounds: Present: S1 & S2, systolic murmur - Extremities Extremities: no ischemia, pulses intact, pulses symmetrical, No edema, Full ROM Peripheral Pulses: within normal limits - Abdominal General gastrointestinal: Present: soft, non-tender, distended - Integumentary Integumentary: Present: clear, warm, dry - Musculoskeletal Musculoskeletal: strength equal bilaterally - Psychiatric Psychiatric: appropriate mood/affect, intact judgment & insight, cooperative - Neurologic Neurologic: CNII-XII intact, moves all extremities Results - Labs CBC & Chem 7: 10/08/19 13:30 10/08/19 13:30 Labs: Abnormal lab results 10/08/19 10/08/19 10/08/19 Range/Units 08:45 13:30 13:30 WBC 3.5 L (4.5-11.0) K/mm3 RBC 2.03 L (3.65-5.03) M/mm3 Hgb 7.4 L (10.1-14.3) gm/dl Hct 22.2 L (30.3-42.9) % MCV 109 H (79-97) fl MCH 36 H (28-32) pg RDW 21.3 H (13.2-15.2) % PT 17.9 H 17.7 H (12.2-14.9) Sec. INR 1.45 H 1.43 H (0.87-1.13) Potassium (3.6-5.0) mmol/L Calcium (8.4-10.2) mg/dL ALT (7-56) units/L Total Creatine Kinase (30-135) units/L Albumin (3.9-5) g/dL 12// Range/Units 13:30 WBC (4.5-11.0) K/mm3 RBC (3.65-5.03) M/mm3 Hgb (10.1-14.3) gm/dl Hct (30.3-42.9) % MCV (79-97) fl MCH (28-32) pg RDW (13.2-15.2) % PT (12.2-14.9) Sec. INR (0.87-1.13) Potassium 3.4 L (3.6-5.0) mmol/L Calcium 8.1 L (8.4-10.2) mg/dL ALT 6 L (7-56) units/L Total Creatine Kinase 29 L (30-135) units/L Albumin 3.0 L (3.9-5) g/dL Assessment and Plan - Patient Problems (1) Hemoperitoneum Current Visit: Yes Status: Acute Plan to address problem: Patient will be closely monitored. General surgeon will be following up on patient. We will also monitor CBC. (2) Anemia Current Visit: Yes Status: Acute Plan to address problem: Probably chronic. We will monitor CBC (3) Atrial fibrillation Current Visit: No Status: Chronic Plan to address problem: Rate is controlled. Patient is on chronic anticoagulation. (4) Breast cancer Current Visit: No Status: Chronic Plan to address problem: She is status post right mastectomy and chemotherapy in the past. She has had recurrent pleural effusion and ascites. (5) Hypertension Current Visit: No Status: Chronic Plan to address problem: Blood pressure remained stable. We will continue routine home medications once reconciled. Will monitor vital signs closely. (6) DVT prophylaxis Current Visit: No Status: Acute Plan to address problem: Patient on anticoagulation. (7) Full code status Current Visit: Yes Status: Acute
[2019-10-09] MEDS ORDERED: ASPIRIN 325 MG TAB PO ONE (05:00)
[2019-10-09 07:34] LABS: Basophils # (Auto) 0.1 K/mm3 (0.0-0.1); Basophils % (Auto) 2.5 % (0.0-1.8); Eosinophils # (Auto) 0.1 K/mm3 (0.0-0.4); Eosinophils % (Auto) 2.3 % (0.0-4.3); Hematocrit 24.3 % (30.3-42.9); Hemoglobin 7.8 gm/dl (10.1-14.3); Lymphocytes # (Auto) 0.8 K/mm3 (1.2-5.4); Lymphocytes % (Auto) 29.6 % (13.4-35.0); Mean Corpuscular HGB Conc 32 % (30-34); Monocytes # (Auto) 0.2 K/mm3 (0.0-0.8); Monocytes % (Auto) 7.8 % (0.0-7.3); Platelet Count 266 K/mm3 (140-440); Red Blood Count 2.16 M/mm3 (3.65-5.03)
[2019-10-09 07:35] LABS: Mean Corpuscular Volume 112 fl (79-97)
[2019-10-09 07:45] LABS: BUN/Creatinine Ratio 11; Blood Urea Nitrogen 10 mg/dL (7-17); Calcium 8.1 mg/dL (8.4-10.2); Hemolysis Index 211; INR 1.33 (0.87-1.13)
[2019-10-09 07:49] LABS: Partial Thromboplastin Time 27.5 Sec. (24.2-36.6)
[2019-10-09] MEDS: POTASSIUM CHLORIDE ER 20 MEQ TAB PO SCH (09:20)
[2019-10-09] MEDS: LISINOPRIL 20 MG TAB PO SCH (09:23)
[2019-10-09] MEDS: carvediloL 25 MG TAB PO SCH (09:24)
--- NOTE | 2019-10-09 11:05 | Progress Note ---
Assessment and Plan Assessment and plan: Hemoperitoneum Patient will be closely monitored. General surgeon will be following up on patient. We will also monitor CBC. Anemia Probably chronic. We will monitor CBC Atrial fibrillation Rate is controlled. Patient is on chronic anticoagulation. Hold anticoagulation for now. Breast cancer She is status post right mastectomy and chemotherapy in the past. She has had recurrent pleural effusion and ascites. Hypertension Blood pressure remained stable. We will continue routine home medications once reconciled. Will monitor vital signs closely. DVT prophylaxis Patient on anticoagulation. Full code status History Interval history: No new issues overnight. Hospitalist Physical - Constitutional Vitals: Temp Pulse Resp BP Pulse Ox 98.2 F 55 L 20 114/59 100 10/09/19 07:46 10/09/19 09:23 10/09/19 08:22 10/09/19 09:23 10/09/19 08:22 General appearance: Present: no acute distress, well-nourished - EENT Eyes: Present: PERRL, EOM intact ENT: hearing intact, clear oral mucosa, dentition normal - Neck Neck: Present: supple, normal ROM - Respiratory Respiratory effort: normal Respiratory: bilateral: CTA - Cardiovascular Rhythm: regular Heart Sounds: Present: S1 & S2. Absent: gallop, rub - Extremities Extremities: no ischemia, No edema, Full ROM - Abdominal General gastrointestinal: soft, non-tender, non-distended, normal bowel sounds - Integumentary Integumentary: Present: clear, warm, dry - Neurologic Neurologic: CNII-XII intact, moves all extremities Results - Labs CBC & Chem 7: 10/09/19 07:00 10/09/19 07:00 Labs: Laboratory Last Values WBC 2.8 K/mm3 (4.5-11.0) L 10/09/19 07:00 RBC 2.16 M/mm3 (3.65-5.03) L 10/09/19 07:00 Hgb 7.8 gm/dl (10.1-14.3) L 10/09/19 07:00 Hct 24.3 % (30.3-42.9) L 10/09/19 07:00 MCV 112 fl (79-97) H 10/09/19 07:00 MCH 36 pg (28-32) H 10/09/19 07:00 MCHC 32 % (30-34) 10/09/19 07:00 RDW 22.0 % (13.2-15.2) H 10/09/19 07:00 Plt Count 266 K/mm3 (140-440) 10/09/19 07:00 Lymph % (Auto) 29.6 % (13.4-35.0) 10/09/19 07:00 [place] % (Auto) 7.8 % (0.0-7.3) H 10/09/19 07:00 Eos % (Auto) 2.3 % (0.0-4.3) 10/09/19 07:00 Baso % (Auto) 2.5 % (0.0-1.8) H 10/09/19 07:00 Lymph # 0.8 K/mm3 (1.2-5.4) L 10/09/19 07:00 [place] # 0.2 K/mm3 (0.0-0.8) 10/09/19 07:00 Eos # 0.1 K/mm3 (0.0-0.4) 10/09/19 07:00 Baso # 0.1 K/mm3 (0.0-0.1) 10/09/19 07:00 Seg Neutrophils % 57.8 % (40.0-70.0) 10/09/19 07:00 Seg Neutrophils # 1.6 K/mm3 (1.8-7.7) L 10/09/19 07:00 PT 16.7 Sec. (12.2-14.9) H 10/09/19 07:00 INR 1.33 (0.87-1.13) H 10/09/19 07:00 APTT 27.5 Sec. (24.2-36.6) 10/09/19 07:00 Sodium 144 mmol/L (137-145) 10/09/19 07:00 Potassium 5.3 mmol/L (3.6-5.0) H D 10/09/19 07:00 Chloride 108.8 mmol/L (98-107) H 10/09/19 07:00 Carbon Dioxide 21 mmol/L (22-30) L 10/09/19 07:00 Anion Gap 20 mmol/L 10/09/19 07:00 BUN 10 mg/dL (7-17) 10/09/19 07:00 Creatinine 0.9 mg/dL (0.7-1.2) 10/09/19 07:00 Estimated GFR > 60 ml/min 10/09/19 07:00 BUN/Creatinine Ratio 11 % 10/09/19 07:00 Glucose 81 mg/dL (65-100) 10/09/19 07:00 Calcium 8.1 mg/dL (8.4-10.2) L 10/09/19 07:00 Magnesium 2.20 mg/dL (1.7-2.3) 10/08/19 13:30 Total Bilirubin 0.50 mg/dL (0.1-1.2) 10/08/19 13:30 AST 16 units/L (5-40) 10/08/19 13:30 ALT 6 units/L (7-56) L 10/08/19 13:30 Alkaline Phosphatase 83 units/L (35-129) 10/08/19 13:30 Total Creatine Kinase 29 units/L (30-135) L 10/08/19 13:30 Total Protein 7.0 g/dL (6.3-8.2) 10/08/19 13:30 Albumin 3.0 g/dL (3.9-5) L 10/08/19 13:30 Albumin/Globulin Ratio 0.8 % 10/08/19 13:30 Fluid Type Paracentesis 10/08/19 Unknown Fluid Color Red 10/08/19 Unknown Fluid Appearance Bloody 10/08/19 Unknown Fluid WBC 55 /mm3 10/08/19 Unknown Fluid RBC 855289 /mm3 10/08/19 Unknown Fluid Seg Neutrophils 6.0 % 10/08/19 Unknown Fluid Lymphocytes 13.0 % 10/08/19 Unknown Fluid Reactive Lymphs 0 % 10/08/19 Unknown Fluid Monocytes 81.0 % 10/08/19 Unknown Fluid Eosinophils 0 % 10/08/19 Unknown Fluid Basophils 0 % 10/08/19 Unknown Fluid Comment Diff performed 10/08/19 Unknown Active Medications - Current Medications Current Medications: Generic Name Dose Route Start Last Admin Trade Name Freq PRN Reason Stop Dose Admin Acetaminophen 650 mg 10/08/19 22:03 Tylenol PO Q4H PRN Pain MILD(1-3)/Fever >100.5/DICKINSON Carvedilol 25 mg 10/09/19 10:00 10/09/19 09:24 Coreg PO 25 mg QDAY RAPHAEL Administration Digoxin 0.125 mg 10/09/19 17:00 Lanoxin PO QDAY@1700 REPLACED BY [facility] Lisinopril 20 mg 10/09/19 10:00 10/09/19 09:23 Zestril PO Not Given QDAY REPLACED BY [facility] Magnesium Hydroxide 30 ml 10/08/19 22:03 Milk Of Magnesia PO Q4H PRN Constipation Morphine Sulfate 2 mg 10/08/19 22:03 Morphine IV Q4H PRN Pain, Moderate (4-6) Ondansetron HCl 4 mg 10/08/19 22:03 Zofran IV Q8H PRN Nausea And Vomiting Potassium Chloride 20 meq 10/09/19 10:00 10/09/19 09:20 K-Dur PO 20 meq QDAY REPLACED BY [facility] Administration Pravastatin Sodium 20 mg 10/09/19 22:00 Pravachol PO QHS REPLACED BY [facility] Sodium Chloride 10 ml 10/09/19 10:00 10/09/19 09:21 Sodium Chloride Flush Syringe 10 Ml IV 10 ml BID RAPHAEL Administration Sodium Chloride 10 ml 10/08/19 22:03 Sodium Chloride Flush Syringe 10 Ml IV PRN PRN LINE FLUSH
--- NOTE | 2019-10-09 11:08 | Progress Note ---
Assessment and Plan hemoperitoneum of unclear etiology. Potentially may have had some sort of bleeding between the last paracentesis and the one yesterday that stopped on its own, however visible and contaminated the ascites that was aspirated. CTA of abdomen/pelvis was negative for obvious active bleed. She remains hemodynamically stable with a stable H/H, making significant active hemorrhage unlikely. No surgical intervention planned. ok to start diet. Subjective Date of service: 10/09/19 Patient Reports: Positive: no new complaints (No acute events overnight, pt denies pain and says she wants to go home) Objective Vital Signs - 12hr 10/08/19 10/08/19 10/09/19 23:54 23:57 00:00 Temperature Pulse Rate 92 H Respiratory 20 14 Rate Blood Pressure 131/90 113/88 O2 Sat by Pulse 99 99 Oximetry 10/09/19 10/09/19 10/09/19 00:22 00:23 02:00 Temperature 98.4 F Pulse Rate 53 L 56 L 64 Respiratory 20 Rate Blood Pressure 113/53 O2 Sat by Pulse 99 99 99 Oximetry 10/09/19 10/09/19 10/09/19 07:46 08:22 09:23 Temperature 98.2 F Pulse Rate 71 55 L Respiratory 20 20 Rate Blood Pressure 105/61 114/59 O2 Sat by Pulse 100 100 Oximetry - General physical appearance no distress, cathetic - Respiratory normal expansion, normal respiratory effort - Abdomen soft, not tender - Labs 10/09/19 07:00 10/09/19 07:00 Diabetes panel 10/08/19 10/09/19 Range/Units 13:30 07:00 Sodium 140 144 (137-145) mmol/L Potassium 3.4 L 5.3 H D (3.6-5.0) mmol/L Chloride 103.1 108.8 H (98-107) mmol/L Carbon Dioxide 24 21 L (22-30) mmol/L BUN 9 10 (7-17) mg/dL Creatinine 1.0 0.9 (0.7-1.2) mg/dL Glucose 75 81 (65-100) mg/dL Calcium 8.1 L 8.1 L (8.4-10.2) mg/dL AST 16 (5-40) units/L ALT 6 L (7-56) units/L Alkaline Phosphatase 83 (35-129) units/L Total Protein 7.0 (6.3-8.2) g/dL Albumin 3.0 L (3.9-5) g/dL Calcium panel 10/08/19 10/09/19 Range/Units 13:30 07:00 Calcium 8.1 L 8.1 L (8.4-10.2) mg/dL Albumin 3.0 L (3.9-5) g/dL Pituitary panel 10/08/19 10/09/19 Range/Units 13:30 07:00 Sodium 140 144 (137-145) mmol/L Potassium 3.4 L 5.3 H D (3.6-5.0) mmol/L Chloride 103.1 108.8 H (98-107) mmol/L Carbon Dioxide 24 21 L (22-30) mmol/L BUN 9 10 (7-17) mg/dL Creatinine 1.0 0.9 (0.7-1.2) mg/dL Glucose 75 81 (65-100) mg/dL Calcium 8.1 L 8.1 L (8.4-10.2) mg/dL Adrenal panel 10/08/19 10/09/19 Range/Units 13:30 07:00 Sodium 140 144 (137-145) mmol/L Potassium 3.4 L 5.3 H D (3.6-5.0) mmol/L Chloride 103.1 108.8 H (98-107) mmol/L Carbon Dioxide 24 21 L (22-30) mmol/L BUN 9 10 (7-17) mg/dL Creatinine 1.0 0.9 (0.7-1.2) mg/dL Glucose 75 81 (65-100) mg/dL Calcium 8.1 L 8.1 L (8.4-10.2) mg/dL Total Bilirubin 0.50 (0.1-1.2) mg/dL AST 16 (5-40) units/L ALT 6 L (7-56) units/L Alkaline Phosphatase 83 (35-129) units/L Total Protein 7.0 (6.3-8.2) g/dL Albumin 3.0 L (3.9-5) g/dL
[2019-10-09] MEDS ORDERED: FLU VACC QUAD 2019-20 (3 YR UP)/PF 60 MCG/0.5 ML SYRINGE IM ONE (12:00)
[2019-10-09] MEDS: DIGOXIN 0.125 MG TAB PO SCH (18:13)
[2019-10-09] MEDS: PRAVASTATIN 20 MG TAB PO SCH (21:00)
[2019-10-10 04:24] LABS: Basophils # (Auto) 0.1 K/mm3 (0.0-0.1); Basophils % (Auto) 2.1 % (0.0-1.8); Eosinophils # (Auto) 0.1 K/mm3 (0.0-0.4); Eosinophils % (Auto) 2.6 % (0.0-4.3); Hematocrit 23.3 % (30.3-42.9); Hemoglobin 7.7 gm/dl (10.1-14.3); Lymphocytes # (Auto) 0.8 K/mm3 (1.2-5.4); Lymphocytes % (Auto) 27.6 % (13.4-35.0); Mean Corpuscular HGB Conc 33 % (30-34); Mean Corpuscular Volume 112 fl (79-97); Monocytes # (Auto) 0.2 K/mm3 (0.0-0.8); Monocytes % (Auto) 6.8 % (0.0-7.3); Platelet Count 243 K/mm3 (140-440); Red Blood Count 2.08 M/mm3 (3.65-5.03)
[2019-10-10 04:25] LABS: Red Cell Distribution Width 21.5 % (13.2-15.2)
[2019-10-10 04:49] LABS: BUN/Creatinine Ratio 13; Blood Urea Nitrogen 9 mg/dL (7-17); Hemolysis Index 2
[2019-10-10] MEDS: carvediloL 25 MG TAB PO SCH (09:54)
[2019-10-10] MEDS: POTASSIUM CHLORIDE ER 20 MEQ TAB PO SCH (09:54)
[2019-10-10] MEDS: LISINOPRIL 20 MG TAB PO SCH (09:55)
--- NOTE | 2019-10-10 09:55 | Progress Note ---
Assessment and Plan Assessment and plan: Hemoperitoneum Patient will be closely monitored. General surgeon will be following up on patient. We will also monitor CBC. Anemia Probably chronic. We will monitor CBC Atrial fibrillation Rate is controlled. Patient is on chronic anticoagulation. Restart Coumadin today and if no evidence of bleeding and stable H&H patient will likely DC in a.m. Breast cancer She is status post right mastectomy and chemotherapy in the past. She has had recurrent pleural effusion and ascites. Hypertension Blood pressure remained stable. We will continue routine home medications once reconciled. Will monitor vital signs closely. DVT prophylaxis Patient on anticoagulation. Full code status History Interval history: No new issues overnight. Hospitalist Physical - Constitutional Vitals: Temp Pulse Resp BP Pulse Ox 98.6 F 66 18 102/56 100 10/10/19 07:44 10/10/19 08:00 10/10/19 08:00 10/10/19 07:44 10/10/19 08:00 General appearance: Present: no acute distress, well-nourished Results - Labs CBC & Chem 7: 10/10/19 04:03 10/10/19 04:03 Labs: Laboratory Last Values WBC 2.7 K/mm3 (4.5-11.0) L 10/10/19 04:03 RBC 2.08 M/mm3 (3.65-5.03) L 10/10/19 04:03 Hgb 7.7 gm/dl (10.1-14.3) L 10/10/19 04:03 Hct 23.3 % (30.3-42.9) L 10/10/19 04:03 MCV 112 fl (79-97) H 10/10/19 04:03 MCH 37 pg (28-32) H 10/10/19 04:03 MCHC 33 % (30-34) 10/10/19 04:03 RDW 21.5 % (13.2-15.2) H 10/10/19 04:03 Plt Count 243 K/mm3 (140-440) 10/10/19 04:03 Lymph % (Auto) 27.6 % (13.4-35.0) 10/10/19 04:03 [place] % (Auto) 6.8 % (0.0-7.3) 10/10/19 04:03 Eos % (Auto) 2.6 % (0.0-4.3) 10/10/19 04:03 Baso % (Auto) 2.1 % (0.0-1.8) H 10/10/19 04:03 Lymph # 0.8 K/mm3 (1.2-5.4) L 10/10/19 04:03 [place] # 0.2 K/mm3 (0.0-0.8) 10/10/19 04:03 Eos # 0.1 K/mm3 (0.0-0.4) 10/10/19 04:03 Baso # 0.1 K/mm3 (0.0-0.1) 10/10/19 04:03 Seg Neutrophils % 60.9 % (40.0-70.0) 10/10/19 04:03 Seg Neutrophils # 1.7 K/mm3 (1.8-7.7) L 10/10/19 04:03 PT 16.7 Sec. (12.2-14.9) H 10/09/19 07:00 INR 1.33 (0.87-1.13) H 10/09/19 07:00 APTT 27.5 Sec. (24.2-36.6) 10/09/19 07:00 Sodium 139 mmol/L (137-145) 10/10/19 04:03 Potassium 4.2 mmol/L (3.6-5.0) D 10/10/19 04:03 Chloride 105.4 mmol/L (98-107) 10/10/19 04:03 Carbon Dioxide 24 mmol/L (22-30) 10/10/19 04:03 Anion Gap 14 mmol/L 10/10/19 04:03 BUN 9 mg/dL (7-17) 10/10/19 04:03 Creatinine 0.7 mg/dL (0.7-1.2) 10/10/19 04:03 Estimated GFR > 60 ml/min 10/10/19 04:03 BUN/Creatinine Ratio 13 % 10/10/19 04:03 Glucose 89 mg/dL (65-100) 10/10/19 04:03 Calcium 8.0 mg/dL (8.4-10.2) L 10/10/19 04:03 Magnesium 2.20 mg/dL (1.7-2.3) 10/08/19 13:30 Total Bilirubin 0.50 mg/dL (0.1-1.2) 10/08/19 13:30 AST 16 units/L (5-40) 10/08/19 13:30 ALT 6 units/L (7-56) L 10/08/19 13:30 Alkaline Phosphatase 83 units/L (35-129) 10/08/19 13:30 Total Creatine Kinase 29 units/L (30-135) L 10/08/19 13:30 Total Protein 7.0 g/dL (6.3-8.2) 10/08/19 13:30 Albumin 3.0 g/dL (3.9-5) L 10/08/19 13:30 Albumin/Globulin Ratio 0.8 % 10/08/19 13:30 Fluid Type Paracentesis 10/08/19 Unknown Fluid Color Red 10/08/19 Unknown Fluid Appearance Bloody 10/08/19 Unknown Fluid WBC 55 /mm3 10/08/19 Unknown Fluid RBC 083823 /mm3 10/08/19 Unknown Fluid Seg Neutrophils 6.0 % 10/08/19 Unknown Fluid Lymphocytes 13.0 % 10/08/19 Unknown Fluid Reactive Lymphs 0 % 10/08/19 Unknown Fluid Monocytes 81.0 % 10/08/19 Unknown Fluid Eosinophils 0 % 10/08/19 Unknown Fluid Basophils 0 % 10/08/19 Unknown Fluid Comment Diff performed 10/08/19 Unknown Active Medications - Current Medications Current Medications: Generic Name Dose Route Start Last Admin Trade Name Freq PRN Reason Stop Dose Admin Acetaminophen 650 mg 10/08/19 22:03 Tylenol PO Q4H PRN Pain MILD(1-3)/Fever >100.5/DCIKINSON Carvedilol 25 mg 10/09/19 10:00 10/09/19 09:24 Coreg PO 25 mg QDAY RAPHAEL Administration Digoxin 0.125 mg 10/09/19 17:00 10/09/19 18:13 Lanoxin PO Not Given QDAY@1700 RAPHAEL Lisinopril 20 mg 10/09/19 10:00 10/09/19 09:23 Zestril PO Not Given QDAY RAPHAEL Magnesium Hydroxide 30 ml 10/08/19 22:03 Milk Of Magnesia PO Q4H PRN Constipation Morphine Sulfate 2 mg 10/08/19 22:03 Morphine IV Q4H PRN Pain, Moderate (4-6) Ondansetron HCl 4 mg 10/08/19 22:03 Zofran IV Q8H PRN Nausea And Vomiting Potassium Chloride 20 meq 10/09/19 10:00 10/09/19 09:20 K-Dur PO 20 meq QDAY RAPHAEL Administration Pravastatin Sodium 20 mg 10/09/19 22:00 10/09/19 21:00 Pravachol PO 20 mg QHS RAPHAEL Administration Sodium Chloride 10 ml 10/09/19 10:00 10/09/19 21:00 Sodium Chloride Flush Syringe 10 Ml IV 10 ml BID RAPHAEL Administration Sodium Chloride 10 ml 10/08/19 22:03 Sodium Chloride Flush Syringe 10 Ml IV PRN PRN LINE FLUSH Nutrition/Malnutrition Assess - Dietary Evaluation Nutrition/Malnutrition Findings: Nutrition Notes Start: 10/09/19 11:25 Freq: Status: Active Protocol: Document 10/09/19 11:25 (Rec: 10/09/19 11:41 [id number]) Nutrition Notes Need for Assessment generated from: MST Initial or Follow up Assessment Current Diagnosis Hypertension,Heart Failure Other Pertinent Diagnosis h/o breast CA, recurrent pleural effusions Current Diet Cardiac diet with Ensure Enlive BID Labs/Tests K: 5.3 Pertinent Medications reviewed Height 5 ft 4 in Weight 42 kg [place] Body Weight (kg) 54.54 BMI 15.9 Weight change and time frame Pt stated she has lost 20# over the "past several years" r/t poor appetite. RD observed significant fat and muscle wasting. Pt denied wt loss in the past year Weight Status Emaciated Subjective/Other Information Pt screened for MST. Pt stated her appetite varies, but was overall poor [place]. She usually eats breakfast in the morning and snacks for the rest of the day. This morning pt stated she ate eggs, toast, and drank orange juice and coffee (~50% ). Pt stated she experienced N /V "last month on the ," but this has since resolved. Pt agreed to try Nepro daily until high potassium levels are resolved. Percent of energy/protein needs met: 72%/82% Burn Absent Trauma Absent GI Symptoms None Current % PO Poor (25-49%) Minimum of two criteria Yes Body Fat Depletion Moderate depletion (severe) Muscle Mass Moderate Depletion (severe) #1 Nutrition Diagnosis Malnutrition Etiology Poor PO intake secondary to poor appetite As Evidenced by Signs and Symptoms Moderate muscle and fat tissue wasting Is patient on ventilator? No Is Patient Ambulatory and/or Out of Bed No REE-([facility]-confined to bed) 1110.312 Kcal/Kg value to use for calculation 35 Approximate Energy Requirements Using 1470 kcal/Kg Calculation Used for Recommendations Kcal/kg Additional Notes Pro needs: 50-63g/day (1.2-1.5 g/kg) Fluid needs: 1 ml/kcal or per MD Nutrition Intervention Change Diet Order: Continue Cardiac Diet Add Supplement/Snack (indicate name/kcal Nepro butter pecan daily /protein ) Provides kCal: 425 Provides Protein (gm) 19 Goal #1 Pt to meet at least 90% of energy and protein needs via PO and ONS intakes Anticipated Discharge Needs: Cardiac diet with ONS PRN Follow-Up By: 10/12/19 Additional Comments F/u for stable intakes, K labs , need to switch from Nepro to Ensure
[2019-10-10] MEDS ORDERED: PALBOCICLIB 125 MG PO SCH (10:00)
[2019-10-10] MEDS ORDERED: FUROSEMIDE 40 MG PO SCH (10:00)
[2019-10-10] MEDS: FUROSEMIDE 40 MG TAB PO SCH (12:32)
[2019-10-10] MEDS: DIGOXIN 0.125 MG TAB PO SCH (17:31)
[2019-10-10] MEDS: WARFARIN 5 MG TAB PO SCH (17:31)
[2019-10-10] MEDS: PRAVASTATIN 20 MG TAB PO SCH (21:20)
[2019-10-11 04:58] LABS: Basophils # (Auto) 0.1 K/mm3 (0.0-0.1); Basophils % (Auto) 1.9 % (0.0-1.8); Eosinophils # (Auto) 0.1 K/mm3 (0.0-0.4); Eosinophils % (Auto) 2.2 % (0.0-4.3); Hematocrit 23.6 % (30.3-42.9); Hemoglobin 7.5 gm/dl (10.1-14.3); Lymphocytes # (Auto) 0.7 K/mm3 (1.2-5.4); Mean Corpuscular HGB Conc 32 % (30-34); Monocytes # (Auto) 0.2 K/mm3 (0.0-0.8); Monocytes % (Auto) 7.8 % (0.0-7.3); Platelet Count 232 K/mm3 (140-440); Red Blood Count 2.13 M/mm3 (3.65-5.03)
[2019-10-11 04:59] LABS: Mean Corpuscular Volume 111 fl (79-97); Red Cell Distribution Width 21.2 % (13.2-15.2)
[2019-10-11 05:02] LABS: INR 1.16 (0.87-1.13)
[2019-10-11 05:07] LABS: BUN/Creatinine Ratio 14; Blood Urea Nitrogen 10 mg/dL (7-17); Calcium 7.9 mg/dL (8.4-10.2); Hemolysis Index 2
[2019-10-11] MEDS: POTASSIUM CHLORIDE ER 20 MEQ TAB PO SCH (09:14)
[2019-10-11] MEDS: FUROSEMIDE 40 MG TAB PO SCH (09:14)
[2019-10-11] MEDS: LISINOPRIL 20 MG TAB PO SCH (09:15)
[2019-10-11] MEDS: carvediloL 25 MG TAB PO SCH (09:17)
[2019-10-11 13:56] VITALS: BP 108/54
--- NOTE | 2019-10-11 17:02 | Discharge Summary ---
Providers - Providers Date of Admission: 10/08/19 20:57 Date of discharge: 10/11/19 Attending physician: MOIZ BUTTS 10/08/19 13:10 Consult to Physician [CONS] Urgent Comment: Consulting Provider: LACHO THEODORE Physician Instructions: Reason For Exam: hx of hemoperitoneum Primary care physician: DEEDEE BLANCO MD Hospitalization Condition: Good Hospital course: 69-year-old -[place] female with known history of breast cancer status post mastectomy and chemotherapy with recurrent pleural effusion and ascites, history of hypertension, coronary artery disease and atrial fibrillation. She was seen for paracentesis and she was found to have a bloody tap. CT abdomen and pelvis did not reveal significant findings for the hemoperitoneum. She denies any fever or chills, no nausea vomiting, denies any abdominal pain, denies any diarrhea or constipation, no chest pain or shortness of breath. Patient is on chronic anticoagulation. She has been admitted for hemoperitoneum General surgeon Dr. Theodore has been notified by the ER physician. Labs including CBC will be monitored. Past Medical History: atrial fib, cancer, liver disease, renal failure, other (History of glaucoma) - Patient Problems (1) Hemoperitoneum Current Visit: Yes Status: Acute Plan to address problem: H/h stable Will d/c home Hemoperitoneum of unclear etiology. Potentially may have had some sort of bleeding between the last paracentesis and the one yesterday that stopped on its own. CTA of abdomen/pelvis was negative for obvious active bleed. She remains hemodynamically stable with a stable H/H, making significant active hemorrhage unlikely. No surgical intervention planned. Surgery consult appreciated (2) Anemia Current Visit: Yes Status: Acute Plan to address problem: H/H is stable (3) Atrial fibrillation Current Visit: No Status: Chronic Plan to address problem: Rate is controlled. Patient is on chronic anticoagulation. (4) Breast cancer Current Visit: No Status: Chronic Plan to address problem: She is status post right mastectomy and chemotherapy in the past. She has had recurrent pleural effusion and ascites. (5) Hypertension Current Visit: No Status: Chronic Plan to address problem: Blood pressure remained stable. (6) Full code status Current Visit: Yes Status: Acute Disposition: DC-01 TO HOME OR SELFCARE Core Measure Documentation - Palliative Care Palliative Care/ Comfort Measures: Not Applicable - Core Measures Any of the following diagnoses?: none Exam - Constitutional Vitals: Temp Pulse Resp BP Pulse Ox 97.8 F 59 L 20 108/54 100 10/11/19 12:51 10/11/19 12:51 10/11/19 12:51 10/11/19 12:51 10/11/19 12:51 General appearance: Present: no acute distress, well-nourished - EENT Eyes: Present: PERRL ENT: hearing intact, clear oral mucosa - Neck Neck: Present: supple, normal ROM - Respiratory Respiratory effort: normal Respiratory: bilateral: CTA - Cardiovascular Heart rate: 78 Rhythm: regular Heart Sounds: Present: S1 & S2. Absent: rub, click - Extremities Extremities: pulses symmetrical, No edema Peripheral Pulses: within normal limits - Abdominal General gastrointestinal: Present: soft, non-tender, distended, normal bowel sounds Female genitourinary: Present: normal - Rectal Rectal Exam: deferred - Integumentary Integumentary: Present: clear, warm, dry - Musculoskeletal Musculoskeletal: gait normal, strength equal bilaterally - Psychiatric Psychiatric: appropriate mood/affect, intact judgment & insight - Neurologic Neurologic: CNII-XII intact, moves all extremities - Allied Health Allied health notes reviewed: nursing, case management Plan Activity: no restrictions Diet: low cholesterol, low salt Follow up with: DEEDEE BLANCO MD [Primary Care Provider] - 3-5 Days Forms: Warfarin Discharge Instruction
[2019-10-11] MEDS: WARFARIN 5 MG TAB PO SCH (17:15)
[2019-10-11] MEDS: DIGOXIN 0.125 MG TAB PO SCH (17:16)
[2019-10-18 09:50] LABS: Total Protein,Body Fluid TNR (15.0-45.0)
== END 2019-10-11 17:50 | disposition home or self-care (01) | DRG 394 ==
LOC: US 07:40 → ED 07:40 → 2B-ACE 20:57
PROVIDERS: ADMIT Internal Medicine Geriatric Medicine; ATTEND Internal Medicine
PROC: 0W9G3ZZ Drainage of Peritoneal Cavity, Percutaneous Approach (ICD-10-PCS; principal; 2019-10-08)
DX: K66.1 Hemoperitoneum (principal); R18.8 Other ascites; E44.1 Mild protein-calorie malnutrition; D64.9 Anemia, unspecified; K74.60 Unspecified cirrhosis of liver; I48.91 Unspecified atrial fibrillation; I11.0 Hypertensive heart disease with heart failure; I50.9 Heart failure, unspecified; H40.9 Unspecified glaucoma; Z90.11 Acquired absence of right breast and nipple; Z79.82 Long term (current) use of aspirin; Z92.29 Personal history of other drug therapy; Z79.01 Long term (current) use of anticoagulants; Z85.3 Personal history of malignant neoplasm of breast
CPT/HCPCS: 36415; 49083; 74174; 80048; 80053; 82040; 82550; 83735; 84160; 85025; 85027; 85610; 85730; 87116; 89051; 90471; 90686; 93005; 93010; 94760; G0378; A9270-GY; G0008; J7050; Q9967

== ENCOUNTER 2019-11-09 07:42 | Day surgery (SDC) | payer MEDICARE ==
[2019-11-09 09:05] LABS: INR 1.2 (0.87-1.13)
[2019-11-09] MEDS ORDERED: ALBUMIN HUMAN 25% (25 GM/100 ML) INJ IV PRN (09:35)
--- NOTE | 2019-11-09 09:35 | Short Stay Summary ---
Short Stay Documentation Date of service: 11/09/19 - History Principal diagnosis: ascites Past Medical History: renal failure - Allergies and Medications Current Medications: Allergies grape Allergy (Verified 07/02/16 10:13) Itching pineapple Allergy (Verified 07/02/16 10:13) Itching Home Medications Medication Instructions Recorded Confirmed Last Taken Type Furosemide [Furosemide ORAL LIQ] 40 mg PO DAILY #30 ml 10/30/14 11/09/19 11/08/19 Rx 40 mg Warfarin [Coumadin] 5 mg PO DAILY@1700 02/24/15 11/09/19 11/05/19 History 5 mg Aspirin 325 mg PO ONCE 05/14/16 11/09/19 11/08/19 History 325 mg Digoxin [Lanoxin] 0.125 mg PO QDAY 08/20/16 11/09/19 11/08/19 History 0.125mg Palbociclib [Ibrance] 125 mg PO QDAY 06/26/17 11/09/19 11/08/19 History 125 mg lisinopriL [Zestril TAB] 20 mg PO QDAY 10/08/19 11/09/19 11/08/19 History 20 mg Potassium Chloride [K-Dur] 20 meq PO QDAY tablet 10/11/19 11/09/19 11/08/19 Rx 20 meq Pravastatin [Pravachol] 20 mg PO QHS tablet 10/11/19 11/09/19 11/08/19 Rx 20 mg carvediloL [Coreg] 12.5 mg PO BID #60 tablet 10/11/19 11/09/19 11/08/19 Rx 12.5mg - Physical exam General appearance: no acute distress Gastrointestinal: distended - Brief post op/procedure progress note Date of procedure: 11/09/19 Pre-op diagnosis: ascites Post-op diagnosis: same Procedure: US paracentesis Anesthesia: local Findings: moderate to large ascites Surgeon: RAYMUNDO NIETO Estimated blood loss: none Pathology: none Specimen disposition: discarded Condition: stable - Hospital course Hospital course: uneventful - Disposition Condition at discharge: Good Disposition: DC-01 TO HOME OR SELFCARE Short Stay Discharge Plan Follow up with: DEEDEE BLANCO MD [Primary Care Provider] - 7 Days
--- NOTE | 2019-11-09 10:14 | Ultrasound Report ---
ULTRASOUND-GUIDED PARACENTESIS HISTORY: ascites. PROCEDURE: The risks (including but not limited to bleeding, infection, and bowel injury) and benefi ts were explained to the patient and informed consent was obtained. A time out procedure was perform ed. Ultrasound was used to evaluate the abdomen and locate the largest ascites fluid pocket. Once the sk in was marked, the procedure site was prepped and draped in the usual sterile fashion and lidocaine w as used for local anesthesia. A skin mansoor was made and a 5 Belgian centesis catheter was placed. The patient was monitored closely throughout the procedure, and a total of 6500 mL of blood-tinged fluid was aspirated. No labs were ordered. The patient tolerated the procedure well with no complications. IMPRESSION: Successful ultrasound-guided paracentesis as described. Signer Name: Emerson Metcalf Jr, MD Signed: 11/09/2019 10:10 AM Workstation Name: [id number]
[2019-11-09 11:03] VITALS: BP 114/55
== END 2019-11-09 11:30 | disposition home or self-care (01) ==
LOC: CATHLABREC 07:42
PROVIDERS: ATTEND Specialist
DX: R18.8 Other ascites (principal); I11.0 Hypertensive heart disease with heart failure; I50.23 Acute on chronic systolic (congestive) heart failure; E78.00 Pure hypercholesterolemia, unspecified; I48.91 Unspecified atrial fibrillation; Z88.8 Allergy status to other drugs, medicaments and biological substances; Z91.018 Allergy to other foods; Z79.82 Long term (current) use of aspirin; Z79.01 Long term (current) use of anticoagulants; Z79.899 Other long term (current) drug therapy; Z85.3 Personal history of malignant neoplasm of breast; Z98.890 Other specified postprocedural states; Z82.49 Family history of ischemic heart disease and other diseases of the circulatory system
CPT/HCPCS: 36415; 49083; 85610

== ENCOUNTER 2019-12-14 07:43 | Day surgery (SDC) | payer MEDICARE ==
[2019-12-14 10:04] LABS: INR 1.31 (0.87-1.13)
[2019-12-14] MEDS ORDERED: ALBUMIN HUMAN 25% (25 GM/100 ML) INJ IV PRN (10:40)
--- NOTE | 2019-12-14 10:40 | Short Stay Summary ---
Short Stay Documentation Date of service: 12/14/19 - History Principal diagnosis: ascites Past Medical History: renal failure - Allergies and Medications Current Medications: Allergies grape Allergy (Verified 07/02/16 10:13) Itching pineapple Allergy (Verified 07/02/16 10:13) Itching Home Medications Medication Instructions Recorded Confirmed Last Taken Type Furosemide [Furosemide ORAL LIQ] 40 mg PO DAILY #30 ml 10/30/14 12/14/19 12/14/19 Rx 40 mg Warfarin [Coumadin] 5 mg PO DAILY@1700 02/24/15 12/14/19 12/13/19 History 5 mg Aspirin 325 mg PO ONCE 05/14/16 12/14/19 12/13/19 History 325 mg Digoxin [Lanoxin] 0.125 mg PO QDAY 08/20/16 12/14/19 12/13/19 History 0.125mg Palbociclib [Ibrance] 125 mg PO QDAY 06/26/17 12/14/19 12/13/19 History 125 mg lisinopriL [Zestril TAB] 20 mg PO QDAY 10/08/19 12/14/19 12/13/19 History 20 mg Potassium Chloride [K-Dur] 20 meq PO QDAY tablet 10/11/19 12/14/19 12/13/19 Rx 20 meq Pravastatin [Pravachol] 20 mg PO QHS tablet 10/11/19 12/14/19 12/13/19 Rx 20 mg carvediloL [Coreg] 12.5 mg PO BID #60 tablet 10/11/19 12/14/19 12/13/19 Rx 12.5mg - Physical exam General appearance: no acute distress Gastrointestinal: distended - Brief post op/procedure progress note Date of procedure: 12/14/19 Pre-op diagnosis: ascites Post-op diagnosis: same Procedure: US paracentesis Anesthesia: local Findings: moderate ascites Surgeon: RAYMUNDO NIETO Estimated blood loss: none Pathology: none Specimen disposition: discarded Condition: stable - Hospital course Hospital course: uneventful - Disposition Condition at discharge: Good Disposition: DC-01 TO HOME OR SELFCARE Short Stay Discharge Plan Follow up with: DEEDEE BLANCO MD [Primary Care Provider] - 7 Days
[2019-12-14 11:42] VITALS: BP 120/50
--- NOTE | 2019-12-14 12:29 | Ultrasound Report ---
ULTRASOUND-GUIDED PARACENTESIS HISTORY: ascites. PROCEDURE: The risks (including but not limited to bleeding, infection, and bowel injury) and benefi ts were explained to the patient and informed consent was obtained. A time out procedure was perform ed. Ultrasound was used to evaluate the abdomen and locate the largest ascites fluid pocket. Once the sk in was marked, the procedure site was prepped and draped in the usual sterile fashion and lidocaine w as used for local anesthesia. A skin mansoor was made and a 5 [place] centesis catheter was placed. The patient was monitored closely throughout the procedure, and a total of 4400 mL of blood-tinged fluid was aspirated. No labs were ordered. The patient tolerated the procedure well with no complications. IMPRESSION: Successful ultrasound-guided paracentesis as described. Signer Name: Emerson Metcalf Jr, MD Signed: 12/14/2019 12:25 PM Workstation Name: [id number]
== END 2019-12-14 12:01 | disposition home or self-care (01) ==
LOC: CATHLABREC 07:43
PROVIDERS: ATTEND Specialist
DX: R18.8 Other ascites (principal); E78.00 Pure hypercholesterolemia, unspecified; I48.91 Unspecified atrial fibrillation; Z79.82 Long term (current) use of aspirin; Z79.01 Long term (current) use of anticoagulants; Z79.899 Other long term (current) drug therapy; Z88.8 Allergy status to other drugs, medicaments and biological substances; Z91.018 Allergy to other foods; Z82.49 Family history of ischemic heart disease and other diseases of the circulatory system; Z98.890 Other specified postprocedural states
CPT/HCPCS: 36415; 49083; 85610

== ENCOUNTER 2020-07-10 07:07 | Day surgery (SDC) | payer MEDICARE, MEDICAID ==
[2020-07-10 08:18] LABS: INR 1.4 (0.87-1.13)
[2020-07-10 08:19] LABS: Partial Thromboplastin Time 27.5 Sec. (24.2-36.6)
[2020-07-10 12:06] VITALS: BP 114/42
[2020-07-10] MEDS ORDERED: ALBUMIN HUMAN 25% (25 GM/100 ML) INJ IV PRN (12:07)
--- NOTE | 2020-07-10 12:07 | Short Stay Summary ---
Short Stay Documentation Date of service: 07/10/20 - History Principal diagnosis: ascites Past Medical History: renal failure - Allergies and Medications Current Medications: Allergies grape Allergy (Verified 07/02/16 10:13) Itching pineapple Allergy (Verified 07/02/16 10:13) Itching Home Medications Medication Instructions Recorded Confirmed Last Taken Type Warfarin [Coumadin] 5 mg PO DAILY@1700 02/24/15 07/10/20 07/05/20 History Palbociclib [Ibrance] 125 mg PO QDAY 06/26/17 07/10/20 07/09/20 History Acetaminophen [Acetaminophen TAB] 650 mg PO Q4H PRN tablet 06/30/20 07/10/20 07/09/20 Rx Antacid [Alum-Mag Hydrox-Simeth 30 ml PO Q4H PRN oral.liqd 06/30/20 07/10/20 07/09/20 Rx [id number]/5Ml] Docusate Sodium [Colace CAP] 100 mg PO BID #60 capsule 06/30/20 07/10/20 07/09/20 Rx Ferrous Sulfate [Feosol 325 MG tab] 325 mg PO QDAY #30 tablet 06/30/20 07/10/20 07/09/20 Rx Isosorb Dinit/Hydralazine [Bidil 1 each PO Q12HR #60 tablet 06/30/20 07/10/20 07/09/20 Rx 20/37.5MG] Pravastatin [Pravachol] 20 mg PO QHS #30 tablet 06/30/20 07/10/20 07/09/20 Rx carvediloL [Coreg] 3.125 mg PO QDAY #30 tablet 06/30/20 07/10/20 07/09/20 Rx Aspirin 325 mg PO DAILY 07/10/20 07/10/20 07/05/20 History - Physical exam General appearance: no acute distress Gastrointestinal: distended - Brief post op/procedure progress note Date of procedure: 07/10/20 Pre-op diagnosis: ascites Post-op diagnosis: same Procedure: US paracentesis Anesthesia: local Findings: moderate ascites Surgeon: RAYMUNDO NIETO Estimated blood loss: none Pathology: none Specimen disposition: discarded Condition: stable - Hospital course Hospital course: uneventful - Disposition Condition at discharge: Good Disposition: DC-01 TO HOME OR SELFCARE - Discharge Diagnoses (1) Ascites Status: Chronic Qualifiers: Qualified Code(s): R18.8 - Other ascites Short Stay Discharge Plan Follow up with: PRIMARY CAREMD [Primary Care Provider] - 7 Days
--- NOTE | 2020-07-10 12:12 | Ultrasound Report ---
ULTRASOUND-GUIDED PARACENTESIS HISTORY: Ascites. PROCEDURE: The risks (including but not limited to bleeding, infection, and bowel injury) and benefi ts were explained to the patient and informed consent was obtained. A time out procedure was perform ed. Ultrasound was used to evaluate the abdomen and locate the largest ascites fluid pocket. Once the sk in was marked, the procedure site was prepped and draped in the usual sterile fashion and lidocaine w as used for local anesthesia. A skin mansoor was made and a 5 Tristanian centesis catheter was placed. The patient was monitored closely throughout the procedure, and a total of 3600 mL of clear yellow fluid was aspirated. No labs were ordered. The patient tolerated the procedure well with no complications. IMPRESSION: Successful ultrasound-guided paracentesis as described. Signer Name: Emerson Metcalf Jr, MD Signed: 07/10/2020 12:08 PM Workstation Name: [id number]
== END 2020-07-10 12:30 | disposition home or self-care (01) ==
LOC: CATHLABREC 07:07 → EDSTATUS 07:30 → CATHLABREC 12:30
PROVIDERS: ATTEND Specialist
DX: R18.8 Other ascites (principal); I11.0 Hypertensive heart disease with heart failure; I50.9 Heart failure, unspecified; Z98.49 Cataract extraction status, unspecified eye; Z87.01 Personal history of pneumonia (recurrent); Z85.3 Personal history of malignant neoplasm of breast; Z90.11 Acquired absence of right breast and nipple; Z79.899 Other long term (current) drug therapy; Z79.01 Long term (current) use of anticoagulants; Z88.8 Allergy status to other drugs, medicaments and biological substances; Z79.82 Long term (current) use of aspirin; Z98.891 History of uterine scar from previous surgery; Z98.890 Other specified postprocedural states; Z80.1 Family history of malignant neoplasm of trachea, bronchus and lung; Z82.49 Family history of ischemic heart disease and other diseases of the circulatory system
CPT/HCPCS: 36415; 49083; 85610; 85730; P9047

== ENCOUNTER 2020-08-21 07:32 | Day surgery (SDC) | payer MEDICARE, MEDICAID ==
[2020-08-21 08:31] LABS: INR 1.25 (0.87-1.13)
[2020-08-21 08:32] LABS: Partial Thromboplastin Time 27.6 Sec. (24.2-36.6)
[2020-08-21] MEDS ORDERED: ALBUMIN HUMAN 25% (25 GM/100 ML) INJ IV PRN (09:49)
--- NOTE | 2020-08-21 09:50 | Short Stay Summary ---
Short Stay Documentation Date of service: 08/21/20 Narrative H&P: ascites - History Principal diagnosis: asciets Past Medical History: renal failure - Allergies and Medications Current Medications: Allergies grape Allergy (Verified 07/02/16 10:13) Itching pineapple Allergy (Verified 07/02/16 10:13) Itching Home Medications Medication Instructions Recorded Confirmed Last Taken Type Warfarin [Coumadin] 5 mg PO DAILY@1700 02/24/15 08/21/20 08/14/20 History 5 mg Palbociclib [Ibrance] 125 mg PO QDAY 06/26/17 08/21/20 08/20/20 History 125 mg Acetaminophen [Acetaminophen TAB] 650 mg PO Q4H PRN tablet 06/30/20 08/21/20 07/09/20 Rx Antacid [Alum-Mag Hydrox-Simeth 30 ml PO Q4H PRN oral.liqd 06/30/20 08/21/20 07/09/20 Rx [id number]/5Ml] Docusate Sodium [Colace CAP] 100 mg PO BID #60 capsule 06/30/20 08/21/20 08/20/20 Rx 100 mg Ferrous Sulfate [Feosol 325 MG tab] 325 mg PO QDAY #30 tablet 06/30/20 08/21/20 08/20/20 Rx 325 mg Isosorb Dinit/Hydralazine [Bidil 1 each PO Q12HR #60 tablet 06/30/20 08/21/20 08/20/20 Rx 20/37.5MG] 1 Pravastatin [Pravachol] 20 mg PO QHS #30 tablet 06/30/20 08/21/20 08/20/20 Rx 20 mg carvediloL [Coreg] 3.125 mg PO QDAY #30 tablet 06/30/20 08/21/20 08/20/20 Rx 3.125mg Aspirin 325 mg PO DAILY 07/10/20 08/21/20 08/20/20 History 325 mg - Physical exam General appearance: no acute distress Gastrointestinal: distended - Brief post op/procedure progress note Date of procedure: 08/21/20 Pre-op diagnosis: ascites Post-op diagnosis: same Procedure: US paracentesis Anesthesia: local Findings: moderate ascites Surgeon: RAYMUNDO NIETO Estimated blood loss: none Pathology: none Specimen disposition: discarded Condition: stable - Hospital course Hospital course: uneventful - Disposition Condition at discharge: Good Disposition: DC-01 TO HOME OR SELFCARE Short Stay Discharge Plan Follow up with: PRIMARY CAREMD [Primary Care Provider] - 7 Days
--- NOTE | 2020-08-21 10:55 | Ultrasound Report ---
ULTRASOUND-GUIDED PARACENTESIS HISTORY: Ascites. PROCEDURE: The risks (including but not limited to bleeding, infection, and bowel injury) and benefi ts were explained to the patient and informed consent was obtained. A time out procedure was perform ed. Ultrasound was used to evaluate the abdomen and locate the largest ascites fluid pocket. Once the sk in was marked, the procedure site was prepped and draped in the usual sterile fashion and lidocaine w as used for local anesthesia. A skin mansoor was made and a 5 Kyrgyz centesis catheter was placed. The patient was monitored closely throughout the procedure, and a total of 5400 mL of clear yellow fluid was aspirated. No labs were ordered. The patient tolerated the procedure well with no complications. IMPRESSION: Successful ultrasound-guided paracentesis as described. Signer Name: Emerson Metcalf Jr, MD Signed: 08/21/2020 10:51 AM Workstation Name: [id number]
[2020-08-21 11:32] VITALS: BP 107/46
== END 2020-08-21 11:54 | disposition home or self-care (01) ==
LOC: CATHLABREC 07:32
PROVIDERS: ATTEND Specialist
DX: R18.8 Other ascites (principal); I11.0 Hypertensive heart disease with heart failure; I50.23 Acute on chronic systolic (congestive) heart failure; I48.91 Unspecified atrial fibrillation; D64.9 Anemia, unspecified; H40.9 Unspecified glaucoma; E78.00 Pure hypercholesterolemia, unspecified; Z88.8 Allergy status to other drugs, medicaments and biological substances; Z79.82 Long term (current) use of aspirin; Z79.01 Long term (current) use of anticoagulants; Z79.899 Other long term (current) drug therapy; Z92.29 Personal history of other drug therapy; Z85.3 Personal history of malignant neoplasm of breast; Z98.49 Cataract extraction status, unspecified eye; Z87.01 Personal history of pneumonia (recurrent); Z98.890 Other specified postprocedural states; Z80.1 Family history of malignant neoplasm of trachea, bronchus and lung; Z90.11 Acquired absence of right breast and nipple; Z82.49 Family history of ischemic heart disease and other diseases of the circulatory system
CPT/HCPCS: 36415; 49083; 85610; 85730

== ENCOUNTER 2020-09-07 10:17 | Outpatient (CLI) | payer MEDICARE ==
--- NOTE | 2020-09-07 14:09 | PET Report ---
PET/CT HISTORY: C50.911. Restaging of right breast cancer TECHNIQUE: The patient's fasting blood glucose was 102. The patient weighed 103 lbs. The patient w as injected with 13.9 mCi of FDG in the left antecubital fossa at 1131 hours and imaging was started at 1216 hours. The patient was imaged from the skull base to the thighs. All CT scans at this locati on are performed using CT dose reduction for ALARA by means of automated exposure control. Images wer e reviewed on a workstation. COMPARISON: 11/07/2016 FINDINGS: IMAGED BRAIN: [Physiologic FDG uptake. NECK: Physiologic FDG uptake. CHEST WALL: Physiologic FDG uptake. Stable right mastectomy changes. MEDIASTINUM: Physiologic FDG uptake. Stable moderate to severe cardiomegaly. LUNGS: Physiologic FDG uptake. No suspicious pulmonary nodule or mass. Complex right pleural fluid c ollection has decreased in size by 25% since the previous exam. HEPATOBILIARY: Physiologic FDG uptake. Stable partially calcified left hepatic lobe cyst measuring 2 .5 cm. PANCREAS: Physiologic FDG uptake. SPLEEN: Physiologic FDG uptake. KIDNEYS/BLADDER: Physiologic FDG uptake. ADRENAL GLANDS: Physiologic FDG uptake. GI/MESENTERY: Physiologic FDG uptake. Moderate to large ascites is again noted. PELVIC VISCERA: Physiologic FDG uptake. LYMPH NODES: Physiologic FDG uptake. OSSEOUS STRUCTURES: Physiologic FDG uptake. ADDITIONAL FINDINGS: None. IMPRESSION: Negative PET CT. No evidence for disease recurrence or metastasis. Chronic findings as outlined swetha thompson Signer Name: Emerson Metcalf Jr, MD Signed: 09/07/2020 2:05 PM Workstation Name: [id number]
== END 2020-09-07 10:18 | disposition home or self-care (01) ==
LOC: PET 10:17
PROVIDERS: ATTEND Internal Medicine Hematology & Oncology
DX: R18.8 Other ascites (principal); C50.911 Malignant neoplasm of unspecified site of right female breast; R97.8 Other abnormal tumor markers; K76.89 Other specified diseases of liver
CPT/HCPCS: 78815; 82962; A9552

== ENCOUNTER 2020-09-14 08:08 | Day surgery (SDC) | payer MEDICARE ==
[2020-09-14 10:23] LABS: INR 1.2 (0.87-1.13)
[2020-09-14 10:24] LABS: Partial Thromboplastin Time 27.3 Sec. (24.2-36.6)
[2020-09-14] MEDS ORDERED: ALBUMIN HUMAN 25% (25 GM/100 ML) INJ IV PRN (11:17)
--- NOTE | 2020-09-14 11:17 | Procedure Note ---
Date of procedure: 09/14/20 Pre-op diagnosis: Ascites Post-op diagnosis: same Procedure: US guided paracentesis. Findings: See report in PACS. Anesthesia: local Surgeon: GEORGIA AWAN Estimated blood loss: minimal Pathology: none Specimen disposition: discarded Condition: stable Disposition: floor
--- NOTE | 2020-09-14 13:11 | Ultrasound Report ---
Ultrasound-guided paracentesis HISTORY: Ascites. Ascites with dyspnea PROCEDURE: The risks (including but not limited to bleeding, infection, and bowel injury) and benefi ts were explained to the patient and informed consent was obtained. A time out procedure was perform ed. Ultrasound was used to evaluate the abdomen and locate the largest ascites fluid pocket. Once the sk in was marked, the procedure site was prepped and draped in the usual sterile fashion and lidocaine w as used for local anesthesia. A skin mansoor was made and a 6-Setswana paracentesis catheter was placed. The patient was monitored closely throughout the procedure, and a total of 4100 mL of thin yellow fl uid was aspirated. The patient tolerated the procedure well with no complications. IMPRESSION: Successful paracentesis as above with a total of 4100 mL of thin yellow fluid aspirated. Signer Name: Maldonado Raya MD Signed: 09/14/2020 1:07 PM Workstation Name: [id number]
[2020-09-14 15:40] VITALS: BP 109/74
== END 2020-09-14 08:09 | disposition home or self-care (01) ==
LOC: CATHLABREC 08:08
PROVIDERS: ATTEND Specialist
DX: R18.8 Other ascites (principal); R06.09 Other forms of dyspnea; I11.0 Hypertensive heart disease with heart failure; I50.23 Acute on chronic systolic (congestive) heart failure; I48.91 Unspecified atrial fibrillation; J90 Pleural effusion, not elsewhere classified; E78.5 Hyperlipidemia, unspecified; Z80.1 Family history of malignant neoplasm of trachea, bronchus and lung; Z85.3 Personal history of malignant neoplasm of breast; Z90.11 Acquired absence of right breast and nipple; Z88.8 Allergy status to other drugs, medicaments and biological substances; Z79.01 Long term (current) use of anticoagulants; Z79.899 Other long term (current) drug therapy; Z79.82 Long term (current) use of aspirin; Z98.49 Cataract extraction status, unspecified eye; Z87.01 Personal history of pneumonia (recurrent); Z98.891 History of uterine scar from previous surgery; Z98.890 Other specified postprocedural states; Z82.49 Family history of ischemic heart disease and other diseases of the circulatory system
CPT/HCPCS: 36415; 49083; 85610; 85730

== ENCOUNTER 2020-10-17 08:01 | Day surgery (SDC) | payer MEDICARE ==
[2020-10-17 09:14] LABS: INR 1.33 (0.87-1.13)
[2020-10-17 09:15] LABS: Partial Thromboplastin Time 29.4 Sec. (24.2-36.6)
[2020-10-17 14:27] VITALS: BP 104/51
--- NOTE | 2020-10-17 14:59 | Ultrasound Report ---
ULTRASOUND-GUIDED PARACENTESIS INDICATION: Recurrent ascites Procedure was discussed in advance with the patient including possible risks and benefits. Opportunit y for questions was given. Patient has had the procedure several times in the past. Patient reports n o pertinent allergies. Patient is on Coumadin but has not had a dose in 5 days and INR measurement to day was 1.23 which is within normal limits. Timeout was performed. Sonography was used to localize a suitable pocket of ascites in the left lower quadrant. Under local anesthesia and aseptic technique, this collection was accessed using a 5 Frenc h Yueh catheter. 3900 cc of clear yellowish ascitic fluid were withdrawn by vacuum aspiration. The ca theter was removed and the site was secured. Patient tolerated the procedure well and left the depart ment in good condition. IMPRESSION: Successful ultrasound-guided paracentesis Signer Name: Ortiz Martin MD Signed: 10/17/2020 2:55 PM Workstation Name: [id number]
== END 2020-10-17 14:00 | disposition home or self-care (01) ==
LOC: CATHLABREC 08:01
PROVIDERS: ATTEND Specialist
DX: R18.8 Other ascites (principal); I11.0 Hypertensive heart disease with heart failure; I50.23 Acute on chronic systolic (congestive) heart failure; I48.91 Unspecified atrial fibrillation; E78.5 Hyperlipidemia, unspecified; D64.9 Anemia, unspecified; H40.9 Unspecified glaucoma; Z80.1 Family history of malignant neoplasm of trachea, bronchus and lung; Z88.8 Allergy status to other drugs, medicaments and biological substances; Z79.899 Other long term (current) drug therapy; Z79.82 Long term (current) use of aspirin; Z79.01 Long term (current) use of anticoagulants; Z98.49 Cataract extraction status, unspecified eye; Z87.01 Personal history of pneumonia (recurrent); Z85.3 Personal history of malignant neoplasm of breast; Z90.11 Acquired absence of right breast and nipple; Z98.890 Other specified postprocedural states; Z98.891 History of uterine scar from previous surgery; Z82.49 Family history of ischemic heart disease and other diseases of the circulatory system
CPT/HCPCS: 36415; 49083; 85610; 85730

== ENCOUNTER 2020-11-21 07:11 | Outpatient (CLI) | payer MEDICARE ==
[2020-11-21 09:08] LABS: INR 1.3 (0.87-1.13)
--- NOTE | 2020-11-21 10:08 | Procedure Note ---
Date of procedure: 11/21/20 Pre-op diagnosis: Ascites Post-op diagnosis: same Procedure: US guided paracentesis. Findings: Please see radiology report. Anesthesia: local Surgeon: GEORGIA AWAN Estimated blood loss: minimal Pathology: none Specimen disposition: discarded Condition: stable Disposition: other (Discharge.)
[2020-11-21] MEDS ORDERED: ALBUMIN HUMAN 25% (25 GM/100 ML) INJ IV PRN (11:00)
[2020-11-21 12:14] VITALS: BP 104/70
--- NOTE | 2020-11-21 13:16 | Ultrasound Report ---
Ultrasound-guided paracentesis HISTORY: Ascites. PROCEDURE: The risks (including but not limited to bleeding, infection, and bowel injury) and benefi ts were explained to the patient and informed consent was obtained. A time out procedure was perform ed. Ultrasound was used to evaluate the abdomen and locate the largest ascites fluid pocket. Once the sk in was marked, the procedure site was prepped and draped in the usual sterile fashion and lidocaine w as used for local anesthesia. A skin mansoor was made and a 6-Omani paracentesis catheter was placed. The patient was monitored closely throughout the procedure, and a total of 2000 mL of thin yellow fl uid was aspirated. The patient tolerated the procedure well with no complications. IMPRESSION: Successful paracentesis as above with a total of 2000 mL of thin yellow fluid aspirated. Signer Name: Maldonado Raya MD Signed: 11/21/2020 1:12 PM Workstation Name: [id number]
== END 2020-11-21 12:15 | disposition home or self-care (01) ==
LOC: CATHLABREC 07:11
PROVIDERS: ATTEND Specialist
DX: R18.8 Other ascites (principal); I11.0 Hypertensive heart disease with heart failure; I50.23 Acute on chronic systolic (congestive) heart failure; I48.91 Unspecified atrial fibrillation; E78.5 Hyperlipidemia, unspecified; Z87.01 Personal history of pneumonia (recurrent); Z85.3 Personal history of malignant neoplasm of breast; Z90.11 Acquired absence of right breast and nipple; Z88.8 Allergy status to other drugs, medicaments and biological substances; Z79.01 Long term (current) use of anticoagulants; Z88.6 Allergy status to analgesic agent; Z98.49 Cataract extraction status, unspecified eye; Z86.718 Personal history of other venous thrombosis and embolism; Z98.891 History of uterine scar from previous surgery; Z98.890 Other specified postprocedural states; Z80.1 Family history of malignant neoplasm of trachea, bronchus and lung; Z82.49 Family history of ischemic heart disease and other diseases of the circulatory system
CPT/HCPCS: 36415; 49083; 85610; 85730

== ENCOUNTER 2020-12-15 07:40 | Outpatient (CLI) | payer MEDICARE ==
[2020-12-15 09:06] LABS: INR 1.4 (0.87-1.13)
[2020-12-15 09:07] LABS: Partial Thromboplastin Time 29.1 Sec. (24.2-36.6)
[2020-12-15 11:41] VITALS: BP 94/64
[2020-12-15] MEDS ORDERED: ALBUMIN HUMAN 25% (25 GM/100 ML) INJ IV PRN (11:46)
--- NOTE | 2020-12-15 11:46 | Short Stay Summary ---
Short Stay Documentation Narrative H&P: ascites - History Principal diagnosis: ascites Past Medical History: renal failure - Allergies and Medications Current Medications: Allergies grape Allergy (Verified 07/02/16 10:13) Itching pineapple Allergy (Verified 07/02/16 10:13) Itching Home Medications Medication Instructions Recorded Confirmed Last Taken Type Warfarin [Coumadin] 5 mg PO DAILY@1700 02/24/15 12/15/20 12/11/20 History 5 mg Palbociclib [Ibrance] 125 mg PO QDAY 06/26/17 12/15/20 12/14/20 History 125 mg Docusate Sodium [Colace CAP] 100 mg PO BID #60 capsule 06/30/20 12/15/20 12/14/20 Rx 100 mg Ferrous Sulfate [Feosol 325 MG tab] 325 mg PO QDAY #30 tablet 06/30/20 12/15/20 12/14/20 Rx 325 mg Isosorb Dinit/Hydralazine [Bidil 1 each PO Q12HR #60 tablet 06/30/20 12/15/20 12/14/20 Rx 20/37.5MG] 1 Pravastatin [Pravachol] 20 mg PO QHS #30 tablet 06/30/20 12/15/20 12/14/20 Rx 20 mg carvediloL [Coreg] 3.125 mg PO QDAY #30 tablet 06/30/20 12/15/20 12/14/20 Rx 3.125 Aspirin 325 mg PO DAILY 07/10/20 12/15/20 12/14/20 History 325 mg - Physical exam General appearance: no acute distress Gastrointestinal: hypoactive bowel sounds, distended - Brief post op/procedure progress note Date of procedure: 12/15/20 Pre-op diagnosis: ascites Post-op diagnosis: same Procedure: US paracentesis Anesthesia: local Findings: moderate to large ascites Surgeon: RAYMUNDO NIETO Estimated blood loss: none Pathology: none Specimen disposition: discarded Condition: stable - Hospital course Hospital course: uneventful - Disposition Condition at discharge: Good Disposition: DC-01 TO HOME OR SELFCARE Short Stay Discharge Plan Follow up with: PRIMARY CARE, [Primary Care Provider] - 7 Days
--- NOTE | 2020-12-15 15:17 | Ultrasound Report ---
ULTRASOUND GUIDED PARACENTESIS HISTORY: Ascites. COMPARISON: None. CONSENT: The risksbenefits and alternatives to theprocedure were discussed with the patient who agree d toproceed. PROCEDURE: The abdomen was examined using ultrasound. A pocket of fluid was identified in the left lower quadrant. The skin over this fluid was prepped and draped in a sterile fashion. Using ultraso und guidance the fluid was localized. Time-out was performed. Local anesthesia was provided using 1 % Lidocaine. A 5 [place] Dii-psuzl-tywj needle was advanced into the peritoneal cavity using ultrasou nd guidance. 4.5 L of clear yellow fluid was aspirated. No labs were ordered. The patient tolerated t he procedure without difficulty. IMPRESSION Successful ultrasound guided paracentesis. Signer Name: Emerson Metcalf Jr, MD Signed: 12/15/2020 3:12 PM Workstation Name: [id number]
== END 2020-12-15 13:00 | disposition home or self-care (01) ==
LOC: CATHLABREC 07:40
PROVIDERS: ATTEND Specialist
DX: R18.8 Other ascites (principal); I11.0 Hypertensive heart disease with heart failure; I50.9 Heart failure, unspecified; I48.91 Unspecified atrial fibrillation; Z80.1 Family history of malignant neoplasm of trachea, bronchus and lung; Z88.8 Allergy status to other drugs, medicaments and biological substances; Z79.899 Other long term (current) drug therapy; Z79.82 Long term (current) use of aspirin; Z79.01 Long term (current) use of anticoagulants; Z98.49 Cataract extraction status, unspecified eye; Z86.718 Personal history of other venous thrombosis and embolism; Z87.01 Personal history of pneumonia (recurrent); Z85.3 Personal history of malignant neoplasm of breast; Z90.11 Acquired absence of right breast and nipple; Z98.891 History of uterine scar from previous surgery; Z98.890 Other specified postprocedural states; Z82.49 Family history of ischemic heart disease and other diseases of the circulatory system
CPT/HCPCS: 36415; 49083; 85049; 85610; 85730

== ENCOUNTER 2021-01-12 07:42 | Outpatient (CLI) | payer MEDICARE ==
[2021-01-12 08:51] LABS: INR 2.95 (0.87-1.13); Partial Thromboplastin Time 39.1 Sec. (24.2-36.6)
[2021-01-12] MEDS ORDERED: ALBUMIN HUMAN 25% (25 GM/100 ML) INJ IV PRN (11:31)
--- NOTE | 2021-01-12 11:31 | Short Stay Summary ---
Short Stay Documentation Date of service: 01/12/21 Narrative H&P: recurrent ascites - History Principal diagnosis: ascites Past Medical History: renal failure - Allergies and Medications Current Medications: Allergies grape Allergy (Verified 07/02/16 10:13) Itching pineapple Allergy (Verified 07/02/16 10:13) Itching Home Medications Medication Instructions Recorded Confirmed Last Taken Type Warfarin [Coumadin] 5 mg PO DAILY@1700 02/24/15 12/15/20 12/11/20 History 5 mg Palbociclib [Ibrance] 125 mg PO QDAY 06/26/17 12/15/20 12/14/20 History 125 mg Docusate Sodium [Colace CAP] 100 mg PO BID #60 capsule 06/30/20 12/15/20 12/14/20 Rx 100 mg Ferrous Sulfate [Feosol 325 MG tab] 325 mg PO QDAY #30 tablet 06/30/20 12/15/20 12/14/20 Rx 325 mg Isosorb Dinit/Hydralazine [Bidil 1 each PO Q12HR #60 tablet 06/30/20 12/15/20 12/14/20 Rx 20/37.5MG] 1 Pravastatin [Pravachol] 20 mg PO QHS #30 tablet 06/30/20 12/15/20 12/14/20 Rx 20 mg carvediloL [Coreg] 3.125 mg PO QDAY #30 tablet 06/30/20 12/15/20 12/14/20 Rx 3.125 Aspirin 325 mg PO DAILY 07/10/20 12/15/20 12/14/20 History 325 mg - Physical exam General appearance: no acute distress Gastrointestinal: distended - Brief post op/procedure progress note Date of procedure: 01/12/21 Pre-op diagnosis: ascites Post-op diagnosis: same Procedure: US paracentesis Anesthesia: local Findings: moderate ascites Surgeon: RAYMUNDO NIETO Estimated blood loss: none Pathology: none Specimen disposition: discarded - Hospital course Hospital course: uneventful - Disposition Condition at discharge: Good Disposition: DC-01 TO HOME OR SELFCARE Short Stay Discharge Plan Follow up with: PRIMARY CARE, [Primary Care Provider] - 7 Days
--- NOTE | 2021-01-12 11:39 | Ultrasound Report ---
ULTRASOUND-GUIDED PARACENTESIS HISTORY: Ascites. PROCEDURE: The risks (including but not limited to bleeding, infection, and bowel injury) and benefi ts were explained to the patient and informed consent was obtained. A time out procedure was perform ed. Ultrasound was used to evaluate the abdomen and locate the largest ascites fluid pocket. Once the sk in was marked, the procedure site was prepped and draped in the usual sterile fashion and lidocaine w as used for local anesthesia. A skin mansoor was made and a 5 Beninese centesis catheter was placed. The patient was monitored closely throughout the procedure, and a total of 5000 mL of clear yellow fluid was aspirated. No labs were ordered. The patient tolerated the procedure well with no complications. IMPRESSION: Successful ultrasound-guided paracentesis as described. Signer Name: Emerson Metcalf Jr, MD Signed: 01/12/2021 11:34 AM Workstation Name: [id number]
[2021-01-12 16:03] VITALS: BP 123/78
== END 2021-01-12 12:15 | disposition home or self-care (01) ==
LOC: CATHLABREC 07:42
PROVIDERS: ATTEND Specialist
DX: R18.8 Other ascites (principal); I11.0 Hypertensive heart disease with heart failure; I50.23 Acute on chronic systolic (congestive) heart failure; E78.5 Hyperlipidemia, unspecified; H40.9 Unspecified glaucoma; Z88.8 Allergy status to other drugs, medicaments and biological substances; Z79.899 Other long term (current) drug therapy; Z79.82 Long term (current) use of aspirin; Z79.01 Long term (current) use of anticoagulants; Z98.49 Cataract extraction status, unspecified eye; Z87.01 Personal history of pneumonia (recurrent); Z85.3 Personal history of malignant neoplasm of breast; Z86.718 Personal history of other venous thrombosis and embolism; Z90.11 Acquired absence of right breast and nipple; Z98.890 Other specified postprocedural states; Z80.2 Family history of malignant neoplasm of other respiratory and intrathoracic organs; Z82.49 Family history of ischemic heart disease and other diseases of the circulatory system
CPT/HCPCS: 36415; 49083; 85610; 85730; P9047

== ENCOUNTER 2021-02-12 07:45 | Outpatient (CLI) | payer MEDICARE ==
[2021-02-12] MEDS ORDERED: LIDOCAINE (1%) 10 MG/1 ML VIAL 20 ML MDV INFILTRATI ONE (09:24)
[2021-02-12] MEDS ORDERED: ALBUMIN HUMAN 25% (25 GM/100 ML) INJ IV PRN (11:16)
--- NOTE | 2021-02-12 11:16 | Short Stay Summary ---
Short Stay Documentation Date of service: 02/12/21 Narrative H&P: chronic ascites - History Principal diagnosis: ascites Past Medical History: renal failure - Allergies and Medications Current Medications: Allergies grape Allergy (Verified 07/02/16 10:13) Itching pineapple Allergy (Verified 07/02/16 10:13) Itching Home Medications Medication Instructions Recorded Confirmed Last Taken Type Warfarin [Coumadin] 5 mg PO DAILY@1700 02/24/15 02/12/21 02/07/21 History 5 mg Docusate Sodium [Colace CAP] 100 mg PO BID #60 capsule 06/30/20 02/12/21 01/11/21 Rx 100 mg Ferrous Sulfate [Feosol 325 MG tab] 325 mg PO QDAY #30 tablet 06/30/20 02/12/21 02/10/21 Rx 325 mg Isosorb Dinit/Hydralazine [Bidil 1 each PO Q12HR #60 tablet 06/30/20 02/12/21 02/11/21 Rx 20/37.5MG] 1 tab Pravastatin [Pravachol] 20 mg PO QHS #30 tablet 06/30/20 02/12/21 02/11/21 Rx 20 mg carvediloL [Coreg] 3.125 mg PO QDAY #30 tablet 06/30/20 02/12/21 02/11/21 Rx 3.125mg Aspirin 325 mg PO DAILY 07/10/20 02/12/21 02/07/21 History 325 mg Abemaciclib [Verzenio] 150 mg PO DAILY 02/12/21 02/12/21 02/11/21 History 150 mg Brimonidine/Timolol 0.2-0.5% 1 drop OU BID 02/12/21 02/12/21 02/11/21 History [Combigan 0.2-0.5%] 1 drop Furosemide [Lasix] 40 mg PO DAILY 02/12/21 02/12/21 02/11/21 History 40 mg Latanoprost 0.005% 1 drop OU QHS 02/12/21 02/12/21 02/11/21 History 1 drop Letrozole (Nf) [Femara (Nf)] 2.5 mg PO DAILY 02/12/21 02/12/21 02/11/21 History 2.5mg Potassium Chloride [K-Dur] 20 meq PO DAILY 02/12/21 02/12/21 02/11/21 History 20 meq hydrALAZINE [Apresoline TAB] 25 mg PO DAILY 02/12/21 02/12/21 02/11/21 History 25 mg - Physical exam General appearance: no acute distress Gastrointestinal: normoactive bowel sounds, distended - Brief post op/procedure progress note Date of procedure: 02/12/21 Pre-op diagnosis: ascites Post-op diagnosis: same Procedure: US paracentesis Anesthesia: local Findings: moderate ascites Surgeon: RAYMUNDO NIETO Estimated blood loss: none Pathology: none Specimen disposition: discarded Condition: stable - Hospital course Hospital course: uneventful - Disposition Condition at discharge: Good Disposition: DC-01 TO HOME OR SELFCARE Short Stay Discharge Plan Follow up with: PRIMARY CARE, [Primary Care Provider] - 7 Days
--- NOTE | 2021-02-12 11:42 | Ultrasound Report ---
ULTRASOUND-GUIDED PARACENTESIS HISTORY: ascites. PROCEDURE: The risks (including but not limited to bleeding, infection, and bowel injury) and benefi ts were explained to the patient and informed consent was obtained. A time out procedure was perform ed. Ultrasound was used to evaluate the abdomen and locate the largest ascites fluid pocket. Once the sk in was marked, the procedure site was prepped and draped in the usual sterile fashion and lidocaine w as used for local anesthesia. A skin mansoor was made and a 5 Croatian centesis catheter was placed. The patient was monitored closely throughout the procedure, and a total of 3600 mL of clear yellow fluid was aspirated. Samples were sent to the lab for further evaluation per the primary clinicians order s. The patient tolerated the procedure well with no complications. IMPRESSION: Successful ultrasound-guided paracentesis as described. Signer Name: Emerson Metcalf Jr, MD Signed: 02/12/2021 11:38 AM Workstation Name: [id number]
[2021-02-12 12:35] VITALS: BP 111/56
== END 2021-02-12 12:15 | disposition home or self-care (01) ==
LOC: CATHLABREC 07:45
PROVIDERS: ATTEND Specialist
DX: R18.8 Other ascites (principal); I11.0 Hypertensive heart disease with heart failure; I50.23 Acute on chronic systolic (congestive) heart failure; E78.5 Hyperlipidemia, unspecified; Z85.3 Personal history of malignant neoplasm of breast; Z98.49 Cataract extraction status, unspecified eye; Z87.01 Personal history of pneumonia (recurrent); Z79.899 Other long term (current) drug therapy; Z98.891 History of uterine scar from previous surgery; Z98.890 Other specified postprocedural states; Z80.1 Family history of malignant neoplasm of trachea, bronchus and lung; Z90.11 Acquired absence of right breast and nipple; Z82.49 Family history of ischemic heart disease and other diseases of the circulatory system
CPT/HCPCS: 49083

== ENCOUNTER 2021-03-05 00:05 | Emergency (ER) | payer MEDICARE ==
--- NOTE | 2021-03-05 01:16 | Event Note ---
ED Screening Note Date of service: 03/05/21 Time: 01:15 ED Screening Note: Patient complains of intermittent nausea and vomiting and abdominal pain States symptoms started since taking hydralazine Abdomen noted to be distended on exam-patient states swelling due to breast cancer Denies fever, hematemesis, coffee-ground emesis This initial assessment/diagnostic orders/clinical plan/treatment(s) is/are subject to change based on patients health status, clinical progression and re- assessment by fellow clinical providers in the ED. Further treatment and workup at subsequent clinical providers discretion. Patient/guardian urged not to elope from the ED as their condition may be serious if not clinically assessed and managed. Initial orders include: Labs
[2021-03-05 02:00] LABS: Basophils % (Auto) 0.8 % (0.0-1.8); Eosinophils # (Auto) 0.1 K/mm3 (0.0-0.4); Eosinophils % (Auto) 1.2 % (0.0-4.3); Hematocrit 31.4 % (30.3-42.9); Hemoglobin 10.2 gm/dl (10.1-14.3); Lymphocytes # (Auto) 1.1 K/mm3 (1.2-5.4); Lymphocytes % (Auto) 25.5 % (13.4-35.0); Mean Corpuscular HGB Conc 32 % (30-34); Mean Corpuscular Volume 105 fl (79-97); Monocytes # (Auto) 0.3 K/mm3 (0.0-0.8); Monocytes % (Auto) 6.6 % (0.0-7.3); Platelet Count 204 K/mm3 (140-440); Red Blood Count 2.99 M/mm3 (3.65-5.03); Red Cell Distribution Width 16.1 % (13.2-15.2)
[2021-03-05 02:03] LABS: Albumin 3.7 g/dL (3.9-5); Calcium 8.7 mg/dL (8.4-10.2)
[2021-03-05] MEDS ORDERED: POTASSIUM CHLORIDE ER 20 MEQ TAB PO ONE (07:42)
--- NOTE | 2021-03-05 07:48 | Emergency Department Report ---
HPI - General Chief Complaint: Nausea/Vomiting/Diarrhea Time Seen by Provider: 03/05/21 00:58 - HPI HPI: This is a 70-year-old -Israeli female who presents to the emergency department with a complaint of nausea and vomiting that has been going on since last night. It is mostly nausea as the patient has only had 1 episode of vomiting. However, the patient says that she gets recurrent episodes of nausea with vomiting just about every 3 days since she started taking hydralazine about 1 month ago. She denies any abdominal pain. She denies any fever, dysuria, vaginal bleeding or discharge, chest pain or shortness of breath. She has a past medical history of CHF, hypertension, atrial fibrillation on anticoagulation. She has a primary care physician but cannot currently remember the name and follows with Dr. Miranda of [facility]. She has not taken anything for symptoms prior to presentation. No recent travel or sick contacts at home. ED Past Medical Hx - Past Medical History Hx Hypertension: Yes (2003) Hx Congestive Heart Failure: Yes Hx Diabetes: No Hx Deep Vein Thrombosis: (Unk) Hx Asthma: No Hx COPD: No Additional medical history: glaucoma. atrial fibrillation - Surgical History Hx Pacemaker: No Hx Internal Defibrillator: No Hx Breast Surgery: Yes (right mastectomy 2004) Additional Surgical History: eye surgery. drain placed by pulmonary doctor to help with fluid overload. - Social History Smoking Status: Never Smoker - Medications Home Medications: Home Medications Medication Instructions Recorded Confirmed Last Taken Type Warfarin [Coumadin] 5 mg PO DAILY@1700 02/24/15 02/12/21 02/07/21 History 5 mg Docusate Sodium [Colace CAP] 100 mg PO BID #60 capsule 06/30/20 02/12/21 01/11/21 Rx 100 mg Ferrous Sulfate [Feosol 325 MG tab] 325 mg PO QDAY #30 tablet 06/30/20 02/12/21 02/10/21 Rx 325 mg Isosorb Dinit/Hydralazine [Bidil 1 each PO Q12HR #60 tablet 06/30/20 02/12/21 02/11/21 Rx 20/37.5MG] 1 tab Pravastatin [Pravachol] 20 mg PO QHS #30 tablet 06/30/20 02/12/21 02/11/21 Rx 20 mg carvediloL [Coreg] 3.125 mg PO QDAY #30 tablet 06/30/20 02/12/21 02/11/21 Rx 3.125mg Aspirin 325 mg PO DAILY 07/10/20 02/12/21 02/07/21 History 325 mg Abemaciclib [Verzenio] 150 mg PO DAILY 02/12/21 02/12/21 02/11/21 History 150 mg Brimonidine/Timolol 0.2-0.5% 1 drop OU BID 02/12/21 02/12/21 02/11/21 History [Combigan 0.2-0.5%] 1 drop Furosemide [Lasix] 40 mg PO DAILY 02/12/21 02/12/21 02/11/21 History 40 mg Latanoprost 0.005% 1 drop OU QHS 02/12/21 02/12/21 02/11/21 History 1 drop Letrozole (Nf) [Femara (Nf)] 2.5 mg PO DAILY 02/12/21 02/12/21 02/11/21 History 2.5mg Potassium Chloride [K-Dur] 20 meq PO DAILY 02/12/21 02/12/21 02/11/21 History 20 meq hydrALAZINE [Apresoline TAB] 25 mg PO DAILY 02/12/21 02/12/21 02/11/21 History 25 mg Nitrofurantoin [place]/M-Cryst 100 mg PO Q12HR #14 capsule 03/05/21 Unknown Rx [Macrobid CAP] Ondansetron [Zofran Odt] 4 mg PO Q8HR PRN #10 tab.rapdis 03/05/21 Unknown Rx ED Review of Systems ROS: Stated complaint: VOMITING Other details as noted in HPI Comment: All other systems reviewed and negative Constitutional: denies: chills, fever Eyes: denies: eye pain, vision change ENT: denies: ear pain, throat pain Respiratory: denies: cough, shortness of breath Cardiovascular: denies: chest pain, palpitations Gastrointestinal: nausea, vomiting Genitourinary: denies: dysuria, discharge Musculoskeletal: denies: back pain, arthralgia Skin: denies: rash, lesions Neurological: denies: headache, weakness Physical Exam - Physical Exam Vital Signs: Vital Signs 03/05/21 01:02 Temperature 98.4 F Pulse Rate 100 H Respiratory 18 Rate Blood Pressure 102/66 O2 Sat by Pulse 98 Oximetry Physical Exam: GENERAL: The patient is well-developed well-nourished. HENT: Normocephalic. Atraumatic. Patient has moist mucous membranes. EYES: Extraocular motions are intact. NECK: Supple. Trachea is midline. CHEST/LUNGS: Clear to auscultation. There is no respiratory distress noted. HEART/CARDIOVASCULAR: Regular. There is no tachycardia. There is no murmur. ABDOMEN: Abdomen is soft, nontender. Patient has normal bowel sounds. There is no abdominal distention. SKIN: Skin is warm and dry. NEURO: The patient is awake, alert, and cooperative. The patient has no focal neurologic deficits. Normal speech. MUSCULOSKELETAL: There is no tenderness or deformity. There is no limitation range of motion. ED Course Vital Signs 03/05/21 01:02 Temperature 98.4 F Pulse Rate 100 H Respiratory 18 Rate Blood Pressure 102/66 O2 Sat by Pulse 98 Oximetry ED Medical Decision Making - Lab Data Result diagrams: 03/05/21 01:11 03/05/21 01:11 - Medical Decision Making This patient presents to the emergency department with a complaint of nausea and vomiting that has been going on since last night. Essentially the patient only had one episode of vomiting. On examination she does not have any abdominal tenderness to palpation. She does not appear in any respiratory or acute distress. Patient's labs shows mild hypokalemia that was replaced with potassium chloride. She has a very mild urinary tract infection for which she will be placed on Ma crobid. Patient has been reevaluated multiple times over multiple hours and has not had any further nausea or vomiting while in the emergency department. She was able to pass an oral challenge. Vital signs have been reassuring throughout her ED course including being afebrile. For all these reasons patient appears safe for discharge home at this time. She has been instructed to follow-up with her primary care physician and will return to the emergency department with any worsening of her symptoms or with any acute distress. Critical Care Time: No Critical care attestation.: If time is entered above; I have spent that time in minutes in the direct care of this critically ill patient, excluding procedure time. ED Disposition Clinical Impression: Hypokalemia Nausea & vomiting Qualifiers: Vomiting type: unspecified Vomiting Intractability: non-intractable Qualified Code(s): R11.2 - Nausea with vomiting, unspecified UTI (urinary tract infection) Qualifiers: Urinary tract infection type: acute cystitis Hematuria presence: without hematuria Qualified Code(s): N30.00 - Acute cystitis without hematuria Disposition: TO HOME OR SELFCARE Is pt being admited?: No Condition: Stable Instructions: Hypokalemia, Urinary Tract Infection, Adult, [id number], Nausea and Vomiting, Adult Additional Instructions: Please follow-up with a primary care physician in the next few days. Take all medications as prescribed. Return to the emergency department with any worsening of your symptoms, new or concerning symptoms not addressed during this current emergency department visit, or with any acute distress. Prescriptions: Nitrofurantoin [place]/M-Cryst [Macrobid CAP] 100 mg PO Q12HR #14 capsule Ondansetron [Zofran Odt] 4 mg PO Q8HR PRN #10 tab.rapdis PRN Reason: Nausea Referrals: PRIMARY CARE, [Primary Care Provider] - 2-3 Days Time of Disposition: 10:00
[2021-03-05 09:54] LABS: Bilirubin,Urine NEG (Negative); Blood,Urine NEG (Negative); Color,Urine Amber (Yellow); Mucus,Urine 2+ /HPF
[2021-03-05 10:36] VITALS: BP 106/68
== END 2021-03-05 10:34 | disposition home or self-care (01) ==
LOC: ED 00:05
DX: N39.0 Urinary tract infection, site not specified (principal); E87.6 Hypokalemia; R11.2 Nausea with vomiting, unspecified; I11.0 Hypertensive heart disease with heart failure; I50.9 Heart failure, unspecified; Z98.890 Other specified postprocedural states; Z79.899 Other long term (current) drug therapy; Z91.018 Allergy to other foods
CPT/HCPCS: 36415; 80053; 81001; 83690; 85025; 87086

== ENCOUNTER 2021-03-15 07:50 | Day surgery (SDC) | payer MEDICARE ==
[2021-03-15] MEDS ORDERED: ONDANSETRON 4 MG/2 ML INJ IV ONE (09:04)
[2021-03-15] MEDS ORDERED: ONDANSETRON 4 MG/2 ML INJ ONE (09:04)
[2021-03-15 09:51] LABS: Partial Thromboplastin Time 32.1 Sec. (24.2-36.6)
[2021-03-15 09:57] LABS: INR 1.83 (0.87-1.13)
[2021-03-15] MEDS ORDERED: ALBUMIN HUMAN 25% (25 GM/100 ML) INJ IV PRN (11:01)
--- NOTE | 2021-03-15 11:02 | Ultrasound Report ---
ULTRASOUND-GUIDED PARACENTESIS HISTORY: Ascites. PROCEDURE: The risks (including but not limited to bleeding, infection, and bowel injury) and benefi ts were explained to the patient and informed consent was obtained. A time out procedure was perform ed. Ultrasound was used to evaluate the abdomen and locate the largest ascites fluid pocket. Once the sk in was marked, the procedure site was prepped and draped in the usual sterile fashion and lidocaine w as used for local anesthesia. A skin mansoor was made and a 5 Icelandic centesis catheter was placed. The patient was monitored closely throughout the procedure, and a total of 4800 mL of yellow fluid was a spirated. No labs were ordered. The patient tolerated the procedure well with no complications. IMPRESSION: Successful ultrasound-guided paracentesis as described. Signer Name: Emerson Metcalf Jr, MD Signed: 03/15/2021 10:58 AM Workstation Name: [id number]
--- NOTE | 2021-03-15 11:02 | Short Stay Summary ---
Short Stay Documentation Date of service: 03/15/21 Narrative H&P: ascites - History Past Medical History: renal failure (renal insufficiency) - Allergies and Medications Current Medications: Allergies grape Allergy (Verified 07/02/16 10:13) Itching pineapple Allergy (Verified 07/02/16 10:13) Itching Home Medications Medication Instructions Recorded Confirmed Last Taken Type Warfarin [Coumadin] 5 mg PO DAILY@1700 02/24/15 03/15/21 03/09/21 History Docusate Sodium [Colace CAP] 100 mg PO BID #60 capsule 06/30/20 03/15/21 01/11/21 Rx 100 mg Ferrous Sulfate [Feosol 325 MG tab] 325 mg PO QDAY #30 tablet 06/30/20 03/15/21 02/10/21 Rx 325 mg Isosorb Dinit/Hydralazine [Bidil 1 each PO Q12HR #60 tablet 06/30/20 03/15/21 02/11/21 Rx 20/37.5MG] 1 tab Pravastatin [Pravachol] 20 mg PO QHS #30 tablet 06/30/20 03/15/21 02/11/21 Rx 20 mg carvediloL [Coreg] 3.125 mg PO QDAY #30 tablet 06/30/20 03/15/21 02/11/21 Rx 3.125mg Aspirin 325 mg PO DAILY 07/10/20 03/15/21 02/07/21 History 325 mg Abemaciclib [Verzenio] 150 mg PO DAILY 02/12/21 03/15/21 02/11/21 History 150 mg Brimonidine/Timolol 0.2-0.5% 1 drop OU BID 02/12/21 03/15/21 02/11/21 History [Combigan 0.2-0.5%] 1 drop Furosemide [Lasix] 40 mg PO DAILY 02/12/21 03/15/21 02/11/21 History 40 mg Latanoprost 0.005% 1 drop OU QHS 02/12/21 03/15/21 02/11/21 History 1 drop Letrozole (Nf) [Femara (Nf)] 2.5 mg PO DAILY 02/12/21 03/15/21 02/11/21 History 2.5mg Potassium Chloride [K-Dur] 20 meq PO DAILY 02/12/21 03/15/21 02/11/21 History 20 meq hydrALAZINE [Apresoline TAB] 25 mg PO DAILY 02/12/21 03/15/21 02/11/21 History 25 mg Nitrofurantoin [place]/M-Cryst 100 mg PO Q12HR #14 capsule 03/05/21 03/15/21 Unknown Rx [Macrobid CAP] Ondansetron [Zofran Odt] 4 mg PO Q8HR PRN #10 tab.rapdis 03/05/21 03/15/21 Unknown Rx - Physical exam General appearance: mild distress (patient was nauseated) Lungs: Clear to auscultation Gastrointestinal: distended - Brief post op/procedure progress note Date of procedure: 03/15/21 Pre-op diagnosis: ascites Post-op diagnosis: same Procedure: US paracentesis Anesthesia: local Findings: moderate ascites Surgeon: RAYMUNDO NIETO Estimated blood loss: none Pathology: none Specimen disposition: discarded Condition: stable - Hospital course Hospital course: patient was nauseated and treated with zofran. Patient given the opportunity to go to ER if needed. - Disposition Condition at discharge: Good Disposition: DC-01 TO HOME OR SELFCARE Short Stay Discharge Plan Follow up with: HIGINIO KIMBROUGH MD [Primary Care Provider] - 7 Days
[2021-03-15 13:29] VITALS: BP 100/56
== END 2021-03-15 12:25 | disposition home or self-care (01) ==
LOC: CATHLABREC 07:50 → US 07:50 → CATHLABREC 12:25
PROVIDERS: ATTEND Specialist
DX: R18.8 Other ascites (principal); I11.0 Hypertensive heart disease with heart failure; I50.23 Acute on chronic systolic (congestive) heart failure; I48.91 Unspecified atrial fibrillation; D64.9 Anemia, unspecified; Z88.8 Allergy status to other drugs, medicaments and biological substances; Z79.899 Other long term (current) drug therapy; Z79.01 Long term (current) use of anticoagulants; Z79.82 Long term (current) use of aspirin; Z98.49 Cataract extraction status, unspecified eye; Z86.718 Personal history of other venous thrombosis and embolism; Z87.01 Personal history of pneumonia (recurrent); Z85.3 Personal history of malignant neoplasm of breast; Z90.11 Acquired absence of right breast and nipple; Z98.891 History of uterine scar from previous surgery; Z98.890 Other specified postprocedural states; Z80.1 Family history of malignant neoplasm of trachea, bronchus and lung; Z80.8 Family history of malignant neoplasm of other organs or systems; Z82.49 Family history of ischemic heart disease and other diseases of the circulatory system
CPT/HCPCS: 36415; 49083; 85610; 85730; J2405; P9047

== ENCOUNTER 2021-04-05 09:54 | Outpatient (CLI) | payer MEDICARE ==
--- NOTE | 2021-04-05 15:01 | PET Report ---
PET sb to mt subsequent INDICATION / CLINICAL INFORMATION: Restaging breast cancer. TRACER: F-18 FDG 15.3 mCi IV injection of 10:33 AM on 04/05/2021. Blood glucose is 84 mg/dL. TECHNIQUE: Following injection of the above tracer and appropriate delay, PET imaging was performed from the [facility] base to the upper thighs. CT imaging was performed same time for the purposes of anatomic localiza tion. All CT examinations at this institution utilize dose reduction: Automated exposure control. COMPARISON: PET/CT dated 09/07/2020 FINDINGS: HEAD/NECK: No abnormal uptake. CHEST: No abnormal uptake. ABDOMEN/PELVIS: No abnormal uptake. UPPER LEGS: No abnormal uptake. INCIDENTAL CT FINDINGS: Cardiomegaly, loculated right effusion with associated scarring/volume loss, large volume ascites, pa rtially calcified left hepatic cyst and noninflamed diverticulosis is stable. IMPRESSION: 1. Negative for metabolically active metastatic disease. 2. CT findings unchanged. Signer Name: Homero Segura MD Signed: 04/05/2021 2:57 PM Workstation Name: [id number]
== END 2021-04-05 09:55 | disposition home or self-care (01) ==
LOC: PET 09:54
PROVIDERS: ATTEND Internal Medicine Hematology & Oncology
DX: C50.911 Malignant neoplasm of unspecified site of right female breast (principal); R18.8 Other ascites; K76.89 Other specified diseases of liver; J90 Pleural effusion, not elsewhere classified; I51.7 Cardiomegaly; K57.30 Diverticulosis of large intestine without perforation or abscess without bleeding
CPT/HCPCS: 78815; 82962; A9552

== ENCOUNTER 2021-04-11 07:16 | Outpatient (CLI) | payer MEDICARE ==
[2021-04-11 10:41] LABS: INR 1.35 (0.87-1.13); Partial Thromboplastin Time 29.9 Sec. (24.2-36.6)
--- NOTE | 2021-04-11 12:21 | Short Stay Summary ---
Short Stay Documentation Date of service: 04/11/21 Narrative H&P: ascites with renal disease - History Principal diagnosis: ascites Past Medical History: renal failure - Allergies and Medications Current Medications: Allergies grape Allergy (Verified 07/02/16 10:13) Itching pineapple Allergy (Verified 07/02/16 10:13) Itching Home Medications Medication Instructions Recorded Confirmed Last Taken Type Warfarin [Coumadin] 5 mg PO DAILY@1700 02/24/15 04/11/21 04/07/21 History 5 mg Docusate Sodium [Colace CAP] 100 mg PO BID #60 capsule 06/30/20 04/11/21 04/10/21 Rx 100 mg Ferrous Sulfate [Feosol 325 MG tab] 325 mg PO QDAY #30 tablet 06/30/20 04/11/21 04/10/21 Rx 325 mg Isosorb Dinit/Hydralazine [Bidil 1 each PO Q12HR #60 tablet 06/30/20 04/11/21 04/10/21 Rx 20/37.5MG] 1 tab Pravastatin [Pravachol] 20 mg PO QHS #30 tablet 06/30/20 04/11/21 04/10/21 Rx 20 mg carvediloL [Coreg] 3.125 mg PO QDAY #30 tablet 06/30/20 04/11/21 04/10/21 Rx 3.125mg Aspirin 325 mg PO DAILY 07/10/20 04/11/21 04/07/21 History 325 mg Abemaciclib [Verzenio] 150 mg PO DAILY 02/12/21 04/11/21 04/10/21 History 150 mg Brimonidine/Timolol 0.2-0.5% 1 drop OU BID 02/12/21 04/11/21 04/10/21 History [Combigan 0.2-0.5%] 1 drop Furosemide [Lasix] 40 mg PO DAILY 02/12/21 04/11/21 04/10/21 History 40 mg Latanoprost 0.005% 1 drop OU QHS 02/12/21 04/11/21 04/10/21 History 1 drop Letrozole (Nf) [Femara (Nf)] 2.5 mg PO DAILY 02/12/21 04/11/21 04/10/21 History 2.5mg Potassium Chloride [K-Dur] 20 meq PO DAILY 02/12/21 04/11/21 04/10/21 History 20 meq Nitrofurantoin [place]/M-Cryst 100 mg PO Q12HR #14 capsule 03/05/21 04/11/21 04/10/21 Rx [Macrobid CAP] 100 mg Ondansetron [Zofran Odt] 4 mg PO Q8HR PRN #10 tab.rapdis 03/05/21 04/11/21 03/31/21 Rx 4 mg - Physical exam General appearance: no acute distress Gastrointestinal: distended - Brief post op/procedure progress note Date of procedure: 04/11/21 Pre-op diagnosis: ascites Post-op diagnosis: same Procedure: US paracentesis Anesthesia: local Findings: moderate to large ascites Surgeon: RAYMUNDO NIETO Estimated blood loss: none Pathology: none Specimen disposition: discarded Condition: stable - Hospital course Hospital course: uneventful - Disposition Condition at discharge: Good Disposition: DC-01 TO HOME OR SELFCARE - Discharge Diagnoses (1) Ascites Status: Chronic Qualifiers: Short Stay Discharge Plan Follow up with: BLANCA IQBAL MD [Staff Physician] - 7 Days
[2021-04-11] MEDS ORDERED: ALBUMIN HUMAN 25% (25 GM/100 ML) INJ IV PRN (12:25)
--- NOTE | 2021-04-11 12:44 | Ultrasound Report ---
ULTRASOUND-GUIDED PARACENTESIS HISTORY: ascites. PROCEDURE: The risks (including but not limited to bleeding, infection, and bowel injury) and benefi ts were explained to the patient and informed consent was obtained. A time out procedure was perform ed. Ultrasound was used to evaluate the abdomen and locate the largest ascites fluid pocket. Once the sk in was marked, the procedure site was prepped and draped in the usual sterile fashion and lidocaine w as used for local anesthesia. A skin mansoor was made and a 5 Sami centesis catheter was placed. The patient was monitored closely throughout the procedure, and a total of 5200 mL of clear yellow fluid was aspirated. No labs were ordered The patient tolerated the procedure well with no complications. IMPRESSION: Successful ultrasound-guided paracentesis as described. Signer Name: Emerson Metcalf Jr, MD Signed: 04/11/2021 12:39 PM Workstation Name: [id number]
[2021-04-11 13:07] VITALS: BP 100/67
== END 2021-04-11 13:30 | disposition home or self-care (01) ==
LOC: US 07:16
PROVIDERS: ATTEND Specialist
DX: R18.8 Other ascites (principal); I11.0 Hypertensive heart disease with heart failure; I50.23 Acute on chronic systolic (congestive) heart failure; E78.5 Hyperlipidemia, unspecified; I48.91 Unspecified atrial fibrillation; Z87.01 Personal history of pneumonia (recurrent); Z90.11 Acquired absence of right breast and nipple; Z98.891 History of uterine scar from previous surgery; Z88.8 Allergy status to other drugs, medicaments and biological substances; Z79.899 Other long term (current) drug therapy; Z79.01 Long term (current) use of anticoagulants; Z79.82 Long term (current) use of aspirin; Z85.3 Personal history of malignant neoplasm of breast; Z98.49 Cataract extraction status, unspecified eye; Z86.718 Personal history of other venous thrombosis and embolism; Z98.890 Other specified postprocedural states; Z80.1 Family history of malignant neoplasm of trachea, bronchus and lung; Z82.49 Family history of ischemic heart disease and other diseases of the circulatory system
CPT/HCPCS: 36415; 49083; 85610; 85730

== ENCOUNTER 2021-05-11 07:28 | Outpatient (CLI) | payer MEDICARE ==
[2021-05-11 10:06] LABS: INR 1.27 (0.87-1.13)
[2021-05-11 10:07] LABS: Partial Thromboplastin Time 27.9 Sec. (24.2-36.6)
[2021-05-11 13:08] VITALS: BP 103/57
--- NOTE | 2021-05-11 15:29 | Ultrasound Report ---
ULTRASOUND-GUIDED PARACENTESIS INDICATION: Recurrent ascites Procedure was discussed in advance with the patient including possible risks and benefits. Opportunit y for questions was given. Patient has had the procedure many times in the past. Patient reports no p ertinent allergies. Patient is on Coumadin therapy but discontinued 5 days ago and INR today was yusra ured within acceptable range at 1.27. Timeout was performed. Sonography was used to localize a suitable pocket of ascites in the left lower quadrant. Under local anesthesia and aseptic technique, this collection was accessed using a 5 Frenc h Yueh catheter. 6100 cc of clear yellowish ascitic fluid were withdrawn by vacuum aspiration. The ca theter was removed and the site was secured. Patient tolerated the procedure well and left the depart ment in good condition. Patient was sent to observation for planned (ordered) intravenous albumin adm inistration but declined that therapy. Patient left observation in good condition (I discussed with mary jo villalpando's nurse). IMPRESSION: Successful ultrasound-guided paracentesis Signer Name: Ortiz Martin MD Signed: 05/11/2021 3:25 PM Workstation Name: [id number]
== END 2021-05-11 07:29 | disposition home or self-care (01) ==
LOC: US 07:28 → CATHLABREC 07:28
PROVIDERS: ATTEND Specialist
DX: R18.8 Other ascites (principal); I11.0 Hypertensive heart disease with heart failure; I50.23 Acute on chronic systolic (congestive) heart failure; I48.91 Unspecified atrial fibrillation; E78.00 Pure hypercholesterolemia, unspecified; Z87.01 Personal history of pneumonia (recurrent); Z85.3 Personal history of malignant neoplasm of breast; Z86.711 Personal history of pulmonary embolism; Z88.8 Allergy status to other drugs, medicaments and biological substances; Z79.899 Other long term (current) drug therapy; Z79.01 Long term (current) use of anticoagulants; Z98.49 Cataract extraction status, unspecified eye; Z90.11 Acquired absence of right breast and nipple; Z98.891 History of uterine scar from previous surgery; Z98.890 Other specified postprocedural states; Z80.1 Family history of malignant neoplasm of trachea, bronchus and lung
CPT/HCPCS: 36415; 49083; 85610; 85730

== ENCOUNTER 2021-06-11 07:47 | Outpatient (CLI) | payer MEDICARE ==
[2021-06-11 09:32] LABS: INR 1.25 (0.87-1.13)
[2021-06-11 09:33] LABS: Partial Thromboplastin Time 30.5 Sec. (24.2-36.6)
[2021-06-11 11:01] VITALS: BP 110/77
--- NOTE | 2021-06-11 11:31 | Short Stay Summary ---
Short Stay Documentation Date of service: 06/11/21 - History Principal diagnosis: ascites Past Medical History: renal failure - Allergies and Medications Current Medications: Allergies grape Allergy (Verified 07/02/16 10:13) Itching pineapple Allergy (Verified 07/02/16 10:13) Itching Home Medications Medication Instructions Recorded Confirmed Last Taken Type Warfarin [Coumadin] 5 mg PO DAILY@1700 02/24/15 05/11/21 05/06/21 History 5 mg Ferrous Sulfate [Feosol 325 MG tab] 325 mg PO QDAY #30 tablet 06/30/20 05/11/21 05/10/21 Rx 325 mg Pravastatin [Pravachol] 20 mg PO QHS #30 tablet 06/30/20 05/11/21 05/10/21 Rx 20 mg carvediloL [Coreg] 3.125 mg PO QDAY #30 tablet 06/30/20 05/11/21 05/10/21 Rx 3.125mg Aspirin 325 mg PO DAILY 07/10/20 05/11/21 05/06/21 History 325 mg Abemaciclib [Verzenio] 150 mg PO DAILY 02/12/21 05/11/21 05/10/21 History 150 mg Brimonidine/Timolol 0.2-0.5% 1 drop OU BID 02/12/21 05/11/21 05/10/21 History [Combigan 0.2-0.5%] 1 drop Furosemide [Lasix] 40 mg PO DAILY 02/12/21 05/11/21 05/10/21 History 40 mg Latanoprost 0.005% 1 drop OU QHS 02/12/21 05/11/21 05/10/21 History 1 drop Letrozole (Nf) [Femara (Nf)] 2.5 mg PO DAILY 02/12/21 05/11/21 05/10/21 History 2.5mg Potassium Chloride [K-Dur] 20 meq PO DAILY 02/12/21 05/11/21 05/10/21 History 20 meq Ondansetron [Zofran Odt] 4 mg PO Q8HR PRN #10 tab.rapdis 03/05/21 05/11/21 05/03/21 Rx 4 mg - Physical exam General appearance: no acute distress Gastrointestinal: normal, distended - Brief post op/procedure progress note Date of procedure: 06/11/21 Pre-op diagnosis: ascites Post-op diagnosis: same Procedure: US paracentesis Anesthesia: local Findings: moderate ascites Surgeon: RAYMUNDO NIETO Estimated blood loss: none Pathology: none Specimen disposition: discarded Condition: stable - Hospital course Hospital course: uneventful - Disposition Condition at discharge: Good Disposition: 01 HOME / SELF CARE / HOMELESS Short Stay Discharge Plan Follow up with: HIGINIO KIMBROUGH MD [Primary Care Provider] - 7 Days
--- NOTE | 2021-06-11 11:36 | Ultrasound Report ---
ULTRASOUND-GUIDED PARACENTESIS HISTORY: Ascites. PROCEDURE: The risks (including but not limited to bleeding, infection, and bowel injury) and benefi ts were explained to the patient and informed consent was obtained. A time out procedure was perform ed. Ultrasound was used to evaluate the abdomen and locate the largest ascites fluid pocket. Once the sk in was marked, the procedure site was prepped and draped in the usual sterile fashion and lidocaine w as used for local anesthesia. A skin mansoor was made and a 5 Thai centesis catheter was placed. The patient was monitored closely throughout the procedure, and a total of 3800 mL of clear yellow fluid was aspirated. No labs were ordered. The patient tolerated the procedure well with no complications. IMPRESSION: Successful ultrasound-guided paracentesis as described. Signer Name: Emerson Metcalf Jr, MD Signed: 06/11/2021 11:31 AM Workstation Name: [id number]
== END 2021-06-11 11:45 | disposition home or self-care (01) ==
LOC: CATHLABREC 07:47
PROVIDERS: ATTEND Specialist
DX: R18.8 Other ascites (principal); I11.0 Hypertensive heart disease with heart failure; I50.23 Acute on chronic systolic (congestive) heart failure; I48.91 Unspecified atrial fibrillation; E78.00 Pure hypercholesterolemia, unspecified; Z79.899 Other long term (current) drug therapy; Z98.890 Other specified postprocedural states; Z88.8 Allergy status to other drugs, medicaments and biological substances
CPT/HCPCS: 36415; 49083; 85610; 85730

== ENCOUNTER 2021-07-10 07:38 | Outpatient (CLI) | payer MEDICARE ==
[2021-07-10 09:52] LABS: INR 1.44 (0.87-1.13)
[2021-07-10 12:14] VITALS: BP 106/49
--- NOTE | 2021-07-10 12:28 | Ultrasound Report ---
Ultrasound-guided paracentesis Indication: Ascites Procedure: Procedure was discussed with the patient including risks and benefits. Risks of the proced ure including bleeding, infection, and bowel injury were explained. Patient's questions were answered . Informed consent was obtained. The patient was placed in the supine position. Adequate site for paracentesis was identified on the r ight. Skin was marked and prepped and draped in sterile fashion. Local anesthesia was infused. A 6 Fr ench Enabled Employmentesis needle catheter system was inserted into the peritoneal cavity. Approximately 3.7 L of fluid was withdrawn. There were no immediate complications. Impression: Successful ultrasound-guided paracentesis. Signer Name: Bruno Haas DO Signed: 07/10/2021 12:24 PM Workstation Name: [id number]
== END 2021-07-10 13:05 | disposition home or self-care (01) ==
LOC: CATHLABREC 07:38
PROVIDERS: ATTEND Specialist
DX: R18.8 Other ascites (principal); I48.91 Unspecified atrial fibrillation; E78.00 Pure hypercholesterolemia, unspecified; I11.0 Hypertensive heart disease with heart failure; I50.23 Acute on chronic systolic (congestive) heart failure; D64.9 Anemia, unspecified; Z85.3 Personal history of malignant neoplasm of breast; Z79.899 Other long term (current) drug therapy; Z98.890 Other specified postprocedural states; Z79.01 Long term (current) use of anticoagulants; Z79.82 Long term (current) use of aspirin; Z88.8 Allergy status to other drugs, medicaments and biological substances
CPT/HCPCS: 36415; 49083; 85610; C1729

== ENCOUNTER 2021-08-10 07:51 | Day surgery (SDC) | payer MEDICARE ==
[2021-08-10 10:18] LABS: INR 1.16 (0.87-1.13)
[2021-08-10 10:19] LABS: Partial Thromboplastin Time 28.8 Sec. (24.2-36.6)
--- NOTE | 2021-08-10 11:11 | Short Stay Summary ---
Short Stay Documentation Date of service: 08/10/21 Narrative H&P: ascites - History Principal diagnosis: ascites Past Medical History: other (real diease) - Allergies and Medications Current Medications: Allergies grape Allergy (Verified 07/02/16 10:13) Itching pineapple Allergy (Verified 07/02/16 10:13) Itching Home Medications Medication Instructions Recorded Confirmed Last Taken Type Warfarin [Coumadin] 5 mg PO DAILY@1700 02/24/15 05/11/21 05/06/21 History 5 mg Ferrous Sulfate [Feosol 325 MG tab] 325 mg PO QDAY #30 tablet 06/30/20 05/11/21 05/10/21 Rx 325 mg Pravastatin [Pravachol] 20 mg PO QHS #30 tablet 06/30/20 05/11/21 05/10/21 Rx 20 mg carvediloL [Coreg] 3.125 mg PO QDAY #30 tablet 06/30/20 05/11/21 05/10/21 Rx 3.125mg Aspirin 325 mg PO DAILY 07/10/20 05/11/21 05/06/21 History 325 mg Abemaciclib [Verzenio] 150 mg PO DAILY 02/12/21 05/11/21 05/10/21 History 150 mg Brimonidine/Timolol 0.2-0.5% 1 drop OU BID 02/12/21 05/11/21 05/10/21 History [Combigan 0.2-0.5%] 1 drop Furosemide [Lasix] 40 mg PO DAILY 02/12/21 05/11/21 05/10/21 History 40 mg Latanoprost 0.005% 1 drop OU QHS 02/12/21 05/11/21 05/10/21 History 1 drop Letrozole (Nf) [Femara (Nf)] 2.5 mg PO DAILY 02/12/21 05/11/21 05/10/21 History 2.5mg Potassium Chloride [K-Dur] 20 meq PO DAILY 02/12/21 05/11/21 05/10/21 History 20 meq Ondansetron [Zofran Odt] 4 mg PO Q8HR PRN #10 tab.rapdis 03/05/21 05/11/21 05/03/21 Rx 4 mg - Physical exam General appearance: no acute distress Gastrointestinal: distended - Brief post op/procedure progress note Date of procedure: 08/10/21 Pre-op diagnosis: ascites Post-op diagnosis: same Procedure: US paracentesis Anesthesia: local Findings: moderate ascites Surgeon: RAYMUNDO NIETO Estimated blood loss: none Pathology: none Specimen disposition: discarded Condition: stable - Hospital course Hospital course: uneventful - Disposition Condition at discharge: Good Disposition: 01 HOME / SELF CARE / HOMELESS Short Stay Discharge Plan Follow up with: HIGINIO KIMBROUGH MD [Primary Care Provider] - 7 Days
--- NOTE | 2021-08-10 11:35 | Ultrasound Report ---
ULTRASOUND-GUIDED PARACENTESIS HISTORY: Ascites. PROCEDURE: The risks (including but not limited to bleeding, infection, and bowel injury) and benefi ts were explained to the patient and informed consent was obtained. A time out procedure was perform ed. Ultrasound was used to evaluate the abdomen and locate the largest ascites fluid pocket. Once the sk in was marked, the procedure site was prepped and draped in the usual sterile fashion and lidocaine w as used for local anesthesia. A 5 [place] centesis catheter was placed. The patient was monitored cl osely throughout the procedure, and a total of 4200 mL of clear yellow fluid was aspirated. No labs were ordered. The patient tolerated the procedure well with no complications. IMPRESSION: Successful ultrasound-guided paracentesis as described. Signer Name: Emerson Metcalf Jr, MD Signed: 08/10/2021 11:31 AM Workstation Name: [id number]
[2021-08-10 11:49] VITALS: BP 116/33
[2021-08-10] MEDS ORDERED: ALBUMIN HUMAN 25% (25 GM/100 ML) INJ IV PRN (12:00)
== END 2021-08-10 07:52 | disposition home or self-care (01) ==
LOC: CATHLABREC 07:51
PROVIDERS: ATTEND Specialist
DX: R18.8 Other ascites (principal); I11.0 Hypertensive heart disease with heart failure; I50.23 Acute on chronic systolic (congestive) heart failure; I48.91 Unspecified atrial fibrillation; E78.00 Pure hypercholesterolemia, unspecified; D64.9 Anemia, unspecified; Z79.82 Long term (current) use of aspirin; Z79.01 Long term (current) use of anticoagulants; Z79.899 Other long term (current) drug therapy; Z85.3 Personal history of malignant neoplasm of breast; Z98.890 Other specified postprocedural states; Z88.8 Allergy status to other drugs, medicaments and biological substances; Z82.49 Family history of ischemic heart disease and other diseases of the circulatory system
CPT/HCPCS: 36415; 49083; 85610; 85730

== ENCOUNTER 2021-09-10 08:00 | Outpatient (CLI) | payer MEDICARE ==
[2021-09-10 09:56] LABS: INR 1.38 (0.87-1.13); Partial Thromboplastin Time 29.7 Sec. (24.2-36.6)
[2021-09-10 11:33] VITALS: BP 111/70
[2021-09-10] MEDS ORDERED: ALBUMIN HUMAN 25% (25 GM/100 ML) INJ IV PRN (11:46)
--- NOTE | 2021-09-10 11:46 | Short Stay Summary ---
Short Stay Documentation Date of service: 09/10/21 - History Principal diagnosis: ascites Past Medical History: renal failure - Allergies and Medications Current Medications: Allergies grape Allergy (Verified 07/02/16 10:13) Itching pineapple Allergy (Verified 07/02/16 10:13) Itching Home Medications Medication Instructions Recorded Confirmed Last Taken Type Warfarin [Coumadin] 5 mg PO DAILY@1700 02/24/15 09/10/21 09/06/21 History Ferrous Sulfate [Feosol 325 MG tab] 325 mg PO QDAY #30 tablet 06/30/20 09/10/21 09/09/21 Rx Pravastatin [Pravachol] 20 mg PO QHS #30 tablet 06/30/20 09/10/21 09/09/21 Rx carvediloL [Coreg] 3.125 mg PO QDAY #30 tablet 06/30/20 09/10/21 09/09/21 Rx Aspirin 325 mg PO DAILY 07/10/20 09/10/21 09/09/21 History Abemaciclib [Verzenio] 150 mg PO DAILY 02/12/21 09/10/21 09/09/21 History Brimonidine/Timolol 0.2-0.5% 1 drop OU BID 02/12/21 09/10/21 09/09/21 History [Combigan 0.2-0.5%] Furosemide [Lasix] 40 mg PO DAILY 02/12/21 09/10/21 09/09/21 History Latanoprost 0.005% 1 drop OU QHS 02/12/21 09/10/21 09/09/21 History Letrozole (Nf) [Femara (Nf)] 2.5 mg PO DAILY 02/12/21 09/10/21 09/09/21 History Potassium Chloride [K-Dur] 20 meq PO DAILY 02/12/21 09/10/21 09/09/21 History Ondansetron [Zofran Odt] 4 mg PO Q8HR PRN #10 tab.rapdis 03/05/21 09/10/21 09/09/21 Rx - Physical exam General appearance: no acute distress Gastrointestinal: distended - Brief post op/procedure progress note Date of procedure: 09/10/21 Pre-op diagnosis: ascites Post-op diagnosis: same Procedure: US paracentesis Anesthesia: local Findings: moderate ascites Surgeon: RAYMUNDO NIETO Estimated blood loss: none Pathology: none Specimen disposition: discarded Condition: stable - Hospital course Hospital course: uneventful - Disposition Condition at discharge: Good Disposition: 01 HOME / SELF CARE / HOMELESS Short Stay Discharge Plan Follow up with: HIGINIO KIMBROUGH MD [Primary Care Provider] - 7 Days
--- NOTE | 2021-09-10 11:50 | Ultrasound Report ---
ULTRASOUND-GUIDED PARACENTESIS HISTORY: Ascites. PROCEDURE: The risks (including but not limited to bleeding, infection, and bowel injury) and benefi ts were explained to the patient and informed consent was obtained. A time out procedure was perform ed. Ultrasound was used to evaluate the abdomen and locate the largest ascites fluid pocket. Once the sk in was marked, the procedure site was prepped and draped in the usual sterile fashion and lidocaine w as used for local anesthesia. A 5 Italian centesis catheter was placed. The patient was monitored cl osely throughout the procedure, and a total of 2900 mL of blood-tinged fluid was aspirated. No labs were ordered. The patient tolerated the procedure well with no complications. IMPRESSION: Successful ultrasound-guided paracentesis as described. Signer Name: Emerson Metcalf Jr, MD Signed: 09/10/2021 11:46 AM Workstation Name: [id number]
== END 2021-09-10 12:20 | disposition home or self-care (01) ==
LOC: CATHLABREC 08:00
PROVIDERS: ATTEND Specialist
DX: R18.8 Other ascites (principal); Z79.82 Long term (current) use of aspirin; Z79.899 Other long term (current) drug therapy; Z91.018 Allergy to other foods; Z98.890 Other specified postprocedural states
CPT/HCPCS: 36415; 49083; 85610; 85730; P9047

== ENCOUNTER 2021-10-11 07:40 | Outpatient (CLI) | payer MEDICARE ==
[2021-10-11 09:58] LABS: INR 1.25 (0.87-1.13); Partial Thromboplastin Time 27.8 Sec. (24.2-36.6)
[2021-10-11] MEDS ORDERED: ALBUMIN HUMAN 25% (25 GM/100 ML) INJ IV PRN (11:55)
--- NOTE | 2021-10-11 11:55 | Short Stay Summary ---
Short Stay Documentation Date of service: 10/11/21 Narrative H&P: renal disease with recurrent ascites - History Principal diagnosis: ascites Past Medical History: renal failure - Allergies and Medications Current Medications: Allergies grape Allergy (Verified 07/02/16 10:13) Itching pineapple Allergy (Verified 07/02/16 10:13) Itching Home Medications Medication Instructions Recorded Confirmed Last Taken Type Warfarin [Coumadin] 5 mg PO DAILY@1700 02/24/15 10/11/21 10/06/21 History 5 mg Ferrous Sulfate [Feosol 325 MG tab] 325 mg PO QDAY #30 tablet 06/30/20 10/11/21 10/10/21 Rx 325 mg Pravastatin [Pravachol] 20 mg PO QHS #30 tablet 06/30/20 10/11/21 10/10/21 Rx 20 mg carvediloL [Coreg] 3.125 mg PO QDAY #30 tablet 06/30/20 10/11/21 10/10/21 Rx 3.125mg Aspirin 325 mg PO DAILY 07/10/20 10/11/21 10/06/21 History 325 mg Abemaciclib [Verzenio] 150 mg PO DAILY 02/12/21 10/11/21 10/10/21 History 150 mg Brimonidine/Timolol 0.2-0.5% 1 drop OU BID 02/12/21 10/11/21 10/10/21 History [Combigan 0.2-0.5%] 1 drop Furosemide [Lasix] 40 mg PO DAILY 02/12/21 10/11/21 10/10/21 History 40 mg Latanoprost 0.005% 1 drop OU QHS 02/12/21 10/11/21 10/10/21 History 1 drop Letrozole (Nf) [Femara (Nf)] 2.5 mg PO DAILY 02/12/21 10/11/21 10/10/21 History 2.5mg Potassium Chloride [K-Dur] 20 meq PO DAILY 02/12/21 10/11/21 10/10/21 History 20 meq Ondansetron [Zofran Odt] 4 mg PO Q8HR PRN #10 tab.rapdis 03/05/21 10/11/21 10/04/21 Rx 4 mg Active Medications Ondansetron HCl (Ondansetron 4 Mg Odt Tab) 4 mg PO ONCE ONE Stop: 10/11/21 11:52 - Physical exam General appearance: no acute distress Gastrointestinal: distended - Brief post op/procedure progress note Date of procedure: 10/11/21 Pre-op diagnosis: ascites Post-op diagnosis: same Procedure: US paracentesis Anesthesia: local Findings: moderate ascites Surgeon: RAYMUNDO NIETO Estimated blood loss: none Pathology: none Specimen disposition: discarded - Hospital course Hospital course: pt felt mildly nauseated before and after paracentesis. Oral zofran was offered. - Disposition Condition at discharge: Good Disposition: 01 HOME / SELF CARE / HOMELESS Short Stay Discharge Plan Follow up with: HIGINIO KIMBROUGH MD [Primary Care Provider] - 7 Days
[2021-10-11 12:32] VITALS: BP 115/74
[2021-10-11] MEDS ORDERED: ONDANSETRON 4 MG ODT TAB PO ONE (12:51)
--- NOTE | 2021-10-11 14:10 | Ultrasound Report ---
ULTRASOUND-GUIDED PARACENTESIS HISTORY: ascites. PROCEDURE: The risks (including but not limited to bleeding, infection, and bowel injury) and benefi ts were explained to the patient and informed consent was obtained. A time out procedure was perform ed. Ultrasound was used to evaluate the abdomen and locate the largest ascites fluid pocket. Once the sk in was marked, the procedure site was prepped and draped in the usual sterile fashion and lidocaine w as used for local anesthesia. A 5 [place] centesis catheter was placed. The patient was monitored cl osely throughout the procedure, and a total of 3400 mL of clear yellow fluid was aspirated. No labs were ordered. The patient tolerated the procedure well with no complications. IMPRESSION: Successful ultrasound-guided paracentesis as described. Signer Name: Emerson Metcalf Jr, MD Signed: 10/11/2021 2:06 PM Workstation Name: [id number]
== END 2021-10-11 13:20 | disposition home or self-care (01) ==
LOC: CATHLABREC 07:40
PROVIDERS: ATTEND Specialist
DX: R18.8 Other ascites (principal); I11.0 Hypertensive heart disease with heart failure; I50.23 Acute on chronic systolic (congestive) heart failure; E78.00 Pure hypercholesterolemia, unspecified; I48.91 Unspecified atrial fibrillation; Z85.3 Personal history of malignant neoplasm of breast; Z79.01 Long term (current) use of anticoagulants; Z79.82 Long term (current) use of aspirin; Z79.899 Other long term (current) drug therapy; Z98.890 Other specified postprocedural states; Z88.8 Allergy status to other drugs, medicaments and biological substances
CPT/HCPCS: 36415; 49083; 85610; 85730; Q0162; J3490